=== PATIENT | male | born 1960 | race Caucasian/White ===

== ENCOUNTER 2020-12-08 01:03 | Inpatient (IN) | payer MEDICAID ==
[~2020-12-08] VITALS: Ht 170.2 cm; Wt 71.0 kg
--- NOTE | 2020-12-08 01:15 | NUR ---
PT [id number] FROM A [facility] C/O FEVER, TACHYCARDIA, AND LOW O2 SATURATION. PER REPORT PT DESATTED TO 89% W/ 4 LITERS O2 ON FIELD. UPON ARRIVAL, PT PLACED ON 6LPM O2. PT SATTING 98%. PT CONNECTED TO THE RESTORATIVE ART EMBALMER AND POX.
--- NOTE | 2020-12-08 01:18 | NUR ---
Jhonny blank in [facility] - 12/08/20 at 0119 by FAVIOLA CALLED LAB REGARDING COVID SWABS
--- NOTE | 2020-12-08 01:19 | NUR ---
CALLED LAB REGARDING COVID SWABS
[2020-12-08] MEDS ORDERED: ACETAMINOPHEN 650 MG/SUPP.RECT RC ONE ×2 (01:22→01:30)
--- NOTE | 2020-12-08 01:23 | NUR ---
BLOOD COLLECTED AND SENT TO LAB
--- NOTE | 2020-12-08 01:29 | NUR ---
XRAY AT BEDSIDE
--- NOTE | 2020-12-08 01:35 | NUR ---
MCLAREN FLINT ([phone]) PT'S DAUGHTER (ОЛЕГ): [phone]
[2020-12-08 01:37] LABS: BASOPHILS # (AUTO) 0.1 /CMM (0.0-0.2); EOSINOPHILS % (AUTO) 0.2 % (0.0-6.0); HEMATOCRIT 42 % (39-51); LYMPHOCYTES # (AUTO) 2.1 /CMM (0.8-4.8); LYMPHOCYTES % (AUTO) 17.3 % (20.0-44.0); MEAN CORPUSCULAR HGB CONC 31 g/dl (31.0-36.0); MEAN CORPUSCULAR VOLUME 79 fL (80-96); MONOCYTES # (AUTO) 0.9 /CMM (0.1-1.30); MONOCYTES % (AUTO) 6.8 % (2.0-12.0); NEUTROPHILS # (AUTO) 9.3 /CMM (1.8-8.9); NEUTROPHILS % (AUTO) 74.7 % (43.0-81.0); PLATELET COUNT (AUTO) 295 /CMM (150-450); RED BLOOD CELL COUNT(AUTO) 5.38 MIL/uL (4.5-6.0); WHITE BLOOD COUNT (AUTO) 12.4 K/uL (4.3-11.0)
[2020-12-08 01:38] LABS: BILIRUBIN,URINE NEGATIVE (NEGATIVE); COLOR,URINE YELLOW (YELLOW); LEUKOCYTE ESTERASE ,URINE NEGATIVE (NEGATIVE); NITRITE, URINE NEGATIVE (NEGATIVE); PROTEIN,URINE 30 mg/dl (NEGATIVE); UGLUCOSE >=1000 mg/dL (NEGATIVE); UROBILINOGEN,URINE 0.2 EU/dL (0.2)
[2020-12-08] MEDS ORDERED: CEFTRIAXONE 1GM BAG (ER ONLY) 50 ML IV ONE (01:48)
--- NOTE | 2020-12-08 01:52 | NUR ---
Attempted to call [facility] to obtain home medication list. No answer.
[2020-12-08] MEDS ORDERED: CEFEPIME 1 GM VIAL ONE (01:59)
[2020-12-08 02:00] LABS: ALANINE AMINOTRANSFERASE 20 U/L (12-78); ALBUMIN 2.7 g/dL (3.4-5.0); ALKALINE PHOSPHATASE 90 U/L (46-116); ASPARTATE AMINOTRANSFERASE 20 U/L (15-37); B-TYPE NATRIURETIC PEPTIDE 232 PG/ML (0-125); BILIRUBIN,DIRECT 0.1 mg/dL (0.0-0.2); BILIRUBIN,TOTAL 0.4 mg/dL (0.2-1.0); CALCIUM, SERUM 9.1 mg/dL (8.5-10.1); CARBON DIOXIDE 30 mmol/L (21-32); CHLORIDE 103 mmol/L (98-107); CREATININE 1.2 mg/dL (0.6-1.3); POTASSIUM 3.8 mmol/L (3.5-5.1); SODIUM SERUM 143 mmol/L (136-145); TOTAL PROTEIN, SERUM 6.8 g/dL (6.4-8.2); UREA NITROGEN, BLOOD 32 mg/dL (7-18)
[2020-12-08] MEDS ORDERED: CEFTRIAXONE 1GM BAG (ER ONLY) 1 GM/50 ML PIGGYBACK IV ONE (02:00)
[2020-12-08] MEDS ORDERED: CEFEPIME 1 GM in IV D5W 50 ML IV ONE (02:00)
[2020-12-08] MEDS ORDERED: IV NS 0.9% 1,000 ML BAG IV ONE ×3 (02:00→02:30)
[2020-12-08] MEDS ORDERED: AZITHROMYCIN 500 MG in IV D5W 250 ML IV ONE (02:00)
--- NOTE | 2020-12-08 02:00 | NUR ---
LACTIC 3.4 GLUCOSE 375
[2020-12-08 02:02] LABS: BACTERIA,URINE None seen /HPF (None Seen); CALCIUM OXALATE CRYSTALS,UR Many /HPF (None Seen); SQUAMOUS EPITHELIAL CELL,UR Few /HPF (None Seen)
[2020-12-08 02:02] LABS: GLUCOSE 375 mg/dL (74-106)
[2020-12-08] MEDS ORDERED: AZITHROMYCIN 500 MG VIAL ONE (02:10)
[2020-12-08] MEDS ORDERED: MAGNESIUM HYDROXIDE 30 ML UDC PO PRN (03:00)
[2020-12-08] MEDS ORDERED: ONDANSETRON HCL/PF 4 MG/2 ML VIAL IVP PRN (03:00)
[2020-12-08] MEDS ORDERED: IV NS 0.9% 1,000 ML IV PRN (03:00)
[2020-12-08] MEDS ORDERED: MORPHINE SULFATE INJ 2 MG/ML DISP.SYRIN IV PRN (03:00)
[2020-12-08] MEDS ORDERED: Z GUARD REMEDY 2 OZ OINT TP PRN (03:00)
[2020-12-08] MEDS ORDERED: MAG HYDROX/AL HYDROX/SIMETH 30 ML UDC PO PRN (03:00)
[2020-12-08] MEDS ORDERED: ENOXAPARIN SODIUM 40 MG/0.4 ML DISP.SYRIN SQ ONE (03:10)
[2020-12-08] MEDS: ENOXAPARIN SODIUM 40 MG/0.4 ML DISP.SYRIN SQ SCH ×2 (03:11→20:22)
--- NOTE | 2020-12-08 06:09 | NUR ---
REPORT GIVEN TO GOLDY NICHOLAS FOR SELMA
--- NOTE | 2020-12-08 07:05 | NUR ---
PT TRANSFERRED TO ROOM VIA ACLS PROTOCOL
--- NOTE | 2020-12-08 07:10 | NUR ---
COAL HIKER ADMITTING NOTES PT BROUGHT TO [facility] UNIT FROM ER. REPORT OBTAIN FROM NIGHT NURSE. NOT IN ANY ACUTE DISTRESS. PT IS OBTUNDED, NON VERBAL, BUT ABLE TO OPEN EYES. SKIN IS WARM AND DRY TO TOUCH. ON TRACHEOSTOMY COLLAR, O2 AT 6LPM WITH O2 SATURATION OF 98%.. RENDON CATHETER IN PLACE DRAWING YELLOW COLORED URINE. GTF INTACT WITH NO RESIDUAL, NPO STATUS. LEFT & RIGHT FOREARM IV #18 INTACT AND FLUSHED WELL. HEAD OF BED KEPT ELEVATED. WILL CONTINUE TO MONITOR.
--- NOTE | 2020-12-08 07:19 | NUR ---
TELE-1/LABORER ORCHARD PER BLOW MOLDING MACHINE TENDER NO TELE BOXES AVAILABLE. ENDORSED TO KATLYN WINSLOW FOR CONT OF CARE.
[2020-12-08 07:25] VITALS: BP 136/84
[2020-12-08 08:00] VITALS: BP 136/84
--- NOTE | 2020-12-08 08:36 | NUR ---
RT NOTE: PATIENT SUCTIONED AND LAVAGED TO OBTAIN LARGE AMOUNT OF THICK GREEN/BROWN SECRETIONS. PATIENT IS ON T-PIECE 5LPM OXYGEN WITH PE04=168%. NOTED TRACH SITE TO BE RED AND NOTIFIED CHARGE NURSE(RICCI). WILL CONTINUE TO MONITOR.
[2020-12-08] MEDS ORDERED: NUT.237L30 GT (08:55)
[2020-12-08] MEDS ORDERED: SUCR1ORA15 GT (08:55)
[2020-12-08] MEDS ORDERED: ASPI-1169 GT (08:55)
[2020-12-08] MEDS ORDERED: AMLO10TA4 GT (08:55)
[2020-12-08] MEDS ORDERED: IPRA3AMP23 IH ×2 (08:55)
[2020-12-08] MEDS ORDERED: PANT40TA49 GT (08:55)
[2020-12-08] MEDS ORDERED: LEVE500T9 GT (08:55)
[2020-12-08] MEDS ORDERED: VALS320T2 GT (08:55)
[2020-12-08] MEDS ORDERED: PANTOPRAZOLE 40 MG VIAL IV SCH (09:00)
[2020-12-08 12:00] VITALS: BP 125/74
[2020-12-08] MEDS ORDERED: CEFEPIME 1 GM in IV D5W 50 ML IV SCH (14:00)
[2020-12-08 16:00] VITALS: BP_SYST 118; BP_SYST 130; BP_DIAS 62; BP_DIAS 72
[2020-12-08] MEDS ORDERED: DEXTROSE 50%-WATER 50 ML DISP.SYRIN IV PRN (18:30)
--- NOTE | 2020-12-08 18:52 | NUR ---
TEXT TRANSCRIBER CLOSING NOTES PT REMAINS OBTUNDED, BUT ABLE TO OPEN EYES. NOT IN ANY DISTRESS NOTED. STILL ON TRACHEOSTOMY COLLAR AT 5LPM WITH O2 SAT >90S. LEFT AND RIGHT FOREARM IV#18 INTACT AND FLUSHED WELL. WILL ENDORSE TO NEXT SHIFT FOR SELMA.
[2020-12-08] MEDS ORDERED: INSULIN REGULAR, HUMAN 100 UNIT/ML 3 ML VIAL SQ PRN (19:00)
--- NOTE | 2020-12-08 19:20 | NUR ---
RN NOTE RECEIVED PT NON VERBAL IN BED BUT PHYSICALLY RESPONSIVE TO VERBAL AND TACTILE STIMULI, IN SEMI HAMILTON'S POSITION, WITH TRACH COLLAR CONNECTED TO 2L OF O2. NO SIGNS OF RESPIRATORY DISTRESS, O2 SATURATION 99% VIA CONTINUOUS PULSE OX MONITORING, NO SIGNS OF PAIN OR DISCOMFORT, SR ON THE TELE MONITOR. RENDON CATHETER PATENT AND IN PLACE DRAINING CLEAR YELLOW URINE. GT PATENT AND FLUSHED. IV SITES PATENT AND FLUSHED WITHOUT COMPLICATIONS NOTED AT SITES, SAFETY MEASURES IN PLACE PER PROTOCOL, BED ALARM ON, BED LOCKED AND IN LOW POSITION, SIDE RAILS UP X 2, WILL MONITOR PATIENT.
[2020-12-08] MEDS: IV NS 0.9% 1,000 ML IV PRN (19:40)
[2020-12-08] MEDS: GLUCERNA 1.2 1,000 ML BOTTLE NG PRN (19:58)
[2020-12-08 20:00] VITALS: BP 117/78
[2020-12-08] MEDS: LEVETIRACETAM SOL (5 ML) 100 MG/ML UDC GT SCH (20:20)
[2020-12-08] MEDS: SUCRALFATE 1 G/10 ML UDC GT SCH (20:20)
--- NOTE | 2020-12-08 22:00 | NUR ---
RN NOTE COMPLETE BED BATH AND LINEN CHANGE COMPLETED, PT TOLERATED WELL. RESUMED TUBE FEEDING WITH RATE OF 40CC/HOUR.
--- NOTE | 2020-12-08 22:09 | NUR ---
RN NOTE SPOKE TO DAUGHTER ON THE PHONE AND GAVE UPDATE ON PATIENT'S STATUS AND PLAN OF CARE.
[2020-12-08] MEDS ORDERED: PIPERACILLIN /TAZOBACTAM 3.375 G VIAL IV ONE ×2 (22:49→22:50)
[2020-12-08] MEDS: ZOSYN IVPB 3.375 G in IV D5W 50ml IV SCH (23:05)
[2020-12-08] MEDS: INSULIN REGULAR, HUMAN 100 UNIT/ML 3 ML VIAL SQ PRN (23:23)
[2020-12-08] MEDS: BLOOD SUGAR DIAGNOSTIC 1 EACH STRIP IN SCH (23:24)
[2020-12-09] VITALS (7 sets, daily range): BP systolic 127–170; BP diastolic 65–84
--- NOTE | 2020-12-09 04:00 | NUR ---
RN NOTE PT SLEEPING IN BED COMFORTABLY WITHOUT SIGNS OF DISTRESS, PAIN OR DISCOMFORT. SAFETY MEASURES IN PLACE, O2 SATURATION 100% VIA CONTINUOUS PULSE OX MONITORING, WILL CONTINUE TO MONITOR.
[2020-12-09] MEDS: HYDROCODONE/APAP 5/325MG TABLET GT PRN (04:27)
[2020-12-09] MEDS: IV NS 0.9% 1,000 ML IV PRN (04:36)
[2020-12-09] MEDS: ZOSYN IVPB 3.375 G in IV D5W 50ml IV SCH (05:11)
[2020-12-09] MEDS: INSULIN REGULAR, HUMAN 100 UNIT/ML 3 ML VIAL SQ PRN ×3 (05:35→17:18)
[2020-12-09] MEDS: BLOOD SUGAR DIAGNOSTIC 1 EACH STRIP IN SCH ×3 (05:36→17:09)
[2020-12-09 05:49] LABS: BASOPHILS # (AUTO) 0.1 /CMM (0.0-0.2); BASOPHILS % (AUTO) 0.7 % (0.0-2.0); EOSINOPHILS % (AUTO) 3.7 % (0.0-6.0); HEMATOCRIT 35 % (39-51); HEMOGLOBIN 10.8 g/dL (13.5-17.5); LYMPHOCYTES # (AUTO) 1.6 /CMM (0.8-4.8); MEAN CORPUSCULAR HGB CONC 31 g/dl (31.0-36.0); MEAN CORPUSCULAR VOLUME 77 fL (80-96); MONOCYTES # (AUTO) 0.7 /CMM (0.1-1.30); MONOCYTES % (AUTO) 6.9 % (2.0-12.0); NEUTROPHILS # (AUTO) 7.7 /CMM (1.8-8.9); NEUTROPHILS % (AUTO) 73.7 % (43.0-81.0); PLATELET COUNT (AUTO) 202 /CMM (150-450); RED BLOOD CELL COUNT(AUTO) 4.47 MIL/uL (4.5-6.0); WHITE BLOOD COUNT (AUTO) 10.4 K/uL (4.3-11.0)
[2020-12-09 06:06] LABS: CALCIUM, SERUM 8.5 mg/dL (8.5-10.1); CREATININE 0.9 mg/dL (0.6-1.3); MAGNESIUM 1.9 mg/dL (1.8-2.4); PHOSPHORUS 2.6 mg/dL (2.5-4.9); POTASSIUM 3.1 mmol/L (3.5-5.1)
--- NOTE | 2020-12-09 06:40 | NUR ---
RN NOTE NO ACUTE CHANGES OBSERVED OVERNIGHT. PT REMAINS NON VERBAL IN BED BUT PHYSICALLY RESPONSIVE TO VERBAL AND TACTILE STIMULI. HEAD OF BEAD KEPT AT SEMI HAMILTON'S POSITION. WITH TRACH COLLAR CONNECTED TO 4L OF O2. NO SIGNS OF RESPIRATORY DISTRESS. RESPIRATIONS EVEN AND UNLABORED, 100% O2 SATURATION VIA CONTINUOUS PULSE OX MONITORING, NO SIGNS OR SYMPTOMS OF PAIN OR DISCOMFORT, SR ON THE TELE MONITOR, RENDON CATHETER PATENT AND IN PLACE DRAINING CLEAR YELLOW URINE VIA GRAVITY, GT PATENT AND FLUSHED. WITH TUBE FEEDING RUNNING AT 60ML/HOUR WITH GOAL OF 80ML/HOUR. NO RESIDUAL NOTED, IV SITES PATENT AND INTACT, WITH NS@ 100ML/HOUR RUNNING ORDERED WITHOUT COMPLICATIONS NOTED AT SITE, ALL NEEDS MET AND ATTENDED TO, TURNED AND REPOSITIONED FOR COMFORT, SAFETY MEASURES IN PLACE PER PROTOCOL, BED ALARM ON, BED LOCKED AND IN LOW POSITION, SIDE RAILS UP X 2, WILL ENDORSE TO MORNING RN FOR SELMA.
--- NOTE | 2020-12-09 07:32 | NUR ---
DESIGNER ARCHITECT OPENING NOTE PATIENT IS IN BED RESTING. PATIENT IS IN NO ACUTE DISTRESS. PATIENT IS ON OXYGEN 4L ON TACH. NO SOB NOTED. HOB ELEVATED. PATIENT IS ON BOX CLOSING MACHINE OPERATOR READING ST 102. SAFETY PRECAUTIONS ARE IN PLACE. BED IN THE LOWEST POSITION WITH SIDE RAILS UP. BED BREAK IS ON, CALL LIGHT WITHIN REACH. WILL CONTINUE TO MONITOR PATIENT CLOSELY THROUGH OUT THE SHIFT.
[2020-12-09] MEDS ORDERED: AZITHROMYCIN 500 MG in IV D5W 250 ML IV SCH (09:00)
[2020-12-09] MEDS: SUCRALFATE 1 G/10 ML UDC GT SCH ×4 (09:21→20:13)
[2020-12-09] MEDS: LEVETIRACETAM SOL (5 ML) 100 MG/ML UDC GT SCH ×2 (09:21→20:13)
[2020-12-09] MEDS: AMLODIPINE BESYLATE 10 MG TABLET GT SCH (09:22)
[2020-12-09] MEDS: ASPIRIN 81 MG TAB.CHEW GT SCH (09:22)
[2020-12-09] MEDS: PANTOPRAZOLE 40 MG/PACK PACK GT SCH (09:23)
[2020-12-09] MEDS: POTASSIUM CHLORIDE 20 MEQ POWDER PACKET GT SCH ×2 (11:13→12:33)
[2020-12-09] MEDS: ACETAMINOPHEN 650 MG/SUPP.RECT RC PRN ×2 (11:31→20:30)
--- NOTE | 2020-12-09 11:57 | NUR ---
RN NOTE PATIENTS BP SYSTOLIC 170s, INFORMED DR. JOSE ARMANDO KRUSE. PER MD SHE WILL LOOK OVER PATIENT, AND PLACE MEDICATION TREATMENT NEEDED.
[2020-12-09] MEDS: PIPERACILLIN /TAZOBACTAM 3.375 G in IV D5W 50 ML IV SCH ×2 (12:34→17:10)
--- NOTE | 2020-12-09 15:51 | NUR ---
MANUFACTURING DEVELOPMENT ENGINEER NOTES PATIENT TEMPERATURE 100.0F, IMPLEMENTED COOLING MEASURES.
[2020-12-09] MEDS: IV 1/2NS 1000 ML 1,000 ML IV PRN (17:24)
--- NOTE | 2020-12-09 18:00 | NUR ---
RN NOTE PER PJ NURSING COOK SOUP STILL AWAITING AN AVAILABLE BED FOR TRANSFER TO CLEAN UNIT. PER PJ SHE INFORM UNIT ONCE BED IS AVAILABLE.
--- NOTE | 2020-12-09 18:25 | NUR ---
SHAREBROKER CLOSING NOTE PATIENT IS IN BED RESTING. PATIENT IS IN NO ACUTE DISTRESS. NO SOB NOTED. PATIENT IS ON 4L OXYGEN ON TRACH COLLAR. PATIENT HAS LOW GRADE FEVER. APPLIED COOLING MEASURES. PATIENT IS SCHEDULED FOR A TRANFER Addendum: 12/09/20 at 1835 by PREM HOLLINGSWORTH RN SHAREBROKER CLOSING NOTE PATIENT IS IN BED RESTING. PATIENT IS IN NO ACUTE DISTRESS. NO SOB NOTED. PATIENT IS ON 4L OXYGEN ON TRACH COLLAR. PATIENT HAS LOW GRADE FEVER. APPLIED COOLING MEASURES. PATIENT IS SCHEDULED FOR TRANSFER, WAITING FOR THE AVAILABLE BED. SAFETY PRECAUTIONS ARE IN PLACE. BED IN THE LOWEST POSITION WITH SIDE RAILS UP. BED BREAK IS COLOR TELEVISION CONSOLE MONITOR LIGHT WITHIN REACH. ENDORSE PATIENT TO THE SAP PORTAL DEVELOPER NURSE FOR SELMA.
[2020-12-09] MEDS: GLUCERNA 1.2 1,000 ML BOTTLE NG PRN (19:27)
--- NOTE | 2020-12-09 19:30 | NUR ---
BASIC SCIENCES DEAN OPENING NOTE RECEIVED PATIENT IN BED. PATIENT IS NONVERBAL, OPENS EYES TO TOUCH. ON OXYGEN VIA TRACH COLLAR AT 2L/MIN HUMIDIFIED BUBBLES. RESPIRATIONS ARE EVEN AND UNLABORED. NO S/S SOB NOTED. NO S/S PAIN AT THIS TIME. EXTERNAL TELE MONITOR READS SINUS RHYTHM / SINUS TACH WITH BBB. IN NO APPARENT DISTRESS. IV ACCESS IN RFA#18 RUNNING 1/2NS@75ML/HR. ANOTHER IV ACCESS IN LEFT WRIST PATENT AND SALINE LOCKED. GTUBE IS PRESENT, NO RESIDUAL, RUNNING FEEDING GLUCERNA@80ML/HR. RENDON CATHETER IS PRESENT DRAINING TO GRAVITY, URINE IS YELLOW AND CLEAR. SAFETY MEASURES IN PLACE. BED IS LOW AND LOCKED. HOB ELEVATED IN SEMI FOWLERS. SIDE RIALS UP X2. CALL LIGHT WITHIN REACH. WILL CONTINUE TO MONITOR THROUGHOUT SHIFT.
[2020-12-09] MEDS ORDERED: VANCOMYCIN 1 GM in IV D5W 250ml IV ONE (20:00)
[2020-12-09] MEDS: ENOXAPARIN SODIUM 40 MG/0.4 ML DISP.SYRIN SQ SCH (20:14)
--- NOTE | 2020-12-09 20:30 | NUR ---
teletypesetter monitor note administered prn tyleonol 650mg rectally for temp 100.4. also applied ice. will monitor throughout shift.
--- NOTE | 2020-12-09 20:49 | NUR ---
telephone station repairer note called [facility] 3 w to see if bed is available. not at this time. spoke with daughter, informed her there is currently no bed for patient to transfer to. also informed her patients temp is 100.4 and im going to give tylenol. informed her will call and leave a message if patient is being transferred tonight.
[2020-12-09] MEDS ORDERED: MEROPENEM 500 MG in IV NS 0.9% 50 ML IV SCH (21:00)
[2020-12-09] MEDS: MEROPENEM 500 MG in IV NS 0.9% 50 ML IV SCH (21:26)
--- NOTE | 2020-12-09 22:27 | NUR ---
satellite television installer note called daughter at number [phone] and informed her that patient is moving to room 311-1.
--- NOTE | 2020-12-09 23:04 | NUR ---
SHELL FREEZING MACHINE OPERATORORDER ENTRY ADMINISTRATOR NOTE - MED SURG 311-1 REPORT GIVEN TO MARVA WINSLOW. PATIENT WAS TRANSFERRED TO MED SURG 3RD FLOOR ROOM 311-1. ALL MEDICATIONS PATIENTS CHART AND BELONGINGS TRANSFERRED WITH HIM. RT DARRELL, 3W INDUSTRIAL RECRUITER AND 3W ORDER ENTRY ADMINISTRATOR VIA BED. PATIENT REMAINED OBTUNDED.TRANSFERED WITH O2 TANK TO [facility]. NO RESP DISTRESS. NO PAIN NOTED. CONNECTED TO DEFIB BOX FOR TANSFER. NO DISTRESS. IV ACCESS MAINTAINED AND KEPT SL. GTUBE MAINTAINED AND CLAMPED. IV POLE WITH IVF AND FEEDING WERE TAKEN WITH PATIENT.
--- NOTE | 2020-12-09 23:26 | NUR ---
MS/ RN NOTE PT RECEIVED. ENDORSED BY GOLDY CORDERO. PT IN STABLE CONDITION. WILL CONTINUE PLAN OF CARE. PT ALERT AND ORIENTED X 1 NON VERBAL. NO SIGNS OF RESPIRATORY DISTRESS NOTED. NO SIGNS OF PAIN NOTED. PT ON TRACH SHILEY #6.PT HAS A RENDON CATHETER RENDON RENDON IN TACH WITH CLEAR YELLOW URINE OUTPUT NOTED. WILL CONTINUE PLAN OF CARE.
[2020-12-10] VITALS: BP 163/83
[2020-12-10] MEDS: BLOOD SUGAR DIAGNOSTIC 1 EACH STRIP IN SCH ×4 (00:28→17:49)
[2020-12-10] MEDS: INSULIN REGULAR, HUMAN 100 UNIT/ML 3 ML VIAL SQ PRN ×4 (00:28→17:49)
[2020-12-10 03:46] VITALS: BP 163/83
[2020-12-10] MEDS: MEROPENEM 500 MG in IV NS 0.9% 50 ML IV SCH (04:25)
[2020-12-10 06:00] VITALS: BP 151/81
--- NOTE | 2020-12-10 06:42 | NUR ---
MS/ RN CLOSING NOTES PT LAYING IN BED. A/O X1. NON VERBAL. EYES OPEN SPONTANEOUSLY TO SOUND AND TOUCH. VENT: SHILEY #6, 4L TRACH COLLAR. O2 SATURATION 100%. 0600 TEMPERATURE TAKEN 99.6. NO FEVER NOTED. RFA GAUGE 20 RUNNING 1/2 NS 75 ML/ HR. PATENT. NO OCCLUSIONS, NO INFILTRATION. G TUBE RUNNING GLUCERNA. MINIMUM RESIDUAL VOLUME NOTED. 0600 BLOOD SUGAR 220, 6 UNITS ADMINISTERED. WILL ENDORSE TO MORNING SHIFT. WILL CONTINUE PLAN OF CARE.
[2020-12-10 07:05] LABS: BASOPHILS # (AUTO) 0.1 /CMM (0.0-0.2); EOSINOPHILS % (AUTO) 7.1 % (0.0-6.0); HEMATOCRIT 34 % (39-51); HEMOGLOBIN 10.5 g/dL (13.5-17.5); LYMPHOCYTES # (AUTO) 1.7 /CMM (0.8-4.8); LYMPHOCYTES % (AUTO) 25.3 % (20.0-44.0); MEAN CORPUSCULAR HGB CONC 31 g/dl (31.0-36.0); MEAN CORPUSCULAR VOLUME 77 fL (80-96); MONOCYTES # (AUTO) 0.6 /CMM (0.1-1.30); MONOCYTES % (AUTO) 9.2 % (2.0-12.0); NEUTROPHILS # (AUTO) 3.9 /CMM (1.8-8.9); NEUTROPHILS % (AUTO) 57.4 % (43.0-81.0); PLATELET COUNT (AUTO) 194 /CMM (150-450); RED BLOOD CELL COUNT(AUTO) 4.32 MIL/uL (4.5-6.0); WHITE BLOOD COUNT (AUTO) 6.8 K/uL (4.3-11.0)
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
[2020-12-10 08:00] VITALS: BP 166/87
[2020-12-10 08:06] LABS: CALCIUM, SERUM 8.7 mg/dL (8.5-10.1); CREATININE 0.8 mg/dL (0.6-1.3); MAGNESIUM 1.9 mg/dL (1.8-2.4); PHOSPHORUS 2.4 mg/dL (2.5-4.9); POTASSIUM 3.1 mmol/L (3.5-5.1)
[2020-12-10] MEDS: SUCRALFATE 1 G/10 ML UDC GT SCH ×4 (08:30→20:54)
[2020-12-10] MEDS: PANTOPRAZOLE 40 MG/PACK PACK GT SCH (08:30)
[2020-12-10] MEDS: LEVETIRACETAM SOL (5 ML) 100 MG/ML UDC GT SCH ×2 (08:31→20:54)
[2020-12-10] MEDS: ASPIRIN 81 MG TAB.CHEW GT SCH (08:31)
[2020-12-10] MEDS: AMLODIPINE BESYLATE 10 MG TABLET GT SCH (08:33)
--- NOTE | 2020-12-10 09:00 | NUR ---
MS/asparagus cutter Morning medication administered via GT, tube flushed before and after administration.
[2020-12-10] MEDS: VANCOMYCIN 1.25 GM in IV D5W 250 ML IV SCH ×2 (09:55→22:44)
[2020-12-10] MEDS: IV 1/2NS 1000 ML 1,000 ML IV PRN (10:04)
--- NOTE | 2020-12-10 10:15 | NUR ---
MS/RN Potassium replacement Potassium replaced with 40meq oral.
[2020-12-10] MEDS ORDERED: POTASSIUM CHLORIDE 20 MEQ TAB.PRT.SR PO SCH (10:30)
--- NOTE | 2020-12-10 10:58 | NUR ---
WOUND CARE CONSULT: PT PRESENTS WITH MULTIPLE SKIN ISSUES INCLUDING GENERALIZED EDEMA, RASH TO PERINEUM AND GROIN AREAS, LEFT EAR DRY SCAB WITH SCAR, SACRAL SCAR, RT UPPER BACK SKIN TEAR AND RT TOES DISCOLORATION, ALL PRESENT ON ADMISSION. RECOMMEND FIRST STEP LOW AIRLOSS MATTRESS. SKIN PROTECTION AND WOUND CARE RECOMMENDATIONS DISCUSSED WITH NURSING STAFF. MD IN AGREEMENT WITH PLAN OF CARE. Addendum: 12/10/20 at 1100 by MAGDI HUA WNDNU Amended: Links added.
[2020-12-10] MEDS: POTASSIUM CHLORIDE 20 MEQ POWDER PACKET PO SCH ×2 (11:12→11:33)
[2020-12-10] MEDS: MEROPENEM 1 G in IV NS 0.9% 100 ML IV SCH ×2 (11:50→20:13)
[2020-12-10] MEDS: GLUCERNA 1.2 1,000 ML BOTTLE NG PRN (12:16)
--- NOTE | 2020-12-10 12:58 | NUR ---
MS/RN S/B Kathy Schumacher, CONTRACT LOADER Seen by CONTRACT LOADER - await final blood culture results, continue with current medications and antibiotics. Provided CONTRACT LOADER with telephone number of daughter to call for update -Tigre -Frida
[2020-12-10 16:00] VITALS: BP 160/81
[2020-12-10] MEDS: CLOTRIMAZOLE 1% 15 GM TUBE TP SCH (16:29)
[2020-12-10] MEDS ORDERED: NEUTRA PHOS 1 POWD.PACKET GT ONE (17:30)
--- NOTE | 2020-12-10 18:24 | NUR ---
MS/RN End note Patient remains in stable condition, discharge planning. Continue to wait for final blood culture results to determine what antibiotics will be needed for discharge. Hasbeen turned and repositioned every 2-3 hours throughout the shift to prevent skin breakdown. Exchanged patient to a isoflex mattress. Will endorse to shift leader.
[2020-12-10 20:00] VITALS: BP 153/71
--- NOTE | 2020-12-10 20:00 | NUR ---
TELERN EYES OPEN, THICK SECRETIONS RT AT BEDSIDE,SUCTIONING. NO RESPIRATORY DISTRESS, ON T PIECE 4L SATURATING 99%. GT FEEDINGS TOLERATED WELL, NO RESIDUALS. HOB AT 45 DEGREES AT ALL TIMES. WATER FLUSHES VIA GT, PER ORDERS. FREQ REPOSITIONING. KEPT DRY AND COMFORTABLE, RENDON TO GRAVITY OUTPUT MONITORED. CONTINUED MONITORING
[2020-12-10] MEDS: ENOXAPARIN SODIUM 40 MG/0.4 ML DISP.SYRIN SQ SCH (20:56)
--- NOTE | 2020-12-10 22:00 | NUR ---
TELERN DUE MEDS GIVEN. NO RESIDUALS. WATER FLUSHES KEEPING TUBE PATENT.
[2020-12-11 00:30] VITALS: BP 159/83
--- NOTE | 2020-12-11 00:30 | NUR ---
TELERN BS 248 SLIDING SCALE COVERAGE GIVEN.
[2020-12-11] MEDS: BLOOD SUGAR DIAGNOSTIC 1 EACH STRIP IN SCH ×4 (00:43→18:22)
[2020-12-11] MEDS: INSULIN REGULAR, HUMAN 100 UNIT/ML 3 ML VIAL SQ PRN ×3 (00:46→18:29)
--- NOTE | 2020-12-11 02:24 | NUR ---
TELERN RT AT BEDSIDE WILL CHANGE INNER CANNULA. THICK BEIGE SECRETIONS.
[2020-12-11] MEDS: MEROPENEM 1 G in IV NS 0.9% 100 ML IV SCH ×3 (04:05→20:47)
--- NOTE | 2020-12-11 06:15 | NUR ---
TELERN TOTALLY BATHED, GT FEEDINGS WELL TOLERATED. HAD LARGE LOOSE GREENISH BM. 375 URINE OUTPUT. REPOSITIONED
--- NOTE | 2020-12-11 07:35 | NUR ---
MS RN OPENING NOTES PATIENT IS IN BED RESTING, OPENS EYES W/ LIMITED TRACKING OF MOVEMENT. BREATHING EVEN AND UNLABORED, WITH T PIECE AND 4L O2, SATURATING 98-100%. IV LINE ON RFA #18 INTACT AND PATENT. GT IS INTACT AND PATENT, FEEDING OF GLUCERNA @ 60CC/HR, NO RESIDUAL NOTED. HOB ELEVATED, ASPIRATION PRECAUTIONS OBSERVED. RENDON CATH IN PLACE, DRAINING YELLOW-COLORED URINE. SAFETY PRECS IN PLACE: BED LOCKED AND ON LOWEST POSITION, SR UP X2, CALL LIGHT W/IN REACH. WILL CONTINUE TO MONITOR.
[2020-12-11 08:00] VITALS: BP 152/87
[2020-12-11 09:40] LABS: CALCIUM, SERUM 8.9 mg/dL (8.5-10.1); CREATININE 0.7 mg/dL (0.6-1.3); POTASSIUM 3.2 mmol/L (3.5-5.1)
[2020-12-11] MEDS: LEVETIRACETAM SOL (5 ML) 100 MG/ML UDC GT SCH ×2 (09:51→20:47)
[2020-12-11] MEDS: ASPIRIN 81 MG TAB.CHEW GT SCH (09:51)
[2020-12-11] MEDS: SUCRALFATE 1 G/10 ML UDC GT SCH ×4 (09:51→20:47)
[2020-12-11] MEDS: PANTOPRAZOLE 40 MG/PACK PACK GT SCH (09:51)
[2020-12-11] MEDS: AMLODIPINE BESYLATE 10 MG TABLET GT SCH (09:51)
[2020-12-11] MEDS: CLOTRIMAZOLE 1% 15 GM TUBE TP SCH ×2 (09:52→16:14)
[2020-12-11 16:00] VITALS: BP 131/67
--- NOTE | 2020-12-11 19:00 | NUR ---
MS RN CLOSING NOTES PATIENT IS IN BED RESTING, OPENS EYES W/ LIMITED TRACKING OF MOVEMENT. BREATHING EVEN AND UNLABORED, WITH T PIECE INTACT, ON 4L O2, SATURATING 97-100%. IV LINE ON RFA #18 INTACT AND PATENT. GT IS INTACT AND PATENT, FEEDING OF GLUCERNA @ 60CC/HR, NO RESIDUAL OBTAINED. ASPIRATION PRECAUTIONS OBSERVED, ELEVATED HOB. RENDON CATH IN PLACE, DRAINING YELLOW-COLORED URINE. SPOKE W/ DTR AND INFORMED ABOUT BLOOD CULTURE RESULT, AWAITING FINAL RESULT. SAFETY PRECS MAINTAINED: BED LOCKED AND ON LOWEST POSITION, SR UP X2, CALL LIGHT W/IN REACH. WILL ENDORSE TO BIOINFORMATICS COMPUTER SCIENTIST RN FOR SELMA.
[2020-12-11 20:22] VITALS: BP 134/68
[2020-12-11] MEDS: ENOXAPARIN SODIUM 40 MG/0.4 ML DISP.SYRIN SQ SCH (20:49)
[2020-12-11] MEDS: VANCOMYCIN 1 GM in IV D5W 250 ML IV SCH (21:52)
--- NOTE | 2020-12-11 22:29 | NUR ---
RT CAME AND SUCTIONED THE PATIENT.
[2020-12-12] VITALS: BP 128/72
[2020-12-12] MEDS: INSULIN REGULAR, HUMAN 100 UNIT/ML 3 ML VIAL SQ PRN ×4 (01:09→18:26)
[2020-12-12] MEDS: GLUCERNA 1.2 1,000 ML BOTTLE NG PRN ×2 (01:19→18:33)
--- NOTE | 2020-12-12 01:37 | NUR ---
RIGHT FA IV INFILTRATED, SWOLLEN AND RED, IV REMOVED,TIP IS INTACT.
[2020-12-12] MEDS: MEROPENEM 1 G in IV NS 0.9% 100 ML IV SCH ×3 (05:26→20:17)
[2020-12-12] MEDS: BLOOD SUGAR DIAGNOSTIC 1 EACH STRIP IN SCH ×4 (06:04→18:24)
[2020-12-12 06:55] LABS: BASOPHILS # (AUTO) 0.1 /CMM (0.0-0.2); BASOPHILS % (AUTO) 0.8 % (0.0-2.0); HEMATOCRIT 35 % (39-51); HEMOGLOBIN 10.9 g/dL (13.5-17.5); LYMPHOCYTES # (AUTO) 1.6 /CMM (0.8-4.8); LYMPHOCYTES % (AUTO) 20.9 % (20.0-44.0); MEAN CORPUSCULAR HGB CONC 31 g/dl (31.0-36.0); MEAN CORPUSCULAR VOLUME 76 fL (80-96); MONOCYTES # (AUTO) 0.6 /CMM (0.1-1.30); MONOCYTES % (AUTO) 7.9 % (2.0-12.0); NEUTROPHILS # (AUTO) 4.8 /CMM (1.8-8.9); NEUTROPHILS % (AUTO) 63.4 % (43.0-81.0); PLATELET COUNT (AUTO) 222 /CMM (150-450); RED BLOOD CELL COUNT(AUTO) 4.59 MIL/uL (4.5-6.0); WHITE BLOOD COUNT (AUTO) 7.6 K/uL (4.3-11.0)
[2020-12-12 07:32] LABS: CALCIUM, SERUM 8.7 mg/dL (8.5-10.1); CREATININE 0.8 mg/dL (0.6-1.3); MAGNESIUM 2.1 mg/dL (1.8-2.4); PHOSPHORUS 2.8 mg/dL (2.5-4.9); POTASSIUM 3.3 mmol/L (3.5-5.1)
[2020-12-12 08:00] VITALS: BP 167/89
--- NOTE | 2020-12-12 08:00 | NUR ---
MS RN OPENING NOTES PATIENT IS IN BED RESTING, OPENS EYES W/ LIMITED TRACKING OF MOVEMENT. BREATHING EVEN AND UNLABORED, WITH T PIECE AND 4L O2, SATURATING 100%. IV LINE ON LT WRIST #18 INTACT AND PATENT. GT IS INTACT AND PATENT, FEEDING OF GLUCERNA @ 60CC/HR, NO RESIDUAL NOTED. HOB ELEVATED, ASPIRATION PRECAUTIONS OBSERVED. RENDON CATH IN PLACE, DRAINING YELLOW-COLORED URINE. TURNED EVERY TWO HRS. SAFETY PRECS IN PLACE: BED LOCKED AND ON LOWEST POSITION, SR UP X2, CALL LIGHT W/IN REACH. WILL CONTINUE TO MONITOR.
[2020-12-12] MEDS: AMLODIPINE BESYLATE 10 MG TABLET GT SCH (09:17)
[2020-12-12] MEDS: PANTOPRAZOLE 40 MG/PACK PACK GT SCH (09:17)
[2020-12-12] MEDS: SUCRALFATE 1 G/10 ML UDC GT SCH ×4 (09:17→21:00)
[2020-12-12] MEDS: ASPIRIN 81 MG TAB.CHEW GT SCH (09:17)
[2020-12-12] MEDS: LEVETIRACETAM SOL (5 ML) 100 MG/ML UDC GT SCH ×2 (09:17→21:00)
[2020-12-12] MEDS: HYDROCODONE/APAP 5/325MG TABLET GT PRN (09:26)
[2020-12-12] MEDS: CLOTRIMAZOLE 1% 15 GM TUBE TP SCH ×2 (09:26→18:38)
[2020-12-12] MEDS: VANCOMYCIN 1 GM in IV D5W 250 ML IV SCH ×2 (09:28→22:27)
[2020-12-12] MEDS ORDERED: POTASSIUM CHLORIDE 20 MEQ POWDER PACKET GT SCH (10:30)
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
[2020-12-12 16:00] VITALS: BP 161/82
--- NOTE | 2020-12-12 19:30 | NUR ---
MS NIKITA INITIAL NOTES RECEIVED REPORT FROM AM NURSE ABHI WHILE DOING OUR ROUNDS. PT IS RESTING AT THIS TIME , RESPIRATION EVEN AND UNLABORED WITH T-PIECE ON COOL AEROSOL AT 4LITERS . OPEN EYES ONLY WHEN YOU TOUCH HIM, SKIN WARM AND DRY TO TOUCH. HE WITH RENDON TO GRAVITY . PATIENT ALSO ON G-TUBE FEEDING GLUCERNA AT 60ML/HR , NO RESIDUAL NOTED AT THIS TIME. NO ASPIRATION WELL. KEPT HIM HOB ON SEMI FOWLERS POSITION. WITH SIDE RAILS X2 UP .KEPT HIM WARM AND COMFORTABLE AT ALL TIMES. WILL CONTINUE MONITORING.
[2020-12-12] MEDS: IV 1/2NS 1000 ML 1,000 ML IV PRN (19:49)
[2020-12-12 20:00] VITALS: BP 145/89
--- NOTE | 2020-12-12 20:18 | NUR ---
RELIEF RN NOTES GIVEN MERREM DUE AT 1999. CHECKED PT ID VERIFICATION PRIOR TO ADMINISTRATION.
[2020-12-12] MEDS: ENOXAPARIN SODIUM 40 MG/0.4 ML DISP.SYRIN SQ SCH (21:01)
--- NOTE | 2020-12-12 22:27 | NUR ---
RELIEF RN NOTES GIVEN VANCO DUE AT 2200. CHECKED PT ID VERIFICATION PRIOR TO ADMINISTRATION. VANCO TROUGH 19.
--- NOTE | 2020-12-13 | NUR ---
MS SIGHTSEEING GUIDE NOTES BLOOD SUGAR CHECKED 204 , 6 UNITS OF INSULIN GIVEN SILVA SQ ORDERED. NO SIGNS OF ANY HYPER GLYCEMIA NOTED, PT TOLERATED G-TUBE FEEDING WELL. NO ASPIRATION NOTED WELL. KEPT HIM WARM AND COMFORTABLE AT ALL TIMES. WILL CONTINUE MONITORING.
[2020-12-13] MEDS: BLOOD SUGAR DIAGNOSTIC 1 EACH STRIP IN SCH ×3 (00:32→12:24)
[2020-12-13] MEDS: INSULIN REGULAR, HUMAN 100 UNIT/ML 3 ML VIAL SQ PRN ×3 (00:40→13:08)
[2020-12-13] MEDS: MEROPENEM 1 G in IV NS 0.9% 100 ML IV SCH ×2 (05:01→11:51)
[2020-12-13 05:55] LABS: BASOPHILS # (AUTO) 0.1 /CMM (0.0-0.2); EOSINOPHILS % (AUTO) 8.3 % (0.0-6.0); HEMATOCRIT 34 % (39-51); HEMOGLOBIN 10.8 g/dL (13.5-17.5); LYMPHOCYTES # (AUTO) 1.7 /CMM (0.8-4.8); LYMPHOCYTES % (AUTO) 20.4 % (20.0-44.0); MEAN CORPUSCULAR HGB CONC 32 g/dl (31.0-36.0); MEAN CORPUSCULAR VOLUME 76 fL (80-96); MONOCYTES # (AUTO) 0.6 /CMM (0.1-1.30); MONOCYTES % (AUTO) 7.3 % (2.0-12.0); NEUTROPHILS # (AUTO) 5.3 /CMM (1.8-8.9); PLATELET COUNT (AUTO) 238 /CMM (150-450); RED BLOOD CELL COUNT(AUTO) 4.48 MIL/uL (4.5-6.0); WHITE BLOOD COUNT (AUTO) 8.4 K/uL (4.3-11.0)
[2020-12-13 06:20] LABS: CALCIUM, SERUM 9.1 mg/dL (8.5-10.1); CREATININE 0.8 mg/dL (0.6-1.3); MAGNESIUM 2.2 mg/dL (1.8-2.4); PHOSPHORUS 2.8 mg/dL (2.5-4.9); POTASSIUM 3.7 mmol/L (3.5-5.1)
--- NOTE | 2020-12-13 07:08 | NUR ---
MS AIR AND HYDRONIC BALANCING TECHNICIAN CLOSING NOTES PT RESTING COMFORTABLY IN BED WITHOUT ANY DISTRESS NOTED. STABLE TROUGHOUT THE NIGHT. G-TUBE FEEDING TOLERATED WELL, NO ASPIRATION NOTED. BLOOD SUGAR 212 , 6 UNITS OF INSULIN GIVEN SILVA SQ ORDERED. MORNING CARE DONE . WILL ENDORSE TO AM NURSE FOR CONTINUITY OF CARE.
--- NOTE | 2020-12-13 07:30 | NUR ---
RN OPENING NOTE. PT IS ADMITTED TO HOSPITAL WITH DX OF SEPSIS AND HYPOXIA. NKA. PT IS AROUSABLE TO LIGHT TOUCH. PT IS UNABLE TO SPEAK. PT IS CURRENTLY ON 3L O2 VIA TRACH. PT HAS O2 SAT OF 98%. PT HAS BP OF 165/80 WITH HR OF 112. 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 PT HAS MULTIPLE WOUNDS ON THE BACK. PT HAS G TUBE PRESENT WITH GLUCERNA. PT HAS IVF ON L WRIST 18 G. PT IS SLEEPING IN BED. BED IN LOWEST POSITION. 2 SIDE RAILS RAISED, CALL LIGHT WITHIN REACH. WILL CONTINUE TO MONITOR.
[2020-12-13 08:00] VITALS: BP_SYST 146; BP_SYST 165; BP_DIAS 79; BP_DIAS 80
[2020-12-13] MEDS: PANTOPRAZOLE 40 MG/PACK PACK GT SCH (08:53)
[2020-12-13] MEDS: ASPIRIN 81 MG TAB.CHEW GT SCH (08:53)
[2020-12-13] MEDS: LEVETIRACETAM SOL (5 ML) 100 MG/ML UDC GT SCH (08:53)
[2020-12-13] MEDS: CLOTRIMAZOLE 1% 15 GM TUBE TP SCH (08:54)
[2020-12-13] MEDS: AMLODIPINE BESYLATE 10 MG TABLET GT SCH (08:54)
[2020-12-13] MEDS: SUCRALFATE 1 G/10 ML UDC GT SCH ×2 (08:54→12:04)
--- NOTE | 2020-12-13 10:05 | NUR ---
PT'S VANCO LEVEL IS 23-HELD VANCO IV.NOTIFIED REJI PHARMACIST.
[2020-12-13 12:00] VITALS: BP 146/79
[2020-12-13] MEDS: GLUCERNA 1.2 1,000 ML BOTTLE NG PRN (12:18)
[2020-12-13] MEDS ORDERED: ENOX40DI SQ (12:42)
[2020-12-13] MEDS ORDERED: METF-440 PO (12:42)
[2020-12-13] MEDS ORDERED: CLOT15CR35 TP (12:42)
--- NOTE | 2020-12-13 17:56 | NUR ---
DISCHARGED TO [facility] VIA AMBULANCE WITH STABLE V/S AND GAVE REPORT TO GOLDY HOLT OF [facility].PT WILL BE IN ROOM 2A.IV H/L REMOVED TO LT WRIST WITH NO BLEEDING NOTED. GT AND RENDON CATHETER INTACT. WOUND TX DONE ORDERED.WITH MULTIPLE UNOPEN AND OPEN BLISTERS AND COVERED WITH FOAM DRSG AFTER CLEANSING WITH NS.NOTIFIED PT'S DAUGHTER,ОЛЕГ OF THE DISCHARGE.
[2020-12-14] MEDS ORDERED: VANCOMYCIN 0.75 GM in IV D5W 250 ML IV SCH (09:00)
== END 2020-12-13 17:30 | disposition home or self-care (01) | DRG 720 ==
LOC: ER 01:06 → TRANSITION 02:31 → TELE1 04:39 → TELE 12-09 23:12 → MED 12-09 23:16 → TELE 12-10 07:35 → MED 12-10 07:37
PROVIDERS: ADMIT Nurse Practitioner Acute Care; ATTEND Registered Nurse
DX: A41.9 Sepsis, unspecified organism (principal); G93.41 Metabolic encephalopathy; J96.01 Acute respiratory failure with hypoxia; R13.10 Dysphagia, unspecified; R53.2 Functional quadriplegia; J69.0 Pneumonitis due to inhalation of food and vomit; Z93.1 Gastrostomy status; E87.2 Acidosis; E11.65 Type 2 diabetes mellitus with hyperglycemia; Z93.0 Tracheostomy status; I10 Essential (primary) hypertension; K56.7 Ileus, unspecified; J98.11 Atelectasis; Y95 Nosocomial condition
CPT/HCPCS: 31720; 36415; 71045-TC; 80048-TC; 80061-TC; 80076-TC; 80202-TC; 81001; 82962-TC; 83605-TC; 83735-TC; 83880; 84100-TC; 84484-TC; 85025-TC; 85730-TC; 86140-TC; 87040-TC; 87081-TC; 87086-TC; 94760-TC; 94762-TC; 94799-TC; A4623; A6253; C9113; C9803; G0378; J0456; J0692; J0696; J1650; J1815; J1953; J2185; J2270; J2405; J2543; J3370; J3490; J7030; J7040; J7060; U0003

== ENCOUNTER 2021-03-08 06:45 | Inpatient (IN) | payer MEDICAID ==
[~2021-03-08] VITALS: Ht 170.2 cm; Wt 71.7 kg
[~2021-03-08 06:45] MED LIST: AMLO10TA4 GT; ASPI-1169 GT; CLOT15CR35 TP; ENOX40DI SQ; IPRA3AMP23 IH; LEVE500T9 GT; METF-440 PO; NUT.237L30 GT; PANT40TA49 GT; SUCR1ORA15 GT; VALS320T2 GT
--- NOTE | 2021-03-08 07:16 | NUR ---
DAUGHTER, ASYA [phone] FOR AN UPDATE
--- NOTE | 2021-03-08 07:16 | NUR ---
NOTED W/ CLOGGED F/C. F/C WAS REPLACED WITH A 16F F/C. NOTED W/ GROSS HEMATURIA. DRAINED 1400 ML OF URINE
[2021-03-08] MEDS ORDERED: ACETAMINOPHEN ES 500 MG TABLET PO ONE (07:30)
[2021-03-08] MEDS ORDERED: VANCOMYCIN 1 GM in IV D5W 250 ML IV ONE (07:30)
[2021-03-08] MEDS ORDERED: IV NS 0.9% 1,000 ML BAG IV ONE (07:30)
[2021-03-08] MEDS ORDERED: PIPERACILLIN /TAZOBACTAM 3.375 G in IV D5W 50 ML IV ONE (07:30)
[2021-03-08] MEDS ORDERED: ACETAMINOPHEN ES 500 MG TABLET ONE (07:40)
[2021-03-08 07:59] LABS: HEMATOCRIT 41 % (39-51); HEMOGLOBIN 12.8 g/dL (13.5-17.5); LYMPHOCYTES # (AUTO) 0.5 /CMM (0.8-4.8); LYMPHOCYTES % (AUTO) 2.4 % (20.0-44.0); MEAN CORPUSCULAR HGB CONC 32 g/dl (31.0-36.0); MEAN CORPUSCULAR VOLUME 81 fL (80-96); MONOCYTES # (AUTO) 0.4 /CMM (0.1-1.30); MONOCYTES % (AUTO) 1.8 % (2.0-12.0); NEUTROPHILS % (AUTO) 95.8 % (43.0-81.0); PLATELET COUNT (AUTO) 298 /CMM (150-450); RED BLOOD CELL COUNT(AUTO) 5.02 MIL/uL (4.5-6.0)
[2021-03-08 08:01] LABS: BILIRUBIN,URINE NEGATIVE (NEGATIVE); COLOR,URINE RED (YELLOW); LEUKOCYTE ESTERASE ,URINE MODERATE (NEGATIVE); NITRITE, URINE POSITIVE (NEGATIVE); PROTEIN,URINE >=300 mg/dl (NEGATIVE); UGLUCOSE >=1000 mg/dL (NEGATIVE)
--- NOTE | 2021-03-08 08:03 | NUR ---
Call made to [facility] for admission. Assigned to Bed 108 per nursing filling and packing supervisor
[2021-03-08 08:26] LABS: ALANINE AMINOTRANSFERASE 15 U/L (12-78); ALKALINE PHOSPHATASE 75 U/L (46-116); ASPARTATE AMINOTRANSFERASE 16 U/L (15-37); BILIRUBIN,DIRECT 0.2 mg/dL (0.0-0.2); BILIRUBIN,TOTAL 0.8 mg/dL (0.2-1.0); CALCIUM, SERUM 9.6 mg/dL (8.5-10.1); CARBON DIOXIDE 21 mmol/L (21-32); CHLORIDE 100 mmol/L (98-107); CREATININE 1.5 mg/dL (0.6-1.3); SODIUM SERUM 140 mmol/L (136-145); UREA NITROGEN, BLOOD 39 mg/dL (7-18)
[2021-03-08 08:28] LABS: GLUCOSE 431 mg/dL (74-106); POTASSIUM 2.8 mmol/L (3.5-5.1)
[2021-03-08 08:32] LABS: RBC,URINE TOO NUMEROUS TO COUN /HPF (0-2); SQUAMOUS EPITHELIAL CELL,UR Few /HPF (None Seen); WBC,URINE 51-80 /HPF (0-3)
[2021-03-08 08:33] LABS: BACTERIA,URINE Rare /HPF (None Seen)
--- NOTE | 2021-03-08 08:36 | NUR ---
MULTIPLE ATTEMPTS TO INSERT A 2ND PERIPHERAL IV, INEFFECTIVE.
--- NOTE | 2021-03-08 08:37 | NUR ---
BLADDER IRRIGATED. URINE OUTPUT FROM DARK BLOOD TO RED URINE. SHARI ISIDRO DNP AT BEDSIDE FOR EVAL AND AWARE. URINE OUTPUT MIXED WITH NS = 1500ML.
[2021-03-08] MEDS ORDERED: CLON0.1T GT (08:46)
[2021-03-08] MEDS ORDERED: METO100T14 GT (08:46)
[2021-03-08] MEDS ORDERED: LOSA100T31 GT (08:46)
[2021-03-08] MEDS ORDERED: OM3/1CAP3 GT (08:46)
[2021-03-08] MEDS ORDERED: ZINC220C6 PO (08:46)
[2021-03-08] MEDS ORDERED: [UNRECOGNIZED DRUG - CODE] GT (08:46)
[2021-03-08] MEDS ORDERED: FERR325T23 GT (08:46)
[2021-03-08] MEDS ORDERED: AMIN887L GT (08:46)
[2021-03-08] MEDS ORDERED: INSU100I26 SQ (08:49)
[2021-03-08] MEDS ORDERED: INSU100V39 SQ (08:49)
[2021-03-08] MEDS ORDERED: POTASSIUM CL. PREMIX PERIPHER. 300 ML ONE (08:56)
[2021-03-08] MEDS ORDERED: ONDANSETRON HCL/PF 4 MG/2 ML VIAL IVP PRN (09:00)
[2021-03-08] MEDS: AMLODIPINE BESYLATE 10 MG TABLET GT SCH (09:00)
[2021-03-08] MEDS ORDERED: HYDROCODONE/APAP 5/325MG TABLET GT PRN (09:00)
[2021-03-08] MEDS ORDERED: DEXTROSE 50%-WATER 50 ML DISP.SYRIN IV PRN (09:00)
[2021-03-08] MEDS ORDERED: HOME MED MISCELLANEOUS XX SCH (09:00)
[2021-03-08] MEDS ORDERED: HYDROMORPHONE INJ 2 MG/ML DISP.SYRIN IV PRN (09:00)
[2021-03-08] MEDS ORDERED: ALBUTEROL FS 2.5 MG/0.5 ML VIAL.NEB NEB PRN (09:00)
[2021-03-08] MEDS ORDERED: ZINC SULFATE 220 MG CAPSULE PO SCH (09:00)
[2021-03-08] MEDS ORDERED: LEVETIRACETAM SOL (5 ML) 100 MG/ML UDC PO SCH (09:00)
[2021-03-08] MEDS ORDERED: Z GUARD REMEDY 2 OZ OINT TP PRN (09:00)
--- NOTE | 2021-03-08 09:27 | NUR ---
REPORT GIVEN TO OLIVA WINSLOW. PATIENT TRANSFERRED TO ROOM 108, VIA ACLS PROTOCOL. ENDORSED POTASSIUM IV BAGS TO OLIVA WINSLOW. UNABLE TO START BECAUSE VANCOMYCIN IS STILL INFUSING.
[2021-03-08] MEDS: POTASSIUM CL. PREMIX PERIPHER. 50 ML IV SCH ×6 (09:30→21:43)
[2021-03-08] MEDS: ENOXAPARIN SODIUM 30 MG/0.3 ML DISP.SYRIN SQ SCH (09:55)
[2021-03-08] MEDS: SUCRALFATE 1 G/10 ML UDC GT SCH ×4 (11:15→21:07)
[2021-03-08] MEDS: LEVETIRACETAM SOL (5 ML) 100 MG/ML UDC GT SCH ×2 (11:15→21:08)
[2021-03-08] MEDS: FERROUS SULFATE (325 MG) 325 MG/TAB TABLET GT SCH ×2 (11:15→17:46)
[2021-03-08] MEDS: ASPIRIN 81 MG TAB.CHEW GT SCH (11:15)
[2021-03-08] MEDS: METOPROLOL TARTRATE 50 MG TABLET GT SCH ×2 (11:16→21:09)
[2021-03-08] MEDS: PANTOPRAZOLE 40 MG VIAL IV SCH (11:16)
[2021-03-08] MEDS: ZINC SULFATE 220 MG CAPSULE GT SCH (11:19)
--- NOTE | 2021-03-08 11:20 | NUR ---
RT Received pt on 8 Lpm via trach mask with Shiley 8 cuffless trach. Suctioned for moderate amount of thick yellow/chamberlain secretions. Able to titrate fi02 to 5 Lpm (Sp02 >94%). Will continue to monitor
[2021-03-08 12:00] VITALS: BP 103/54
[2021-03-08] MEDS: CLONIDINE HCL 0.1 MG TABLET GT SCH ×2 (12:00→18:00)
[2021-03-08] MEDS: BLOOD SUGAR DIAGNOSTIC 1 EACH STRIP IN SCH ×3 (12:00→23:31)
[2021-03-08] MEDS: PROSOURCE / PROSTAT (PYXIS) 30 ML UDC GT SCH ×3 (13:00→17:46)
[2021-03-08] MEDS: ACETAMINOPHEN 650 MG/20.3 ML UDC GT PRN ×2 (13:24→21:16)
[2021-03-08] MEDS: ALBUTEROL FS 2.5 MG/0.5 ML VIAL.NEB NEB SCH ×2 (13:27→19:30)
[2021-03-08] MEDS: IV NS 0.9% 1,000 ML IV PRN (13:27)
[2021-03-08] MEDS: ACETYLCYSTEINE 10% SOLN 400 MG/4 ML VIAL NEB SCH ×2 (13:56→23:30)
[2021-03-08] MEDS ORDERED: MEROPENEM 500 MG in IV NS 0.9% 50 ML IV SCH (14:00)
[2021-03-08] MEDS ORDERED: PIPERACILLIN /TAZOBACTAM 3.375 G in IV D5W 50 ML IV SCH (14:00)
[2021-03-08] MEDS: MEROPENEM 1 G in IV NS 0.9% 100 ML IV SCH (14:42)
[2021-03-08] MEDS: GLUCERNA 1.2 1,000 ML BOTTLE GT SCH (14:43)
[2021-03-08 15:54] VITALS: BP 110/53
[2021-03-08] MEDS: INSULIN REGULAR, HUMAN 100 UNIT/ML 3 ML VIAL SQ PRN ×2 (17:54→23:31)
[2021-03-08] MEDS: INSULIN ASPART/LISPRO 100 UNIT/ML CARTRIDGE SQ SCH (17:55)
--- NOTE | 2021-03-08 19:47 | NUR ---
RT neb tx not given due to pending covid lab results. scott rodriguez, notified.
--- NOTE | 2021-03-08 19:56 | NUR ---
PATIENT RECEIVED FROM ER AT 0930. MD AWARE OF HEMATURIA AND TACHYCARDIA. VITAL SIGNS TAKEN. G-TUBE INTACT AND FEEDING RESTARTED AT 80 ML/HR. SAFETY PRECAUTIONS IMPLEMENTED, BED LOCKED IN LOWEST POSITION, SIDE RAILS UP X2, CALL LIGHT WITHIN REACH. LEFT UPPER ARM PICC LINE INSERTED. WILL ENDORSE CONTINUATION OF CARE TO UPCOMING SHIFT.
[2021-03-08 20:00] VITALS: BP 121/65
[2021-03-08] MEDS: VANCOMYCIN 0.75 GM in IV D5W 250 ML IV SCH (21:06)
[2021-03-08] MEDS: INSULIN GLARGINE, 100 UNIT/ML CARTRIDGE SQ SCH (21:45)
[2021-03-09] VITALS: BP 114/66
[2021-03-09] MEDS: CLONIDINE HCL 0.1 MG TABLET GT SCH ×4 (00:04→17:33)
[2021-03-09] MEDS: ALBUTEROL FS 2.5 MG/0.5 ML VIAL.NEB NEB SCH ×4 (01:23→19:43)
[2021-03-09] MEDS: MEROPENEM 1 G in IV NS 0.9% 100 ML IV SCH ×3 (02:06→21:23)
[2021-03-09] MEDS: IV NS 0.9% 1,000 ML IV PRN ×2 (02:47→15:40)
[2021-03-09 04:00] VITALS: BP 129/64
[2021-03-09] MEDS: ACETAMINOPHEN 650 MG/20.3 ML UDC GT PRN ×3 (04:11→21:25)
[2021-03-09] MEDS: MORPHINE SULFATE INJ 2 MG/ML DISP.SYRIN IV PRN ×2 (04:36→23:12)
[2021-03-09 06:28] LABS: BASOPHILS # (AUTO) 0.1 /CMM (0.0-0.2); BASOPHILS % (AUTO) 0.7 % (0.0-2.0); EOSINOPHILS % (AUTO) 2.9 % (0.0-6.0); HEMATOCRIT 31 % (39-51); HEMOGLOBIN 9.9 g/dL (13.5-17.5); LYMPHOCYTES # (AUTO) 0.8 /CMM (0.8-4.8); LYMPHOCYTES % (AUTO) 8.2 % (20.0-44.0); MEAN CORPUSCULAR HGB CONC 32 g/dl (31.0-36.0); MEAN CORPUSCULAR VOLUME 81 fL (80-96); MONOCYTES # (AUTO) 0.5 /CMM (0.1-1.30); MONOCYTES % (AUTO) 5.1 % (2.0-12.0); NEUTROPHILS # (AUTO) 8.2 /CMM (1.8-8.9); NEUTROPHILS % (AUTO) 83.1 % (43.0-81.0); PLATELET COUNT (AUTO) 169 /CMM (150-450); RED BLOOD CELL COUNT(AUTO) 3.79 MIL/uL (4.5-6.0); WHITE BLOOD COUNT (AUTO) 9.9 K/uL (4.3-11.0)
[2021-03-09] MEDS: INSULIN REGULAR, HUMAN 100 UNIT/ML 3 ML VIAL SQ PRN ×3 (06:30→17:29)
[2021-03-09] MEDS: BLOOD SUGAR DIAGNOSTIC 1 EACH STRIP IN SCH ×3 (06:30→17:27)
--- NOTE | 2021-03-09 06:54 | NUR ---
RN notes In bed, resting comfortably with no respiratory distress, On trach (t-piece at 5L O2). Settings well tolerated. Breathing even and unlabored. Noted with elevated temperature 99.7, cooling measures provided. Noted with facial grimace and restlessness, morphine administered x 1, with relief. On Gtube feeding, well tolerated, no residual. Vital signs wnl. Kept clean and dry. Will endorse to next shift for continuity of care.
[2021-03-09 07:02] LABS: ALBUMIN 2.4 g/dL (3.4-5.0); BILIRUBIN,TOTAL 0.5 mg/dL (0.2-1.0); CALCIUM, SERUM 9.1 mg/dL (8.5-10.1); CREATININE 0.8 mg/dL (0.6-1.3); MAGNESIUM 2.1 mg/dL (1.8-2.4); PHOSPHORUS 2.5 mg/dL (2.5-4.9); POTASSIUM 3.2 mmol/L (3.5-5.1); TOTAL PROTEIN, SERUM 6.1 g/dL (6.4-8.2)
[2021-03-09 08:00] VITALS: BP 114/64
[2021-03-09] MEDS: ACETYLCYSTEINE 10% SOLN 400 MG/4 ML VIAL NEB SCH ×3 (08:11→23:29)
[2021-03-09] MEDS: VANCOMYCIN 0.75 GM in IV D5W 250 ML IV SCH ×2 (08:58→17:27)
[2021-03-09] MEDS: PROSOURCE / PROSTAT (PYXIS) 30 ML UDC GT SCH ×3 (08:58→17:26)
[2021-03-09] MEDS: FERROUS SULFATE (325 MG) 325 MG/TAB TABLET GT SCH ×2 (08:59→17:26)
[2021-03-09] MEDS: AMLODIPINE BESYLATE 10 MG TABLET GT SCH (08:59)
[2021-03-09] MEDS: SUCRALFATE 1 G/10 ML UDC GT SCH ×4 (08:59→21:25)
[2021-03-09] MEDS: PANTOPRAZOLE 40 MG VIAL IV SCH (08:59)
[2021-03-09] MEDS: LEVETIRACETAM SOL (5 ML) 100 MG/ML UDC GT SCH ×2 (08:59→21:25)
[2021-03-09] MEDS: ZINC SULFATE 220 MG CAPSULE GT SCH (08:59)
[2021-03-09] MEDS: ASPIRIN 81 MG TAB.CHEW GT SCH (08:59)
[2021-03-09] MEDS ORDERED: ERGOCALCIFEROL (VITAMIN D 2) 50,000 UNIT CAPSULE GT SCH (09:00)
[2021-03-09] MEDS: ENOXAPARIN SODIUM 30 MG/0.3 ML DISP.SYRIN SQ SCH (09:00)
[2021-03-09] MEDS: METOPROLOL TARTRATE 50 MG TABLET GT SCH ×2 (09:00→21:24)
--- NOTE | 2021-03-09 09:00 | NUR ---
RN Note: Pt received on T-piece 5l O2, tolerating well. Open eyes to verbal & tactile stimuli. Needs frequent suctioning with thick yellowish sputum. Noted small hematuria, Dr. Velasco made aware, ok to hold Lovenox. G-Tube running as ordered. F/C draining well with gravity. IV site intact, running IV fluids as ordered. Aspiration precautions observed. Continue to monitor.
[2021-03-09] MEDS: INSULIN ASPART/LISPRO 100 UNIT/ML CARTRIDGE SQ SCH ×2 (09:21→17:32)
[2021-03-09] MEDS: POTASSIUM CHLORIDE 20 MEQ POWDER PACKET GT SCH ×2 (11:35→12:33)
[2021-03-09 12:00] VITALS: BP 103/67
[2021-03-09] MEDS ORDERED: ERGOCALCIFEROL (VITAMIN D2) 8,000 UNIT/ML GT SCH (13:00)
[2021-03-09 16:00] VITALS: BP 121/64
[2021-03-09 20:00] VITALS: BP 154/79
[2021-03-09] MEDS: INSULIN GLARGINE, 100 UNIT/ML CARTRIDGE SQ SCH (21:51)
[2021-03-10] VITALS: BP 148/81
[2021-03-10] MEDS: CLONIDINE HCL 0.1 MG TABLET GT SCH ×4 (00:39→17:37)
[2021-03-10] MEDS: INSULIN REGULAR, HUMAN 100 UNIT/ML 3 ML VIAL SQ PRN ×4 (00:42→17:40)
[2021-03-10] MEDS: BLOOD SUGAR DIAGNOSTIC 1 EACH STRIP IN SCH ×4 (00:43→17:38)
[2021-03-10] MEDS: ALBUTEROL FS 2.5 MG/0.5 ML VIAL.NEB NEB SCH ×4 (01:30→19:38)
[2021-03-10] MEDS: VANCOMYCIN 0.75 GM in IV D5W 250 ML IV SCH ×3 (03:05→17:38)
[2021-03-10 04:00] VITALS: BP 164/94
[2021-03-10] MEDS: IV NS 0.9% 1,000 ML IV PRN ×3 (05:19→22:59)
[2021-03-10] MEDS: MEROPENEM 1 G in IV NS 0.9% 100 ML IV SCH ×3 (05:20→20:56)
[2021-03-10 06:36] LABS: BASOPHILS # (AUTO) 0.1 /CMM (0.0-0.2); BASOPHILS % (AUTO) 1.1 % (0.0-2.0); EOSINOPHILS % (AUTO) 12.7 % (0.0-6.0); HEMATOCRIT 29 % (39-51); HEMOGLOBIN 9.3 g/dL (13.5-17.5); LYMPHOCYTES # (AUTO) 1.3 /CMM (0.8-4.8); LYMPHOCYTES % (AUTO) 17.9 % (20.0-44.0); MEAN CORPUSCULAR HGB CONC 32 g/dl (31.0-36.0); MEAN CORPUSCULAR VOLUME 82 fL (80-96); MONOCYTES # (AUTO) 0.6 /CMM (0.1-1.30); MONOCYTES % (AUTO) 7.6 % (2.0-12.0); NEUTROPHILS # (AUTO) 4.5 /CMM (1.8-8.9); NEUTROPHILS % (AUTO) 60.7 % (43.0-81.0); PLATELET COUNT (AUTO) 152 /CMM (150-450); RED BLOOD CELL COUNT(AUTO) 3.56 MIL/uL (4.5-6.0); WHITE BLOOD COUNT (AUTO) 7.4 K/uL (4.3-11.0)
--- NOTE | 2021-03-10 07:08 | NUR ---
RN notes In bed resting comfortably with no respiratory distress, on 5L O2 via t-piece well tolerated. Noted with facial grimace and perspiration, morphine administered, with help. Spoke with and daughter and gave consent to give morphine or norco whenever needed. No significant change of condition. Vital signs wnl. Kept clean and dry. Will endorse to next shift for continuity of care.
[2021-03-10 07:10] LABS: ALBUMIN 2.2 g/dL (3.4-5.0); BILIRUBIN,TOTAL 0.5 mg/dL (0.2-1.0); CALCIUM, SERUM 8.5 mg/dL (8.5-10.1); CREATININE 0.7 mg/dL (0.6-1.3); MAGNESIUM 1.8 mg/dL (1.8-2.4); PHOSPHORUS 2.4 mg/dL (2.5-4.9)
[2021-03-10] MEDS: ACETYLCYSTEINE 10% SOLN 400 MG/4 ML VIAL NEB SCH ×3 (07:18→23:19)
--- NOTE | 2021-03-10 07:30 | NUR ---
RN Note: Pt received on T-piece 5l O2, tolerating well. Open eyes to verbal & tactile stimuli. Needs frequent suctioning with thick yellowish sputum. Noted small hematuria, will continue to hold Lovenox. G-Tube running as ordered. at 80cc/hr. F/C draining well with gravity. IV site intact, running IV fluids as ordered. Aspiration precautions observed. Continue to monitor and provide treatment.
[2021-03-10 08:00] VITALS: BP 139/90
[2021-03-10 08:08] LABS: POTASSIUM 2.7 mmol/L (3.5-5.1)
[2021-03-10] MEDS: ENOXAPARIN SODIUM 30 MG/0.3 ML DISP.SYRIN SQ SCH (09:00)
[2021-03-10] MEDS: PANTOPRAZOLE 40 MG VIAL IV SCH (09:05)
[2021-03-10] MEDS: FERROUS SULFATE (325 MG) 325 MG/TAB TABLET GT SCH ×2 (09:05→17:36)
[2021-03-10] MEDS: SUCRALFATE 1 G/10 ML UDC GT SCH ×4 (09:05→20:57)
[2021-03-10] MEDS: ASPIRIN 81 MG TAB.CHEW GT SCH (09:05)
[2021-03-10] MEDS: LEVETIRACETAM SOL (5 ML) 100 MG/ML UDC GT SCH ×2 (09:05→20:57)
[2021-03-10] MEDS: ZINC SULFATE 220 MG CAPSULE GT SCH (09:05)
[2021-03-10] MEDS: PROSOURCE / PROSTAT (PYXIS) 30 ML UDC GT SCH ×3 (09:06→17:36)
[2021-03-10] MEDS: AMLODIPINE BESYLATE 10 MG TABLET GT SCH (09:06)
[2021-03-10] MEDS: METOPROLOL TARTRATE 50 MG TABLET GT SCH ×2 (09:06→20:56)
[2021-03-10] MEDS: INSULIN ASPART/LISPRO 100 UNIT/ML CARTRIDGE SQ SCH ×2 (09:09→17:38)
[2021-03-10] MEDS: ACETAMINOPHEN 650 MG/20.3 ML UDC GT PRN ×2 (09:15→14:31)
[2021-03-10] MEDS ORDERED: LORAZEPAM INJ 2 MG/ML VIAL IV PRN (10:30)
[2021-03-10] MEDS ORDERED: NEUTRA PHOS 1 POWD.PACKET PO ONE (11:00)
[2021-03-10] MEDS ORDERED: POTASSIUM CHLORIDE 20 MEQ POWDER PACKET GT ONE ×2 (11:00→15:00)
[2021-03-10] MEDS: MORPHINE SULFATE INJ 2 MG/ML DISP.SYRIN IV PRN (11:40)
[2021-03-10 12:00] VITALS: BP 153/78
[2021-03-10 16:00] VITALS: BP 125/71
--- NOTE | 2021-03-10 19:30 | NUR ---
RN NOTE RECEIVED PT IN BED, WITH AT BEDSIDE. PT W/TRACH ON TPIECE 8L FIO2 35%, NO SIGNS OF DISTRESS NOTED. WITH THICK YELLOW SECRETIONS. ON TELE MONITORING, SINUS TACH WITH HR OF 103. GT IN PLACE PATENT,GT FEEDING OF GLUCERNA AT 80 ML/HR, NO RESIDUAL NOTED, KEPT HOB ELEVATED. RENDON CATH DRAINING BY GRAVITY WITH CLEAR URINE OUTPUT. WILL CONTINUE TO MONITOR.
[2021-03-10 20:00] VITALS: BP 146/77
[2021-03-10] MEDS: INSULIN GLARGINE, 100 UNIT/ML CARTRIDGE SQ SCH (21:19)
[2021-03-11] VITALS: BP 143/83
[2021-03-11] MEDS: CLONIDINE HCL 0.1 MG TABLET GT SCH ×4 (00:08→17:48)
[2021-03-11] MEDS: BLOOD SUGAR DIAGNOSTIC 1 EACH STRIP IN SCH ×4 (00:16→17:48)
[2021-03-11] MEDS: INSULIN REGULAR, HUMAN 100 UNIT/ML 3 ML VIAL SQ PRN ×3 (00:18→18:05)
[2021-03-11] MEDS: ACETAMINOPHEN 650 MG/20.3 ML UDC GT PRN ×3 (00:50→21:51)
--- NOTE | 2021-03-11 00:55 | NUR ---
RN NOTE NOTED WITH ELEVATED TEMP 100.8. TYLENOL GIVEN ORDERED. COOLING MEASURES APPLIED.
[2021-03-11] MEDS: ALBUTEROL FS 2.5 MG/0.5 ML VIAL.NEB NEB SCH ×4 (01:30→19:30)
[2021-03-11] MEDS: VANCOMYCIN 0.75 GM in IV D5W 250 ML IV SCH ×3 (02:07→17:49)
[2021-03-11 04:00] VITALS: BP 148/84
[2021-03-11] MEDS: GLUCERNA 1.2 1,000 ML BOTTLE GT SCH (04:17)
[2021-03-11] MEDS: MEROPENEM 1 G in IV NS 0.9% 100 ML IV SCH ×3 (05:19→22:21)
[2021-03-11 06:16] LABS: BILIRUBIN,TOTAL 0.5 mg/dL (0.2-1.0); CALCIUM, SERUM 8.2 mg/dL (8.5-10.1); CREATININE 0.7 mg/dL (0.6-1.3); MAGNESIUM 1.7 mg/dL (1.8-2.4); PHOSPHORUS 2.6 mg/dL (2.5-4.9); TOTAL PROTEIN, SERUM 5.8 g/dL (6.4-8.2)
[2021-03-11 06:22] LABS: BASOPHILS # (AUTO) 0.1 /CMM (0.0-0.2); BASOPHILS % (AUTO) 1.2 % (0.0-2.0); HEMATOCRIT 27 % (39-51); HEMOGLOBIN 8.9 g/dL (13.5-17.5); LYMPHOCYTES # (AUTO) 1.3 /CMM (0.8-4.8); LYMPHOCYTES % (AUTO) 25.3 % (20.0-44.0); MEAN CORPUSCULAR HGB CONC 33 g/dl (31.0-36.0); MEAN CORPUSCULAR VOLUME 80 fL (80-96); MONOCYTES # (AUTO) 0.6 /CMM (0.1-1.30); MONOCYTES % (AUTO) 11.2 % (2.0-12.0); NEUTROPHILS # (AUTO) 2.9 /CMM (1.8-8.9); NEUTROPHILS % (AUTO) 55.3 % (43.0-81.0); PLATELET COUNT (AUTO) 151 /CMM (150-450); RED BLOOD CELL COUNT(AUTO) 3.39 MIL/uL (4.5-6.0); WHITE BLOOD COUNT (AUTO) 5.3 K/uL (4.3-11.0)
[2021-03-11 06:26] LABS: POTASSIUM 2.5 mmol/L (3.5-5.1)
--- NOTE | 2021-03-11 06:34 | NUR ---
RN NOTES PT REMAIN W/TPIECE, NO SIGNS OF DISTRESS NOTED. SUCTIONED NEEDED. FEVER SUBSIDED, TEMP NOW 98.4. SINUS RHYTHM ON TELE MONITOR W/ HR OF 91. CONTINUE ON GT FEEDING TOLERATING WELL. NO SIGNS OF ASPIRATION NOTED, NO RESIDUALS. KEPT HOB ELEVATED. RENDON INDWELLING WELL WITH CLEAR YELLOW URINE OUTPUT. IV REMAIN INTACT AND PATENT, NS RUNNING AT 100ML/HR NO SIGNS OF INFILTRATION NOTED. WILL ENDORSE TO NEXT SHIFT NURSE FOR SELMA.
--- NOTE | 2021-03-11 06:46 | NUR ---
rn note received critical lab potassium at 2.5. Paged Dr. Pillai, awaiting for call back. Will endorse to next shift nurse.
--- NOTE | 2021-03-11 07:30 | NUR ---
PROMOTIONS OFFICER AM NOTES PROMOTIONS OFFICER AM NOTES RECEIVED PATIENT IN BED, NON VERBAL, OPEN EYES, WITH SHILEY 8 CUFFLESS, T PIECE 8L O2 FIO2 35%, SINUS TACHYCARDIA HR 116 ON MONITOR, RESPIRATION UNLABORED, NOT IN ANY DISTRESS, NO SIGNS OF PAIN, WITH ANA MIDLINE WITH NS AT 100 ML/HR. LEFT WRIST IV ACCESSF LUSHES WELL, BOTH SITES CLEAR. GTF RUNNING AT 80 ML/HR FOR 20 HOURS, OFF AT 0800, ON AT 1300. O RESIDUAL. WELL TOLERATED. RENDON CATH DRAINING TO CLEAR YELLOW URINE, ADEQUATE AMOUNT. SEE NURSING FLOWSHEET FOR SKIN ISSUES. WILL PERFORM PRESCRIBED WOUND TREATMENT IN A WHILE. WILL TURN AND REPOSITION Q 2 HOURS. SAFETY MEASURES IN PLACE. HOB UP 30 DEGREES. CALL LIGHT WITHIN REACH. WILL CONTINUE TO MONITOR. CRITICAL VALUE POTASSIUM LEVEL 2.[address] VEGA BY CANDY DIPPER.
[2021-03-11] MEDS: ACETYLCYSTEINE 10% SOLN 400 MG/4 ML VIAL NEB SCH ×3 (07:48→23:07)
[2021-03-11 08:00] VITALS: BP 148/78
--- NOTE | 2021-03-11 08:15 | NUR ---
RN NOTES DR. SHARI ISIDRO, NOTIFIED OF POTASSIUM LEVEL OF 2.5. WILL DO REPEAT TEST AND WILL RELAY RESULT.
[2021-03-11] MEDS: SUCRALFATE 1 G/10 ML UDC GT SCH ×4 (08:43→21:52)
[2021-03-11] MEDS: ASPIRIN 81 MG TAB.CHEW GT SCH (08:43)
[2021-03-11] MEDS: FERROUS SULFATE (325 MG) 325 MG/TAB TABLET GT SCH ×2 (08:43→17:47)
[2021-03-11] MEDS: LEVETIRACETAM SOL (5 ML) 100 MG/ML UDC GT SCH ×2 (08:43→21:52)
[2021-03-11] MEDS: ZINC SULFATE 220 MG CAPSULE GT SCH (08:44)
[2021-03-11] MEDS: AMLODIPINE BESYLATE 10 MG TABLET GT SCH (08:44)
[2021-03-11] MEDS: METOPROLOL TARTRATE 50 MG TABLET GT SCH ×2 (08:45→21:52)
[2021-03-11] MEDS: PROSOURCE / PROSTAT (PYXIS) 30 ML UDC GT SCH ×3 (08:46→17:48)
[2021-03-11] MEDS: PANTOPRAZOLE 40 MG/PACK PACK GT SCH (08:52)
[2021-03-11] MEDS: ENOXAPARIN SODIUM 30 MG/0.3 ML DISP.SYRIN SQ SCH (08:54)
[2021-03-11] MEDS: INSULIN ASPART/LISPRO 100 UNIT/ML CARTRIDGE SQ SCH ×2 (08:56→18:04)
--- NOTE | 2021-03-11 09:30 | NUR ---
RN NOTES DUE MEDS GIVEN
--- NOTE | 2021-03-11 09:46 | NUR ---
WOUND CARE CONSULT: PT PRESENTS WITH DRY SCAB TO RT THIGH, INTACT DEEP TISSUE INJURY TO SACRUM EXTENDING TO LEFT BUTTOCK AND DEEP TISSUE INJURY IN EVOLUTION TO RT BUTTOCK, ALL PRESENT ON ADMISSION. SURGICAL CONSULT CALLED TO DR BLACKWELL. RECOMMENDATIONS MADE FOR SKIN PROTECTION. DISCUSSED WITH NURSING STAFF. PT IS ON [facility]. IN AGREEMENT WITH PLAN OF CARE. Addendum: 03/11/21 at 0950 by MAGDI HUA WNDNU Amended: Links added.
--- NOTE | 2021-03-11 10:00 | NUR ---
tele fire lieutenant marine: notes dr. king notified re: repeat potassium level=2.5 with new order to give 40meq via g-tube now and repeat same dose in 4 hours. order read back and carried out.
[2021-03-11] MEDS: IV NS 0.9% 1,000 ML IV PRN ×2 (10:24→19:30)
[2021-03-11] MEDS ORDERED: POTASSIUM CHLORIDE 20 MEQ POWDER PACKET GT ONE ×2 (10:30→14:00)
[2021-03-11] MEDS: MORPHINE SULFATE INJ 2 MG/ML DISP.SYRIN IV PRN (11:16)
[2021-03-11] MEDS: Magnesium 1GM/D5W 100ML PREMIX 100 ML IV SCH ×2 (11:17→12:08)
[2021-03-11 12:00] VITALS: BP 126/71
[2021-03-11 16:00] VITALS: BP 138/75
--- NOTE | 2021-03-11 18:49 | NUR ---
CLINICAL DOCUMENT IMPROVEMENT EDUCATOR NOTES PATIENT RESTING, MADE COMFORTABLE, NOT IN ANY DISTRESS, MAGNESIUM AND POTASSIUM REPLETED EARLIER, GTF ONGOING, WATER FLUSHING DONE, IVF AT 20 ML/HR ONGOING, RENDON CATH TOTAL OUTPUT 3100 ML, PM CARE AND PRESCRIBED WOUND TREATMENT DONE, TURNED AND REPOSITIONED Q 2 HOURS, ALL NEEDS MET, NO OTHER SIGNIFICANT CHANGE IN CONDITION. WILL ENDORSE TO NEXT SHIFT FOR SELMA. PATIENT VISITED BY DAUGHTER AND EARLIER. ОЛЕГ'S DAUGHTER PHONE NUMBER [phone] WHITE TO ANSWER ALL HER QUESTIONS ABOUT NEUROLOGY CONSULT.
--- NOTE | 2021-03-11 19:30 | NUR ---
RN OPENING NOTES: RECEIVED NON VERBAL PT IN BED SLEEPING COMFORTABLY. PATIENT IN NO S/SX OF ACUTE DISTRESS AT THIS TIME. NO SOB NOTED. PATIENT'S BREATHING IS EVEN AND UNLABORED. PATIENT IS ON T-PIECE WITH 8L WITH 35% [id number] WELL; AMBU BAG AT BED SIDE ALARMS SET PER PROTOCOL AND AUDIBLE. VENT PLUGGED IN TO RED OUTLET. NO DISTRESS NOTED. PATIENT ON TELE MONITORING READING SINUS TACHY HR IS @120S AT THE TIME OF RECEIVED. PATIENT HAS G TUBE FLUSHING AND PATENT; SITE CLEAN DRY AND INTACT; NO RESIDUAL NOTED; CONNECTED TO FEEDING OF GLUCERNA @80CC/HR; TOLERATES WELL. NOTED IV SITE ON R UA MILDINE #18 AND R WRIST; BOTH PATENT, INTACT AND FLUSHING WELL; NO S/S OF INFECTION OR INFILTRATION. WITH IV FLUID RUNNING ORDERED. RENDON CATH IN PLACE,MODERATE YELLOW COLORED URINE OUTPUT NOTED. SAFETY MEASURES HAVE BEEN PROVIDED AND IMPLEMENTED. PATIENT BED ALARM IS ON. HEAD OF BED ELEVATED. BED IS LOCKED, IN LOWEST POSITION AND SIDE RAILS UP. CALL LIGHT WITHIN REACH OF THE PATIENT. APPLICABLE ISOLATION PRECAUTIONS IN PLACE. WILL CONTINUE TO MONITOR AND REASSESS FOR ANY CHANGES AND WILL CARRY OUT ANY ONGOING AND ACTIVE MD ORDER.
[2021-03-11 20:00] VITALS: BP 148/89
--- NOTE | 2021-03-11 21:15 | NUR ---
GOLDY NOTES AIR INTELLIGENCE SPECIALIST REPORTED PT'S TEMP 101.3@0800. PRN MEDS WILL BE GIVEN AND COOLING MEASURES PROVIDED. LEAD SHAREPOINT DEVELOPER MADE AWARE. WILL RE-EVALUATE AFTER 30 MINUTES- 1 HOUR. WILL CONTINUE TO MONITOR Addendum: 03/11/21 at 2323 by CARMINE DONOHUE RN @1 HOUR RE CLEMENTE DONE'; PT'S TEMPT IS AT 98.2. LEAD SHAREPOINT DEVELOPER MADE AWARE. WILL CONTINUE IN PROVING COOLING MEASURES.
--- NOTE | 2021-03-11 22:40 | NUR ---
RN NOTES ACCU CHECK DONE; 120MG/DL;LANTUS GIVEN SCHEDULED . HEALTHCARE ACCOUNT MANAGER MADE AWARE. WILL CONTINUE TO MONITOR AND ASSESS THROUGHOUT THE SHIFT.
[2021-03-11] MEDS: INSULIN GLARGINE, 100 UNIT/ML CARTRIDGE SQ SCH (22:46)
--- NOTE | 2021-03-11 22:51 | NUR ---
RN NOTES PATIENT'S FAMILY CALLED TO GET UPDATES. SPOKE WITH ([phone] ), PROVIDED GENERAL UPDATES ABOUT PT'S CONDITION. ADVISED PT'S RELATIVE TO CALLBACK IN THE MORNING TO TALK TO MD FOR MORE SPECIFIC INFO ABOUT TREATMENT PLAN. ASSURED PATIENT RELATIVE THAT WILL KEEP THEM POSTED FOR ANY SUDDEN CHANGES TO PT'S CONDITION. FAMILY VERY THANKFUL ABOUT CARE BEING PROVIDED TO THE PATIENT. RN ACKNOWLEDGED. CREDIT ADMINISTRATION SPECIALIST MADE AWARE.
--- NOTE | 2021-03-11 23:00 | NUR ---
RN NOTES NO CHANGE IN PATIENT CONDITION AT THIS TIME PATIENT VITALS STABLE, NO SIGNS OF ACUTE RESPIRATORY DISTRESS. HAIRSPRING I INSPECTOR MADE AWARE. WILL CONTINUE TO MONITOR AND REASSESS FOR ANY CHANGES THROUGHOUT THE SHIFT.
[2021-03-12] VITALS: BP 155/85
[2021-03-12] MEDS: CLONIDINE HCL 0.1 MG TABLET GT SCH ×4 (00:08→17:41)
[2021-03-12] MEDS: BLOOD SUGAR DIAGNOSTIC 1 EACH STRIP IN SCH ×4 (00:31→17:56)
[2021-03-12] MEDS: INSULIN REGULAR, HUMAN 100 UNIT/ML 3 ML VIAL SQ PRN ×3 (00:31→12:22)
[2021-03-12] MEDS: GLUCERNA 1.2 1,000 ML BOTTLE GT SCH ×2 (00:33→20:55)
[2021-03-12] MEDS: VANCOMYCIN 0.75 GM in IV D5W 250 ML IV SCH ×3 (01:13→19:41)
[2021-03-12] MEDS: ALBUTEROL FS 2.5 MG/0.5 ML VIAL.NEB NEB SCH ×5 (01:15→20:31)
--- NOTE | 2021-03-12 03:00 | NUR ---
RN NOTES PATIENT REMAINS IN NO ACUTE RESPIRATORY DISTRESS AT THIS TIME, NO CHANGES TO CONDITION/STATUS. LAWN CARE PROFESSIONAL WELL AWARE. WILL CONTINUE TO MONITOR AND REASSESS FOR ANY CHANGES THROUGHOUT THE SHIFT
[2021-03-12 04:00] VITALS: BP 142/74
[2021-03-12] MEDS: MEROPENEM 1 G in IV NS 0.9% 100 ML IV SCH ×2 (04:05→12:09)
--- NOTE | 2021-03-12 06:57 | NUR ---
RN CLOSING NOTE: PATIENT REMAINS IN ROOM IN NO SIGNS OF RESPIRATORY DISTRESS, PATIENT STILL ON T-PIECE WITH 8L OF O2 35% OF FI02;TOLERATING WELL SATURATING @ >95% SP02. SAFETY MEASURES IMPLEMENTED, BED IN LOWEST POSITION, LOCKED, SIDE RAILS UP, CALL LIGHT WITHIN REACH. ALL NEEDS AND ORDERS ADDRESSED DURING THE SHIFT. IV ACCESS MAINTAINED INTACT, SECURED AND FLUSHING WELL. ALL DUE MEDS GIVEN ORDERED & SCHEDULED ; PATIENT TOLERATED WELL. PATIENT KEPT CLEAN AND COMFORTABLE WITHIN THE SHIFT. PATIENT ENDORSED TO INCOMING SHIFT RN WITH STABLE VITAL SIGN AND FOR CONTINUITY OF CARE.
[2021-03-12 07:06] LABS: CALCIUM, SERUM 8.2 mg/dL (8.5-10.1); CREATININE 0.9 mg/dL (0.6-1.3)
--- NOTE | 2021-03-12 07:25 | NUR ---
RN OPENING NOTE PATIENT RECEIVED IN ROOM RESTING IN SEMI-FOWLERS POSITION. PATIENT IN NO SIGNS OF RESPIRATORY DISTRESS, PATIENT STILL ON T-PIECE WITH 8 LPM, 35% FI02 TOLERATING WELL. SAFETY MEASURES IMPLEMENTED, BED LOCKED IN LOWEST POSITION, SIDE RAILS UP X2, CALL LIGHT WITHIN REACH. PATIENT TACHYCARDIA NOTED. IV ACCESS MAINTAINED INTACT, SECURED AND FLUSHING WELL. NS RUNNING AT 20 ML/HR VIA RIGHT UPPER ARM PICC LINE. WILL CONTINUE TO MONITOR AND PROVIDE CARE THROUGHOUT SHIFT.
[2021-03-12 07:55] LABS: POTASSIUM 2.4 mmol/L (3.5-5.1)
[2021-03-12 08:00] VITALS: BP 175/96
[2021-03-12] MEDS: ACETYLCYSTEINE 10% SOLN 400 MG/4 ML VIAL NEB SCH ×3 (08:30→23:47)
[2021-03-12] MEDS: PANTOPRAZOLE 40 MG/PACK PACK GT SCH (08:46)
[2021-03-12] MEDS: POTASSIUM CL. PREMIX PERIPHER. 50 ML IV SCH ×8 (08:47→15:30)
[2021-03-12] MEDS: ASPIRIN 81 MG TAB.CHEW GT SCH (08:47)
[2021-03-12] MEDS: SUCRALFATE 1 G/10 ML UDC GT SCH ×4 (08:48→21:09)
[2021-03-12] MEDS: FERROUS SULFATE (325 MG) 325 MG/TAB TABLET GT SCH ×2 (08:48→17:41)
[2021-03-12] MEDS: LEVETIRACETAM SOL (5 ML) 100 MG/ML UDC GT SCH ×2 (08:48→21:09)
[2021-03-12] MEDS: AMLODIPINE BESYLATE 10 MG TABLET GT SCH (08:49)
[2021-03-12] MEDS: METOPROLOL TARTRATE 50 MG TABLET GT SCH ×2 (08:49→21:09)
[2021-03-12] MEDS: ZINC SULFATE 220 MG CAPSULE GT SCH (08:49)
[2021-03-12] MEDS: INSULIN ASPART/LISPRO 100 UNIT/ML CARTRIDGE SQ SCH ×2 (08:53→18:02)
[2021-03-12] MEDS: ENOXAPARIN SODIUM 30 MG/0.3 ML DISP.SYRIN SQ SCH (08:54)
[2021-03-12] MEDS: PROSOURCE / PROSTAT (PYXIS) 30 ML UDC GT SCH ×3 (08:56→17:51)
[2021-03-12 12:00] VITALS: BP 196/102
[2021-03-12 12:44] LABS: CHLORIDE,URINE RANDOM 111 mmol/L (55-125); POTASSIUM RNDM,URINE 18 mmol/L (25-125); URINE SODIUM, RANDOM 104 mmol/l (40-220)
[2021-03-12] MEDS: ACETAMINOPHEN 650 MG/20.3 ML UDC GT PRN (13:18)
--- NOTE | 2021-03-12 15:33 | NUR ---
Bioethics Meeting: facilitated phone conference between pt.s Brenda Polanco [phone], Pt.s daughter, Valentina Polanco [phone], Neurologist, Dr. Smart and Glendy Munoz NP regarding moving forward with gallbladder surgery VS. placing pt. on Hospice. Dr. Smart and Glendy Munoz NP explained the treatment options, risks and benefits. Dr. Smart and Glendy Munoz NP addressed the familys questions. Family expressed understanding and requested to think about options today. Family will notify ANDRÉS 03/13/2021 of their decision.
[2021-03-12 16:00] VITALS: BP 146/73
[2021-03-12] MEDS ORDERED: CEFEPIME 1 GM in IV D5W 50 ML IV SCH (16:30)
[2021-03-12 17:26] LABS: CALCIUM, SERUM 8.6 mg/dL (8.5-10.1); CREATININE 0.9 mg/dL (0.6-1.3); POTASSIUM 2.9 mmol/L (3.5-5.1)
[2021-03-12] MEDS: CEFEPIME 2 GM in IV D5W 100 ML IV SCH (17:49)
--- NOTE | 2021-03-12 19:04 | NUR ---
RN CLOSING NOTE PATIENT IN ROOM RESTING IN SEMI-FOWLERS POSITION. PATIENT IN NO SIGNS OF RESPIRATORY DISTRESS, PATIENT STILL ON T-PIECE WITH 8 LPM, 35% FI02 TOLERATING WELL. SAFETY MEASURES IMPLEMENTED, BED LOCKED IN LOWEST POSITION, SIDE RAILS UP X2, CALL LIGHT WITHIN REACH. PATIENT TACHYCARDIA NOTED. IV ACCESS MAINTAINED INTACT, SECURED AND FLUSHING WELL. POTASSIUM REPLACED 80 MEQ. NS RUNNING AT 20 ML/HR VIA RIGHT UPPER ARM PICC LINE. WILL ENDORSE CARE TO UPCOMING SHIFT.
--- NOTE | 2021-03-12 19:35 | NUR ---
RN OPENING NOTES: RECEIVED NON-VERBAL PT IN BED SLEEPING COMFORTABLY. PATIENT IN NO S/SX OF ACUTE DISTRESS AT THIS TIME. NO SOB NOTED. PATIENT'S BREATHING IS EVEN AND UNLABORED. PATIENT IS ON T-PIECE WITH 8L WITH 35% FI02 TOLERATING WELL; AMBU BAG AT BED SIDE ALARMS SET PER PROTOCOL AND AUDIBLE. VENT PLUGGED IN TO RED OUTLET. NO DISTRESS NOTED. PATIENT ON TELE MONITORING READING SINUS TACHY HR IS @120S AT THE TIME OF RECEIVED. PATIENT HAS G TUBE FLUSHING AND PATENT; SITE CLEAN DRY AND INTACT; NO RESIDUAL NOTED; CONNECTED TO FEEDING OF GLUCERNA @80CC/HR; TOLERATES WELL. NOTED IV SITE ON R UA MILDINE #18 AND R WRIST; BOTH PATENT, INTACT AND FLUSHING WELL; NO S/S OF INFECTION OR INFILTRATION. WITH IV FLUID RUNNING ORDERED. RENDON CATH IN PLACE,MODERATE YELLOW COLORED URINE OUTPUT NOTED. SAFETY MEASURES HAVE BEEN PROVIDED AND IMPLEMENTED. PATIENT BED ALARM IS ON. HEAD OF BED ELEVATED. BED IS LOCKED, IN LOWEST POSITION AND SIDE RAILS UP. CALL LIGHT WITHIN REACH OF THE PATIENT. APPLICABLE ISOLATION PRECAUTIONS IN PLACE. WILL CONTINUE TO MONITOR AND REASSESS FOR ANY CHANGES AND WILL CARRY OUT ANY ONGOING AND ACTIVE MD ORDER. Addendum: 03/13/21 at 0106 by CARMINE DONOHUE RN HR UPON RECEIVED WAS 104BPM
[2021-03-12 20:00] VITALS: BP 135/82
[2021-03-12] MEDS: INSULIN GLARGINE, 100 UNIT/ML CARTRIDGE SQ SCH (21:21)
--- NOTE | 2021-03-12 21:23 | NUR ---
RN NOTES ACCU CHECK DONE; 198MG/DL;LANTUS GIVEN SCHEDULED . CASH APPLICATIONS ANALYST MADE AWARE. WILL CONTINUE TO MONITOR AND ASSESS THROUGHOUT THE SHIFT.
--- NOTE | 2021-03-12 23:00 | NUR ---
RN NOTES NO CHANGE IN PATIENT CONDITION AT THIS TIME PATIENT VITALS STABLE, NO SIGNS OF ACUTE RESPIRATORY DISTRESS. MACHINE CLOTH EXAMINER MADE AWARE. WILL CONTINUE TO MONITOR AND REASSESS FOR ANY CHANGES THROUGHOUT THE SHIFT.
[2021-03-13] VITALS: BP 160/87
[2021-03-13] MEDS: CLONIDINE HCL 0.1 MG TABLET GT SCH ×4 (00:05→17:10)
[2021-03-13] MEDS: BLOOD SUGAR DIAGNOSTIC 1 EACH STRIP IN SCH ×4 (00:08→17:10)
[2021-03-13] MEDS: INSULIN REGULAR, HUMAN 100 UNIT/ML 3 ML VIAL SQ PRN ×3 (00:13→12:11)
[2021-03-13] MEDS: ALBUTEROL FS 2.5 MG/0.5 ML VIAL.NEB NEB SCH ×4 (01:30→19:19)
[2021-03-13 04:00] VITALS: BP 156/82
--- NOTE | 2021-03-13 04:01 | NUR ---
RN NOTES PATIENT REMAINS IN NO ACUTE RESPIRATORY DISTRESS AT THIS TIME, NO CHANGES TO CONDITION/STATUS. CHIEF STEWARD/STEWARDESS WELL AWARE. WILL CONTINUE TO MONITOR AND REASSESS FOR ANY CHANGES THROUGHOUT THE SHIFT
[2021-03-13] MEDS: CEFEPIME 2 GM in IV D5W 100 ML IV SCH (04:10)
[2021-03-13 06:35] LABS: BASOPHILS # (AUTO) 0.1 /CMM (0.0-0.2); BASOPHILS % (AUTO) 1.2 % (0.0-2.0); HEMATOCRIT 30 % (39-51); HEMOGLOBIN 9.8 g/dL (13.5-17.5); LYMPHOCYTES # (AUTO) 1.7 /CMM (0.8-4.8); LYMPHOCYTES % (AUTO) 24.5 % (20.0-44.0); MEAN CORPUSCULAR HGB CONC 33 g/dl (31.0-36.0); MEAN CORPUSCULAR VOLUME 80 fL (80-96); MONOCYTES # (AUTO) 0.7 /CMM (0.1-1.30); MONOCYTES % (AUTO) 10.2 % (2.0-12.0); NEUTROPHILS # (AUTO) 4.2 /CMM (1.8-8.9); NEUTROPHILS % (AUTO) 60.1 % (43.0-81.0); PLATELET COUNT (AUTO) 241 /CMM (150-450); RED BLOOD CELL COUNT(AUTO) 3.74 MIL/uL (4.5-6.0); WHITE BLOOD COUNT (AUTO) 6.9 K/uL (4.3-11.0)
[2021-03-13] MEDS: ACETYLCYSTEINE 10% SOLN 400 MG/4 ML VIAL NEB SCH ×2 (07:18→12:41)
--- NOTE | 2021-03-13 07:25 | NUR ---
RN OPENING NOTE PATIENT RECEIVED IN ROOM RESTING IN SEMI-FOWLERS POSITION. PATIENT IN NO SIGNS OF RESPIRATORY DISTRESS, PATIENT STILL ON T-PIECE WITH 8 LPM, 35% FI02 TOLERATING WELL. SAFETY MEASURES IMPLEMENTED, BED LOCKED IN LOWEST POSITION, SIDE RAILS UP X2, CALL LIGHT WITHIN REACH. IV ACCESS MAINTAINED INTACT, SECURED AND FLUSHING WELL. NS RUNNING AT 20 ML/HR VIA RIGHT UPPER ARM MID LINE. WILL CONTINUE TO MONITOR AND PROVIDE CARE THROUGHOUT SHIFT.
[2021-03-13 07:27] LABS: CALCIUM, SERUM 8.3 mg/dL (8.5-10.1); CREATININE 0.8 mg/dL (0.6-1.3); PHOSPHORUS 2.5 mg/dL (2.5-4.9)
[2021-03-13 08:00] VITALS: BP 137/74
[2021-03-13] MEDS: PANTOPRAZOLE 40 MG/PACK PACK GT SCH (08:27)
[2021-03-13] MEDS: SUCRALFATE 1 G/10 ML UDC GT SCH ×4 (08:28→20:58)
[2021-03-13] MEDS: FERROUS SULFATE (325 MG) 325 MG/TAB TABLET GT SCH ×2 (08:28→17:09)
[2021-03-13] MEDS: ASPIRIN 81 MG TAB.CHEW GT SCH (08:28)
[2021-03-13] MEDS: LEVETIRACETAM SOL (5 ML) 100 MG/ML UDC GT SCH ×2 (08:28→20:59)
[2021-03-13] MEDS: METOPROLOL TARTRATE 50 MG TABLET GT SCH ×2 (08:29→20:59)
[2021-03-13] MEDS: AMLODIPINE BESYLATE 10 MG TABLET GT SCH (08:30)
[2021-03-13] MEDS: ZINC SULFATE 220 MG CAPSULE GT SCH (08:30)
[2021-03-13] MEDS: VANCOMYCIN 0.75 GM in IV D5W 250 ML IV SCH (08:32)
[2021-03-13] MEDS: PROSOURCE / PROSTAT (PYXIS) 30 ML UDC GT SCH ×3 (08:45→17:10)
[2021-03-13] MEDS: INSULIN ASPART/LISPRO 100 UNIT/ML CARTRIDGE SQ SCH ×2 (08:55→17:12)
[2021-03-13] MEDS: ENOXAPARIN SODIUM 30 MG/0.3 ML DISP.SYRIN SQ SCH (08:55)
[2021-03-13] MEDS ORDERED: POTASSIUM CHLORIDE 20 MEQ TAB.PRT.SR PO SCH (10:30)
[2021-03-13] MEDS: POTASSIUM CHLORIDE 20 MEQ POWDER PACKET GT SCH ×3 (10:55→12:44)
[2021-03-13 11:46] LABS: BAND % (MANUAL) 1 % (0.0-5.0); EOSINOPHILS % (MANUAL) 2 % (0-4); LYMPHOCYTES % (MANUAL) 29 % (16-48); MONOCYTES % (MANUAL) 9 % (0-11.0); NEUTROPHILS % (MANUAL) 59 (42-76)
[2021-03-13 12:00] VITALS: BP 156/83
[2021-03-13] MEDS: GLUCERNA 1.2 1,000 ML BOTTLE GT SCH (12:04)
[2021-03-13] MEDS: CEFTRIAXONE 1 G in IV D5W 50 ML IV SCH (15:18)
[2021-03-13] MEDS: AMPICILLIN 1 GM in IV NS 0.9% 50 ML IV SCH (17:11)
[2021-03-13 18:00] VITALS: BP 160/85
--- NOTE | 2021-03-13 18:54 | NUR ---
RN CLOSING NOTE PATIENT IN ROOM RESTING IN SEMI-FOWLERS POSITION. PATIENT IN NO SIGNS OF RESPIRATORY DISTRESS, PATIENT STILL ON T-PIECE WITH 8 LPM, 35% FI02 TOLERATING WELL. SAFETY MEASURES IMPLEMENTED, BED LOCKED IN LOWEST POSITION, SIDE RAILS UP X2, CALL LIGHT WITHIN REACH. IV ACCESS MAINTAINED INTACT, SECURED AND FLUSHING WELL. NS RUNNING AT 20 ML/HR VIA RIGHT UPPER ARM MID LINE. PATIENT TO BE NPO AFTER MIDNIGHT TONIGHT FOR CHOLECYSTECTOMY DRAIN IN THE AM. CONSENT OBTAINED AND PLACED IN CHART FOR PROCEDURE. WILL ENDORSE CONTINUATION OF CARE TO UPCOMING SHIFT.
--- NOTE | 2021-03-13 19:30 | NUR ---
RN OPENING NOTES: RECEIVED NON-VERBAL PT IN BED SLEEPING COMFORTABLY. PATIENT IN NO S/SX OF ACUTE DISTRESS AT THIS TIME. NO SOB NOTED. PATIENT'S BREATHING IS EVEN AND UNLABORED. PATIENT IS ON T-PIECE WITH 8L WITH 35% FI02 TOLERATING WELL; AMBU BAG AT BED SIDE ALARMS SET PER PROTOCOL AND AUDIBLE. VENT PLUGGED IN TO RED OUTLET. NO DISTRESS NOTED. PATIENT ON TELE MONITORING READING SINUS RHYTHM HR IS @98BPM AT THE TIME OF RECEIVED. PATIENT HAS G TUBE FLUSHING AND PATENT; SITE CLEAN DRY AND INTACT; NO RESIDUAL NOTED; CONNECTED TO FEEDING OF GLUCERNA @80CC/HR; TOLERATES WELL. NOTED IV SITE ON R UA MILDINE #18 AND R WRIST; BOTH PATENT, INTACT AND FLUSHING WELL; NO S/S OF INFECTION OR INFILTRATION. WITH IV FLUID RUNNING ORDERED. RENDON CATH IN PLACE,MODERATE YELLOW COLORED URINE OUTPUT NOTED. PER ENDORSEMENT PT WILL HAVE MORNING PROCEDURE SERENA ( CHOLECYSTECTOMY DRAIN; CONSENT AND OTHER PAPERWORK SECURED IN THE CHART), HEALTH AID MADE AWARE. SAFETY MEASURES HAVE BEEN PROVIDED AND IMPLEMENTED. PATIENT BED ALARM IS ON. HEAD OF BED ELEVATED. BED IS LOCKED, IN LOWEST POSITION AND SIDE RAILS UP. CALL LIGHT WITHIN REACH OF THE PATIENT. APPLICABLE ISOLATION PRECAUTIONS IN PLACE. WILL CONTINUE TO MONITOR AND REASSESS FOR ANY CHANGES AND WILL CARRY OUT ANY ONGOING AND ACTIVE MD ORDER.
[2021-03-13 20:00] VITALS: BP 154/78
[2021-03-13] MEDS: INSULIN GLARGINE, 100 UNIT/ML CARTRIDGE SQ SCH (21:34)
[2021-03-13] MEDS: IV NS 0.9% 1,000 ML IV PRN (22:00)
--- NOTE | 2021-03-13 22:22 | NUR ---
RN NOTES PATIENT'S FAMILY CALLED TO GET UPDATES. SPOKE WITH ([phone] ), PROVIDED GENERAL UPDATES ABOUT PT'S CONDITION. ASSURED PATIENT RELATIVE THAT WILL KEEP THEM POSTED FOR ANY SUDDEN CHANGES TO PT'S CONDITION. FAMILY VERY THANKFUL ABOUT CARE BEING PROVIDED TO THE PATIENT. RN ACKNOWLEDGED. PROMOTIONS PRODUCER MADE AWARE.
--- NOTE | 2021-03-13 23:00 | NUR ---
RN NOTES NO CHANGE IN PATIENT CONDITION AT THIS TIME PATIENT VITALS STABLE, NO SIGNS OF ACUTE RESPIRATORY DISTRESS.PM PATIENT CARE DONE. FIRE BATTALION CHIEF MADE AWARE. WILL CONTINUE TO MONITOR AND REASSESS FOR ANY CHANGES THROUGHOUT THE SHIFT.
[2021-03-14] MEDS: CLONIDINE HCL 0.1 MG TABLET GT SCH ×4 (00:27→17:21)
[2021-03-14] MEDS: AMPICILLIN 1 GM in IV NS 0.9% 50 ML IV SCH ×4 (00:27→17:53)
[2021-03-14] MEDS: BLOOD SUGAR DIAGNOSTIC 1 EACH STRIP IN SCH ×4 (00:36→17:53)
[2021-03-14] MEDS: INSULIN REGULAR, HUMAN 100 UNIT/ML 3 ML VIAL SQ PRN ×2 (00:37→06:12)
[2021-03-14] MEDS: ALBUTEROL FS 2.5 MG/0.5 ML VIAL.NEB NEB SCH ×4 (01:01→19:32)
[2021-03-14] MEDS: ACETYLCYSTEINE 10% SOLN 400 MG/4 ML VIAL NEB SCH ×3 (01:01→15:02)
[2021-03-14 04:00] VITALS: BP 156/85
--- NOTE | 2021-03-14 04:00 | NUR ---
RN NOTES PATIENT REMAINS IN NO ACUTE RESPIRATORY DISTRESS AT THIS TIME, NO CHANGES TO CONDITION/STATUS.PT ON NPO POST MIDNIGHT,; IN PREPARATION FOR AM PROCEDURE. AM PATIENT CARE DONE. BUTTON DECORATING MACHINE OPERATOR WELL AWARE. WILL CONTINUE TO MONITOR AND REASSESS FOR ANY CHANGES THROUGHOUT THE SHIFT
--- NOTE | 2021-03-14 06:00 | NUR ---
RN NOTES ACCU CHECK DONE; 136MG/DL; NO INSULIN COVERAGE GIVEN; PT IS ON NPO POST MIDNIGHT; WILL HAVE PROCEDURE TODAY (AM). ASSOCIATE PROFESSOR OF KINESIOLOGY MADE AWARE. WILL CONTINUE TO MONITOR AND ASSESS UNTIL END OF THE SHIFT.
--- NOTE | 2021-03-14 06:19 | NUR ---
RN NOTES RECEIVED CALL FROM RADIOLOGY DEPT; SPOKE WITH CUBA; VERIFIED & CONFIRMED THAT PT WILL BE UNDERGOING PROCEDURE TODAY AROUND 0830AM CT PERCUTANEOUS ABSCESS MONALISA. SHE CONFIRMED IF CONSENTS HAS BEEN SIGN FOR THE PROCEDURE, NPO POST MIDNIGHT AND LABS TAKEN SCHEDULED. RN ACKNOWLEDGED THAT ALL OF THESE HAD BEEN SECURED AND PROCESSED. SHE CONFIRMED TENTATIVE TIME WOULD PROBABLY 0830. RN ACKNOWLEDGED. WHEEL ROLLER MADE AWARE.
[2021-03-14 06:48] LABS: BASOPHILS # (AUTO) 0.1 /CMM (0.0-0.2); BASOPHILS % (AUTO) 0.7 % (0.0-2.0); HEMATOCRIT 30 % (39-51); HEMOGLOBIN 9.7 g/dL (13.5-17.5); LYMPHOCYTES # (AUTO) 1.8 /CMM (0.8-4.8); LYMPHOCYTES % (AUTO) 20.6 % (20.0-44.0); MEAN CORPUSCULAR HGB CONC 33 g/dl (31.0-36.0); MEAN CORPUSCULAR VOLUME 79 fL (80-96); MONOCYTES # (AUTO) 0.7 /CMM (0.1-1.30); MONOCYTES % (AUTO) 7.8 % (2.0-12.0); NEUTROPHILS # (AUTO) 5.6 /CMM (1.8-8.9); NEUTROPHILS % (AUTO) 65.9 % (43.0-81.0); PLATELET COUNT (AUTO) 291 /CMM (150-450); RED BLOOD CELL COUNT(AUTO) 3.73 MIL/uL (4.5-6.0); WHITE BLOOD COUNT (AUTO) 8.6 K/uL (4.3-11.0)
--- NOTE | 2021-03-14 06:52 | NUR ---
RN CLOSING NOTE: PATIENT REMAINS IN ROOM IN NO SIGNS OF RESPIRATORY DISTRESS, PATIENT STILL ON T-PIECE WITH 8L OF O2 35% OF FI02;TOLERATING WELL SATURATING @ 98% SP02 AT THE END OF SHIFT. SAFETY MEASURES IMPLEMENTED, BED IN LOWEST POSITION, LOCKED, SIDE RAILS UP, CALL LIGHT WITHIN REACH. ALL NEEDS AND ORDERS ADDRESSED DURING THE SHIFT. IV ACCESS MAINTAINED INTACT, SECURED AND FLUSHING WELL. ALL DUE MEDS GIVEN ORDERED & SCHEDULED ; PATIENT TOLERATED WELL. PATIENT KEPT CLEAN AND COMFORTABLE WITHIN THE SHIFT. PATIENT ENDORSED TO INCOMING SHIFT RN REGARDING PT'S PROCEDURE IN THE MORNING, CONSENT SECURED AND PLACED IN THE CHART. PT WAS ENDORSED WITH STABLE VITAL SIGN AND FOR CONTINUITY OF CARE. AM SHIFT TIME MOTION ANALYST MADE AWARE TOO.
--- NOTE | 2021-03-14 07:30 | NUR ---
MS RN OPENING NOTE RECEIVED PATIENT IN BED, RESTING, IN SEMI-FOWLERS POSITION. PATIENT IS NPO FOR CT PROCEDURE. NO SIGNS OF RESPIRATORY DISTRESS, NO SIGNS OF PAIN. PATIENT ON T-PIECE WITH 8 LPM, 35% FI02 - TOLERATING WELL. IV ACCESS MAINTAINED INTACT, SECURED AND FLUSHING WELL. NS RUNNING AT 20 ML/HR VIA RIGHT UPPER ARM MID LINE.SAFETY MEASURES IMPLEMENTED, BED LOCKED AND IN LOWEST POSITION, SIDE RAILS X2, CALL LIGHT WITHIN REACH. WILL CONTINUE TO MONITOR.
[2021-03-14 07:39] LABS: CALCIUM, SERUM 8.8 mg/dL (8.5-10.1); CREATININE 0.7 mg/dL (0.6-1.3); MAGNESIUM 2.2 mg/dL (1.8-2.4)
[2021-03-14 08:00] VITALS: BP 126/70
[2021-03-14] MEDS: PROSOURCE / PROSTAT (PYXIS) 30 ML UDC GT SCH ×3 (08:13→17:00)
[2021-03-14] MEDS: LEVETIRACETAM SOL (5 ML) 100 MG/ML UDC GT SCH ×2 (08:13→21:29)
[2021-03-14] MEDS: PANTOPRAZOLE 40 MG/PACK PACK GT SCH (08:13)
[2021-03-14] MEDS: SUCRALFATE 1 G/10 ML UDC GT SCH ×4 (08:13→21:29)
[2021-03-14] MEDS: FERROUS SULFATE (325 MG) 325 MG/TAB TABLET GT SCH ×2 (08:13→17:21)
[2021-03-14] MEDS: ZINC SULFATE 220 MG CAPSULE GT SCH (08:13)
[2021-03-14] MEDS: ASPIRIN 81 MG TAB.CHEW GT SCH (08:13)
[2021-03-14] MEDS: AMLODIPINE BESYLATE 10 MG TABLET GT SCH (08:15)
[2021-03-14] MEDS: METOPROLOL TARTRATE 50 MG TABLET GT SCH ×2 (08:16→21:32)
[2021-03-14] MEDS: INSULIN ASPART/LISPRO 100 UNIT/ML CARTRIDGE SQ SCH ×2 (08:24→17:00)
[2021-03-14] MEDS: ENOXAPARIN SODIUM 30 MG/0.3 ML DISP.SYRIN SQ SCH (08:24)
[2021-03-14] MEDS: POTASSIUM CHLORIDE 20 MEQ POWDER PACKET GT SCH ×3 (10:09→10:40)
[2021-03-14 10:34] LABS: BAND % (MANUAL) 5 % (0.0-5.0); EOSINOPHILS % (MANUAL) 5 % (0-4); LYMPHOCYTES % (MANUAL) 19 % (16-48); MONOCYTES % (MANUAL) 8 % (0-11.0); NEUTROPHILS % (MANUAL) 63 (42-76)
[2021-03-14 12:00] VITALS: BP 146/79
--- NOTE | 2021-03-14 12:10 | NUR ---
MS RN NOTE ACCIDENTALLY DROPPED CLONIDINE ON THE GROUND. PULLED ANOTHER. CRUSHED AND GIVEN TO PATIENT.
--- NOTE | 2021-03-14 12:34 | NUR ---
CT DRAINAGE ABSCESS PROCEDURE IS ON HOLD, PER DR. DOMINGUEZ.
[2021-03-14] MEDS: CEFTRIAXONE 1 G in IV D5W 50 ML IV SCH (15:15)
[2021-03-14 16:00] VITALS: BP 142/81
--- NOTE | 2021-03-14 18:33 | NUR ---
RN CLOSING NOTE: PATIENT IS CURRENTLY LYING IN BED, RESTING. NON-VERBAL, OPENS EYES OCCASIONALLY. NO SIGNS OF RESPIRATORY DISTRESS, NO SIGNS OF PAIN NOTED. PATIENT ON T-PIECE WITH 8L OF O2 35% OF FI02 - TOLERATING WELL SATURATING @ 98% SP02. IV ACCESS MAINTAINED INTACT - RUNNING NS @ 30ML/HR. SAFETY PRECAUTIONS IN PLACE. BED IN LOWEST AND LOCKED POSITION. SIDE RAILS X3. CALL LIGHT WITHIN REACH. WILL ENDORSE TO MOBILE PLANT OPERATORS NURSE FOR SELMA.
--- NOTE | 2021-03-14 19:30 | NUR ---
RN OPENING NOTES: RECEIVED NON-VERBAL (OCCASIONALLY OPENS HIS EYES) PT IN BED RESTING COMFORTABLY. PATIENT IN NO S/SX OF ACUTE DISTRESS AT THIS TIME. NO SOB NOTED. PATIENT'S BREATHING IS EVEN AND UNLABORED. PATIENT IS ON T-PIECE WITH 8L WITH 35% FI02 TOLERATING WELL; AMBU BAG AT BED SIDE ALARMS SET PER PROTOCOL AND AUDIBLE. NO DISTRESS NOTED. PATIENT ON TELE MONITORING READING SINUS TACHY HR IS @105BPM AT THE TIME OF RECEIVED. PATIENT HAS G TUBE FLUSHING AND PATENT; SITE CLEAN DRY AND INTACT; NO RESIDUAL NOTED; CLAMPED AT THIS TIME. PT CURRENT DIET IS NPO EXCEPT MEDS. NOTED IV SITE ON R UA MILDINE #18 AND R WRIST; BOTH PATENT, INTACT AND FLUSHING WELL; NO S/S OF INFECTION OR INFILTRATION. WITH IV FLUID RUNNING ORDERED. RENDON CATH IN PLACE,MODERATE YELLOW COLORED URINE OUTPUT NOTED. SAFETY MEASURES HAVE BEEN PROVIDED AND IMPLEMENTED. PATIENT BED ALARM IS ON. HEAD OF BED ELEVATED. BED IS LOCKED, IN LOWEST POSITION AND SIDE RAILS UP. CALL LIGHT WITHIN REACH OF THE PATIENT. APPLICABLE ISOLATION PRECAUTIONS IN PLACE. WILL CONTINUE TO MONITOR AND REASSESS FOR ANY CHANGES AND WILL CARRY OUT ANY ONGOING AND ACTIVE MD ORDER.
[2021-03-14] MEDS: INSULIN GLARGINE, 100 UNIT/ML CARTRIDGE SQ SCH (21:51)
--- NOTE | 2021-03-14 21:53 | NUR ---
RN NOTES ACCU CHECK DONE 195MG/DL; INSULIN LANTUS OF 42UN ON HOLD ; PT ON NPO; G TUBE FEEDING HAS BEEN ON HOLD TOO. INCOME TAX RETURN PREPARER MADE AWARE. WILL CONTINUE TO MONITOR AND ASSESS THROUGHOUT THE SHIFT.
[2021-03-14 22:00] VITALS: BP 158/84
--- NOTE | 2021-03-14 22:05 | NUR ---
RN NOTES COMMUNICATED WITH NOEL DE LA CRUZ, ADVISED THAT PT WAS SUPPOSEDLY TO CT PERCUATANEOUS ABSCESS DRAIN IN THE MORNING BUT WAS PUT ON HOLD, ADVISED ABOUT THE RESULT OF THE HID SCAN. ALSO ADVISED THAT PT IS STILL ON NPO EXCEPT MEDS AND G TUBE FEEDING HAS BEEN HELD AND RUNNING IVF IS NS @20ML/HR. ASKED IF HE WANTS TO RESUME FEEDING AND FOR ANY OTHER ORDERS. AWAITING RESPONSE. ROBERTO WINSLOW MADE AWARE. Addendum: 03/14/21 at 2241 by CARMINE DONOHUE RN NOEL DE LA CRUZ SAID KEEP IS, NO NEW ORDERS. ROBERTO WINSLOW MADE AWARE.
--- NOTE | 2021-03-14 23:00 | NUR ---
RN NOTES NO CHANGE IN PATIENT CONDITION AT THIS TIME PATIENT VITALS STABLE, NO SIGNS OF ACUTE RESPIRATORY DISTRESS. PM PATIENT CARE DONE. POWERHOUSE MECHANIC HELPER MADE AWARE. WILL CONTINUE TO MONITOR AND REASSESS FOR ANY CHANGES THROUGHOUT THE SHIFT.
[2021-03-15] VITALS: BP 166/79
[2021-03-15] MEDS: AMPICILLIN 1 GM in IV NS 0.9% 50 ML IV SCH ×4 (00:20→17:02)
[2021-03-15] MEDS: ACETAMINOPHEN 650 MG/20.3 ML UDC GT PRN (00:22)
[2021-03-15] MEDS: ACETYLCYSTEINE 10% SOLN 400 MG/4 ML VIAL NEB SCH ×3 (00:29→15:19)
[2021-03-15] MEDS: ALBUTEROL FS 2.5 MG/0.5 ML VIAL.NEB NEB SCH ×3 (00:30→15:19)
[2021-03-15] MEDS: BLOOD SUGAR DIAGNOSTIC 1 EACH STRIP IN SCH ×4 (00:34→17:04)
[2021-03-15] MEDS: CLONIDINE HCL 0.1 MG TABLET GT SCH ×4 (00:34→17:02)
[2021-03-15] MEDS: INSULIN REGULAR, HUMAN 100 UNIT/ML 3 ML VIAL SQ PRN ×4 (00:35→17:03)
--- NOTE | 2021-03-15 00:36 | NUR ---
RN NOTES ACCU CHECK DONE; 181MG/DL; NO INSULIN COVERAGE GIVEN; PT IS STILL ON NPO;TUBE FEEDING IS ON HOLD. COUNTY AGENT MADE AWARE. WILL CONTINUE TO MONITOR AND ASSESS UNTIL END OF THE SHIFT.
--- NOTE | 2021-03-15 00:38 | NUR ---
RN NOTES NOTED PT'S TEMP 99.2@0000. PRN MEDS GIVEN AND COOLING MEASURES PROVIDED. FULL TIME BABYSITTER MADE AWARE. WILL RE-EVALUATE AFTER 30 MINUTES- 1 HOUR. WILL CONTINUE TO MONITOR Addendum: 03/15/21 at 0246 by CARMINE DONOHUE RN @0100- PT'S TEMP IS NOW 97.2; WILL CONTINUE TO MONITOR AND ASSESS UNTIL THE END OF THE SHIFT FULL TIME BABYSITTER MADE AWARE.
--- NOTE | 2021-03-15 03:00 | NUR ---
RN NOTES PATIENT REMAINS IN NO ACUTE RESPIRATORY DISTRESS AT THIS TIME, NO CHANGES TO CONDITION/STATUS. AM PATIENT CARE DONE. WEBSPHERE COMMERCE CONSULTANT WELL AWARE. WILL CONTINUE TO MONITOR AND REASSESS FOR ANY CHANGES THROUGHOUT THE SHIFT
[2021-03-15 04:00] VITALS: BP 132/76
--- NOTE | 2021-03-15 05:33 | NUR ---
RN NOTES ACCU CHECK DONE; 182MG/DL; NO INSULIN COVERAGE GIVEN; PT IS STILL ON NPO;TUBE FEEDING IS ON HOLD. POULTRY SLAUGHTERER MADE AWARE. WILL CONTINUE TO MONITOR AND ASSESS UNTIL END OF THE SHIFT.
[2021-03-15 06:29] LABS: BASOPHILS # (AUTO) 0.1 /CMM (0.0-0.2); BASOPHILS % (AUTO) 1.1 % (0.0-2.0); EOSINOPHILS % (AUTO) 8.2 % (0.0-6.0); HEMATOCRIT 31 % (39-51); HEMOGLOBIN 10.1 g/dL (13.5-17.5); LYMPHOCYTES # (AUTO) 2.3 /CMM (0.8-4.8); LYMPHOCYTES % (AUTO) 25.3 % (20.0-44.0); MEAN CORPUSCULAR HGB CONC 33 g/dl (31.0-36.0); MEAN CORPUSCULAR VOLUME 80 fL (80-96); MONOCYTES # (AUTO) 0.8 /CMM (0.1-1.30); MONOCYTES % (AUTO) 8.7 % (2.0-12.0); NEUTROPHILS # (AUTO) 5.2 /CMM (1.8-8.9); NEUTROPHILS % (AUTO) 56.7 % (43.0-81.0); PLATELET COUNT (AUTO) 318 /CMM (150-450); RED BLOOD CELL COUNT(AUTO) 3.86 MIL/uL (4.5-6.0); WHITE BLOOD COUNT (AUTO) 9.2 K/uL (4.3-11.0)
[2021-03-15 06:46] LABS: CALCIUM, SERUM 8.1 mg/dL (8.5-10.1); CREATININE 0.8 mg/dL (0.6-1.3); MAGNESIUM 2.1 mg/dL (1.8-2.4); PHOSPHORUS 3.6 mg/dL (2.5-4.9); POTASSIUM 3.6 mmol/L (3.5-5.1)
[2021-03-15 06:59] LABS: ALBUMIN 2.1 g/dL (3.4-5.0); BILIRUBIN,DIRECT 0.1 mg/dL (0.0-0.2); BILIRUBIN,TOTAL 0.4 mg/dL (0.2-1.0); TOTAL PROTEIN, SERUM 6.6 g/dL (6.4-8.2)
[2021-03-15] MEDS: PANTOPRAZOLE 40 MG/PACK PACK GT SCH (07:40)
--- NOTE | 2021-03-15 07:52 | NUR ---
RN OPENING NOTE PATIENT IS CURRENTLY IN BED WITH HOB AT SEMI FOWLERS POSITION. PATIENT IS NONVERBAL WITH OPEN EYES. RENDON CATHETER IS IN PLACE. GTUBE IS IN PLACE WITH FEEDING HELD. SACRAL DTI NOTED. ANA MIDLINE IS PATENT AND INTACT. RWRIST#20 IS PATENT AND INTACT. BED IS LOCKED IN THE LOWEST POSITION, 3 GUARD RAILS RAISED, CALL LYNN WITHIN REACH, AND ALL HOSPITAL SAFETY PRECAUTIONS ARE BEING FOLLOWED. WILL CONTINUE TO MONITOR THROUGHOUT SHIFT.
[2021-03-15] MEDS: FERROUS SULFATE (325 MG) 325 MG/TAB TABLET GT SCH ×2 (08:09→16:59)
[2021-03-15] MEDS: ZINC SULFATE 220 MG CAPSULE GT SCH (08:09)
[2021-03-15] MEDS: SUCRALFATE 1 G/10 ML UDC GT SCH ×3 (08:09→16:59)
[2021-03-15] MEDS: ASPIRIN 81 MG TAB.CHEW GT SCH (08:09)
[2021-03-15] MEDS: LEVETIRACETAM SOL (5 ML) 100 MG/ML UDC GT SCH (08:09)
[2021-03-15] MEDS: PROSOURCE / PROSTAT (PYXIS) 30 ML UDC GT SCH ×3 (08:11→16:58)
[2021-03-15] MEDS: AMLODIPINE BESYLATE 10 MG TABLET GT SCH (08:14)
[2021-03-15] MEDS: METOPROLOL TARTRATE 50 MG TABLET GT SCH (08:14)
[2021-03-15] MEDS: INSULIN ASPART/LISPRO 100 UNIT/ML CARTRIDGE SQ SCH ×2 (09:00→16:56)
[2021-03-15 09:35] LABS: BAND % (MANUAL) 1 % (0.0-5.0); EOSINOPHILS % (MANUAL) 8 % (0-4); LYMPHOCYTES % (MANUAL) 28 % (16-48); MONOCYTES % (MANUAL) 7 % (0-11.0); MYELOCYTES % 1 % (0-0); NEUTROPHILS % (MANUAL) 55 (42-76)
[2021-03-15] MEDS: ENOXAPARIN SODIUM 30 MG/0.3 ML DISP.SYRIN SQ SCH (10:23)
--- NOTE | 2021-03-15 10:55 | NUR ---
RN NOTE SPOKE WITH JOYA MCNEILL ABOUT DISCONTINUING NPO EXCEPT MEDS STATUS. OKAY TO RESUME TUBE FEEDING.
[2021-03-15 12:00] VITALS: BP 146/84
[2021-03-15] MEDS: GLUCERNA 1.2 1,000 ML BOTTLE GT SCH (12:30)
[2021-03-15] MEDS ORDERED: ENOX30DI SQ (14:40)
[2021-03-15] MEDS ORDERED: ACET1OOV6 NEB (14:40)
[2021-03-15] MEDS ORDERED: ALBU2.5V13 NEB (14:40)
[2021-03-15] MEDS ORDERED: AMPI1VIA12 IV (14:45)
[2021-03-15] MEDS ORDERED: CEFT1FRO2 IV (14:46)
--- NOTE | 2021-03-15 15:38 | NUR ---
RN NOTE REPORT GIVEN TO GOLDY COOL. AWAITING AIRCRAFT INSPECTOR.
[2021-03-15] MEDS: CEFTRIAXONE 1 G in IV D5W 50 ML IV SCH (15:41)
[2021-03-15 17:02] VITALS: BP 138/75
--- NOTE | 2021-03-15 18:40 | NUR ---
RN CLOSING NOTE PATIENT IS CURRENTLY IN BED WITH HOB AT SEMI FOWLERS POSITION. PATIENT IS NONVERBAL WITH OPEN EYES. RENDON CATHETER IS IN PLACE. GTUBE IS IN PLACE. SACRAL DTI NOTED. ANA MIDLINE IS PATENT AND INTACT. RWRIST#20 IS PATENT AND INTACT. BED IS LOCKED IN THE LOWEST POSITION, 3 GUARD RAILS RAISED, CALL LYNN WITHIN REACH, AND ALL HOSPITAL SAFETY PRECAUTIONS ARE BEING FOLLOWED. PATIENT IS AWAITING DISCHARGE ARRIVAL. ALL DUE MEDS GIVEN AND PATIENT REMAINED STABLE THROUGHOUT SHIFT. WILL ENDORSE TO ACTIVITIES MANAGER FOR SELMA.
--- NOTE | 2021-03-15 18:47 | NUR ---
PATIENT IS STABLE AT TIME OF DISCHARGE. RT AND EMT GIVEN REPORT. PATIENT IS STABLE.
== END 2021-03-15 19:02 | DRG 720 ==
LOC: ER 06:49 → TELE1 09:28 → MEDSG1 03-13 08:02
PROVIDERS: ADMIT Nurse Practitioner Acute Care; ATTEND Registered Nurse
PROC: 02HV33Z Insertion of Infusion Device into Superior Vena Cava, Percutaneous Approach (ICD-10-PCS; principal; 2021-03-08)
DX: A41.81 Sepsis due to Enterococcus (principal); N17.0 Acute kidney failure with tubular necrosis; J96.20 Acute and chronic respiratory failure, unspecified whether with hypoxia or hypercapnia; R65.21 Severe sepsis with septic shock; G93.41 Metabolic encephalopathy; J90 Pleural effusion, not elsewhere classified; K80.00 Calculus of gallbladder with acute cholecystitis without obstruction; J18.9 Pneumonia, unspecified organism; A41.59 Other Gram-negative sepsis; K82.1 Hydrops of gallbladder; E27.8 Other specified disorders of adrenal gland; R53.2 Functional quadriplegia; Z93.0 Tracheostomy status; E86.9 Volume depletion, unspecified; G40.909 Epilepsy, unspecified, not intractable, without status epilepticus; E87.6 Hypokalemia; J96.21 Acute and chronic respiratory failure with hypoxia; N39.0 Urinary tract infection, site not specified; Z93.1 Gastrostomy status; R13.10 Dysphagia, unspecified; Y95 Nosocomial condition; Z79.82 Long term (current) use of aspirin; Z79.899 Other long term (current) drug therapy; E11.65 Type 2 diabetes mellitus with hyperglycemia; Z86.73 Personal history of transient ischemic attack (TIA), and cerebral infarction without residual deficits; Z79.4 Long term (current) use of insulin; Z79.51 Long term (current) use of inhaled steroids; Z74.01 Bed confinement status; E78.5 Hyperlipidemia, unspecified; E87.2 Acidosis; I10 Essential (primary) hypertension; J98.11 Atelectasis; M89.9 Disorder of bone, unspecified; N20.0 Calculus of kidney; R31.0 Gross hematuria; L89.156 Pressure-induced deep tissue damage of sacral region; L89.326 Pressure-induced deep tissue damage of left buttock; L89.316 Pressure-induced deep tissue damage of right buttock; R23.4 Changes in skin texture; T83.83XA Hemorrhage due to genitourinary prosthetic devices, implants and grafts, initial encounter; Y84.9 Medical procedure, unspecified as the cause of abnormal reaction of the patient, or of later complication, without mention of misadventure at the time of the procedure; Y92.129 Unspecified place in nursing home as the place of occurrence of the external cause
CPT/HCPCS: 31720; 36415; 36569; 71045-TC; 76700-TC; 78226; 80048-TC; 80053-TC; 80076-TC; 80202-TC; 81001; 82247-TC; 82248-TC; 82436-TC; 82962-TC; 83605-TC; 83735-TC; 84100-TC; 84132-TC; 84133-TC; 84300-TC; 84484-TC; 85025-TC; 85610-TC; 85730-TC; 86850-TC; 87040-TC; 87086-TC; 87186-TC; 94640-TC; 94760-TC; 94762-TC; 94799-TC; 99082-TC; A4623; A6403; A7526; A9537; C1751; C9113; G0378; J0290; J0692; J0696; J1650; J1815; J1953; J2185; J2270; J2543; J3370; J3475; J3480; J7030; J7040; J7050; J7060; U0003

== ENCOUNTER 2021-07-29 18:04 | Inpatient (IN) | payer MEDICAID ==
[~2021-07-29] VITALS: Ht 172.7 cm; Wt 69.4 kg
[2021-07-29] MEDS: IV NS 0.9% 1,000 ML IV SCH (01:58)
[~2021-07-29 18:04] MED LIST changes: +ACET1OOV6 NEB; +ALBU2.5V13 NEB; +AMIN887L GT; +AMPI1VIA26 IV; +CEFT1FRO2 IV; +CLON0.1T GT; -CLOT15CR35 TP; +ENOX30DI SQ; -ENOX40DI SQ; +FERR325T23 GT; +INSU100I26 SQ; +INSU100V39 SQ; +METO100T14 GT; +OM3/1CAP3 GT; -VALS320T2 GT; +ZINC220C6 PO; +[UNRECOGNIZED DRUG - CODE] GT
--- NOTE | 2021-07-29 18:11 | NUR ---
The patient is bibra39, from snf, sob 82% on RA, BS 124.Respiration labored at times, no cough noted. GT present. Briscoe cath present. Will continue to monitor the patient. .
--- NOTE | 2021-07-29 18:37 | NUR ---
THE PATIENT IS TAKEN TO CT
--- NOTE | 2021-07-29 18:45 | NUR ---
the patient is back from ct
--- NOTE | 2021-07-29 18:58 | NUR ---
urine collected and sent to the lab
[2021-07-29] MEDS ORDERED: ACET-868 GT ×2 (18:59→19:00)
[2021-07-29] MEDS ORDERED: ACET-2605 GT (18:59)
[2021-07-29] MEDS ORDERED: METF-440 GT (18:59)
[2021-07-29] MEDS ORDERED: ENOX30DI5 SQ (18:59)
[2021-07-29] MEDS ORDERED: CRAN500T3 GT (18:59)
[2021-07-29] MEDS ORDERED: PANT40SU2 GT (18:59)
[2021-07-29] MEDS ORDERED: ASCO-352 GT (19:00)
[2021-07-29] MEDS ORDERED: METO25TA20 GT (19:00)
[2021-07-29] MEDS ORDERED: AMIN30LI2 GT (19:00)
[2021-07-29] MEDS ORDERED: CHLO473M5 MM (19:00)
[2021-07-29] MEDS ORDERED: POLY17PO4 GT (19:00)
[2021-07-29] MEDS ORDERED: GLYC2TAB21 GT (19:00)
[2021-07-29] MEDS ORDERED: [UNRECOGNIZED DRUG - OTHER] HHN (19:00)
--- NOTE | 2021-07-29 19:03 | NUR ---
MOVE SHEET SUBMITTED.
[2021-07-29 19:15] LABS: BASOPHILS # (AUTO) 0.2 K/uL (0.0-0.2); HEMATOCRIT 34 % (39-51); HEMOGLOBIN 10.9 g/dL (13.5-17.5); LYMPHOCYTES # (AUTO) 2.8 K/uL (0.8-4.8); LYMPHOCYTES % (AUTO) 13.2 % (20.0-44.0); MEAN CORPUSCULAR HGB CONC 32 g/dl (31.0-36.0); MEAN CORPUSCULAR VOLUME 79 fL (80-96); MONOCYTES # (AUTO) 1.1 K/uL (0.1-1.30); MONOCYTES % (AUTO) 5.3 % (2.0-12.0); NEUTROPHILS # (AUTO) 10.5 K/uL (1.8-8.9); NEUTROPHILS % (AUTO) 49.8 % (43.0-81.0); PLATELET COUNT (AUTO) 280 K/uL (150-450); RED BLOOD CELL COUNT(AUTO) 4.37 MIL/uL (4.5-6.0); WHITE BLOOD COUNT (AUTO) 21.1 K/uL (4.3-11.0)
[2021-07-29 19:17] LABS: EOSINOPHILS % (AUTO) 30.7 % (0.0-6.0)
[2021-07-29 19:26] LABS: CALCIUM, SERUM 9.4 mg/dL (8.5-10.1); CARBON DIOXIDE 29 mmol/L (21-32); CHLORIDE 105 mmol/L (98-107); CREATININE 1.3 mg/dL (0.6-1.3); GLUCOSE 108 mg/dL (74-106); POTASSIUM 3.9 mmol/L (3.5-5.1); SODIUM SERUM 144 mmol/L (136-145); UREA NITROGEN, BLOOD 35 mg/dL (7-18)
--- NOTE | 2021-07-29 19:30 | NUR ---
covid swab sent to lab
[2021-07-29 19:33] LABS: ALANINE AMINOTRANSFERASE 16 U/L (12-78); ALBUMIN 3.2 g/dL (3.4-5.0); ALKALINE PHOSPHATASE 75 U/L (46-116); ASPARTATE AMINOTRANSFERASE 12 U/L (15-37); BILIRUBIN,DIRECT 0.1 mg/dL (0.0-0.2); BILIRUBIN,TOTAL 0.4 mg/dL (0.2-1.0); TOTAL PROTEIN, SERUM 7.6 g/dL (6.4-8.2)
[2021-07-29 19:49] LABS: BILIRUBIN,URINE Negative (NEGATIVE); COLOR,URINE YELLOW (YELLOW); LEUKOCYTE ESTERASE ,URINE Moderate (NEGATIVE); NITRITE, URINE Negative (NEGATIVE); PROTEIN,URINE 100 mg/dl (NEGATIVE); UGLUCOSE Negative (NEGATIVE); UROBILINOGEN,URINE 0.2 EU/dL (0.2)
[2021-07-29 19:54] LABS: BACTERIA,URINE Many /HPF (None Seen); RBC,URINE 21-50 /HPF (0-2); SQUAMOUS EPITHELIAL CELL,UR Few /HPF (None Seen)
[2021-07-29 19:55] LABS: CALCIUM OXALATE CRYSTALS,UR Moderate /HPF (None Seen)
[2021-07-29 20:03] LABS: BAND % (MANUAL) 1 % (0.0-5.0); EOSINOPHILS % (MANUAL) 27 % (0-4); LYMPHOCYTES % (MANUAL) 12 % (16-48); MONOCYTES % (MANUAL) 3 % (0-11.0); NEUTROPHILS % (MANUAL) 57 (42-76)
[2021-07-29] MEDS ORDERED: CEFTRIAXONE 1GM BAG (ER ONLY) 50 ML IV ONE ×2 (20:30→20:36)
[2021-07-29] MEDS ORDERED: IV NS 0.9% 1,000 ML BAG IV ONE (20:30)
[2021-07-29 20:45] LABS: ABG BASE EXCESS 5.7 mmol/L; ABG OXYGEN SATURATION 97.7 % (92.0-98.5); ABG PCO2 40.5 mmHg (35.0-45.0); ABG PH 7.482 (7.350-7.450); ABG PO2 117.5 mmHg (75.0-100.0); AaDO2 34.4 mmHg; COHb 0.3 % (0.5-1.5); MetHb 0.3 % (0.0-1.5); O2Hb 97.1 % (94.0-97.0); SITE, ABG Right Radial
--- NOTE | 2021-07-29 20:58 | NUR ---
GAVE REPORT TO GOLDY PLATT FOR SELMA
[2021-07-29 21:10] VITALS: BP 150/82
[2021-07-29] MEDS ORDERED: GLUCERNA 1.2 1,000 ML BOTTLE GT SCH (22:00)
[2021-07-29] MEDS ORDERED: Z GUARD REMEDY 2 OZ OINT TP PRN (22:00)
[2021-07-29] MEDS ORDERED: ERGOCALCIFEROL (VITAMIN D 2) 50,000 UNIT CAPSULE GT SCH (22:00)
[2021-07-29] MEDS ORDERED: DEXTROSE 50%-WATER 50 ML DISP.SYRIN IV PRN (22:00)
[2021-07-29] MEDS ORDERED: MAGNESIUM HYDROXIDE 30 ML UDC PO PRN (22:00)
[2021-07-29] MEDS ORDERED: ZOLPIDEM TARTRATE 5 MG TABLET PO PRN (22:00)
[2021-07-29] MEDS ORDERED: ONDANSETRON HCL/PF 4 MG/2 ML VIAL IVP PRN (22:00)
[2021-07-29] MEDS ORDERED: MAG HYDROX/AL HYDROX/SIMETH 30 ML UDC PO PRN (22:00)
[2021-07-29] MEDS ORDERED: Medication Not On Formulary EA (Ipratropium/Albuterol Sulfate (Duoneb 2.5-0.5 Mg/3 Ml So IH PRN ×2 (22:00)
[2021-07-29] MEDS ORDERED: IPRATROPIUM NEB FS 0.5 MG/2.5 ML AMPUL.NEB IH PRN ×2 (22:30)
[2021-07-29] MEDS ORDERED: ALBUTEROL FS 2.5 MG/0.5 ML VIAL.NEB NEB PRN ×2 (22:30)
--- NOTE | 2021-07-29 22:54 | NUR ---
RN ADMITTING NOTES @2109 REC'D PT FROM ED. PT ON 2L OF O2 VIA TPIECE. PT HAS TRACH NOTED. NO SOB NO RESP DISTRESS. O2 SAT 100% AT THIS TIME. PT ON TELE MONITOR SET UP PRESENTS WITH SINUS TACH HR OF 101. PT STILL CONT IV BOLUS FROM ED, IV SITE NOTED RIGHT HAND #20 FLUSHED.IVF INFUSING WELL. PT HAS GTUBE, AUSCULTATED FOR PLACEMENT, RESIDUAL OF 5CC NOTED, GASTRIC CONTENTS RETURNED, FLUSHED. PT HAS GENERALIZED RASH NOTED ALL OVER BODY, AND OLD SACRAL WOUND NOTED. PT TO BE FOR WOUND CONSULT. SAFETY MEASURES IN PLACE. ISO PRECAUTION IN PLACE R/O COVID. HOB ELEVATED SIDE RAILS UP X2 BED LOCKED IN LOWEST POSITION BED ALARM ON. WILL CONT TO MONITOR
[2021-07-29] MEDS: INSULIN GLARGINE, 100 UNIT/ML CARTRIDGE SQ SCH (23:50)
[2021-07-30] VITALS (8 sets, daily range): BP systolic 100–185; BP diastolic 65–96
[2021-07-30] MEDS: BLOOD SUGAR DIAGNOSTIC 1 EACH STRIP IN SCH ×5 (00:04→23:37)
[2021-07-30] MEDS: INSULIN REGULAR, HUMAN 100 UNIT/ML 3 ML VIAL SQ PRN ×4 (00:06→17:17)
[2021-07-30] MEDS: CLONIDINE HCL 0.1 MG TABLET GT PRN ×2 (00:55→19:38)
--- NOTE | 2021-07-30 01:39 | NUR ---
RN NOTE: DAUGHTER JAMES GAVE UPDATE, PHONE # [phone]
[2021-07-30] MEDS: IV NS 0.9% 1,000 ML IV SCH ×3 (02:00→12:33)
[2021-07-30 06:03] LABS: BASOPHILS # (AUTO) 0.1 K/uL (0.0-0.2); BASOPHILS % (AUTO) 0.7 % (0.0-2.0); HEMATOCRIT 31 % (39-51); HEMOGLOBIN 9.8 g/dL (13.5-17.5); LYMPHOCYTES # (AUTO) 2.4 K/uL (0.8-4.8); LYMPHOCYTES % (AUTO) 14.6 % (20.0-44.0); MEAN CORPUSCULAR HGB CONC 31 g/dl (31.0-36.0); MEAN CORPUSCULAR VOLUME 80 fL (80-96); MONOCYTES % (AUTO) 5.8 % (2.0-12.0); NEUTROPHILS # (AUTO) 7.8 K/uL (1.8-8.9); NEUTROPHILS % (AUTO) 46.4 % (43.0-81.0); PLATELET COUNT (AUTO) 231 K/uL (150-450); RED BLOOD CELL COUNT(AUTO) 3.89 MIL/uL (4.5-6.0); WHITE BLOOD COUNT (AUTO) 16.7 K/uL (4.3-11.0)
[2021-07-30 06:53] LABS: EOSINOPHILS % (AUTO) 32.5 % (0.0-6.0)
[2021-07-30] MEDS ORDERED: ACETAMINOPHEN 650 MG/20.3 ML UDC GT PRN (07:00)
--- NOTE | 2021-07-30 07:28 | NUR ---
RN CLOSING NOTE NO CHANGE IN PT CONDITION, ORAL CARE T/R DONE Q2H. BED BATH DONE. PT SUCTIONED ORAL AND VIA TRACH. IVF FLUIDS RUNNING ORDERED. PT IS STABLE AT THIS TIME. SAFETY MEASURES IN PLACE. HOB ELEVATED. SIDE RAILS X2 BED LOCKED IN LOWEST POSITION. WITH BED ALARM ON. CALL LIGHT WITHIN REACH. NO S/S OF PAIN. ALL NEEDS ATTENDED AT THIS TIME. WILL ENDORSE TO DAY SHIFT FOR CONT OF CARE
[2021-07-30 07:50] LABS: CALCIUM, SERUM 8.3 mg/dL (8.5-10.1); CREATININE 1.1 mg/dL (0.6-1.3); PHOSPHORUS 3.8 mg/dL (2.5-4.9); POTASSIUM 3.5 mmol/L (3.5-5.1)
[2021-07-30] MEDS: ASCORBIC ACID 500 MG TABLET GT SCH ×2 (08:25→16:19)
[2021-07-30] MEDS: PANTOPRAZOLE 40 MG/PACK PACK GT SCH ×2 (08:25→16:19)
[2021-07-30] MEDS: ASPIRIN 81 MG TAB.CHEW GT SCH (08:25)
[2021-07-30] MEDS: GLYCOPYRROLATE 1 MG TABLET GT SCH ×3 (08:25→16:18)
[2021-07-30] MEDS: METFORMIN 500 MG TABLET GT SCH ×2 (08:25→21:54)
[2021-07-30] MEDS: POLYETHYLENE GLYCOL 3350 17 GM POWD.PACK GT SCH ×2 (08:26→16:20)
[2021-07-30] MEDS: FERROUS SULFATE (325 MG) 325 MG/TAB TABLET GT SCH ×2 (08:26→16:19)
[2021-07-30] MEDS: SUCRALFATE 1 G/10 ML UDC GT SCH ×4 (08:26→21:55)
[2021-07-30] MEDS: FIXODENT 1 EA TUBE MM SCH ×2 (08:26→16:20)
[2021-07-30] MEDS: AMLODIPINE BESYLATE 10 MG TABLET GT SCH (08:28)
[2021-07-30] MEDS: ENOXAPARIN SODIUM 30 MG/0.3 ML DISP.SYRIN SQ SCH (08:29)
[2021-07-30] MEDS: LEVETIRACETAM SOL (5 ML) 100 MG/ML UDC GT SCH ×2 (08:40→21:54)
[2021-07-30] MEDS: METOPROLOL TARTRATE 25 MG TABLET GT SCH ×4 (08:42→21:55)
[2021-07-30] MEDS ORDERED: PROSOURCE / PROSTAT (PYXIS) 30 ML UDC GT SCH (09:00)
[2021-07-30] MEDS ORDERED: Medication Not On Formulary EA (Om3/Dha/Epa/Cod Liver Oil/A/D3 (Cod Liver Oil Softgel) 1 GT SCH (09:00)
[2021-07-30] MEDS ORDERED: CRANBERRY EXT/C/L. SPOROGENES 405 MG/TAB TABLET GT SCH (09:00)
--- NOTE | 2021-07-30 09:23 | NUR ---
WOUND CARE CONSULT: REVIEWED CHART, NURSING DOCUMENTATION AND PHOTOS WHICH INDICATE A GENERALIZED SKIN CONDITION AND SACRAL SCARRING, PRESENT ON ADMISSION. DEFER TO PMD FOR GENERALIZED RASH/SKIN CONDITION. RECOMMENDATIONS MADE FOR SKIN PROTECTION. DISCUSSED WITH NURSING STAFF. PT IS ON [facility] LOW AIRLOSS BED. MD IN AGREEMENT WITH PLAN OF CARE.
--- NOTE | 2021-07-30 09:25 | NUR ---
telesales specialist note patient in bed with trach to t piece 2l saturation 98% , on tele monitor st hr 130 , seen by wound nurse, with g tube feeding as ordered , no residual noted , keep hon elelvated at all time, bed in lowest and locked position, , rt hand hl intact and flushed well , on ivf as ordered aware patient has rashes, dr masters at bedside aware that hr 131 bp 100/73 oj to hold Norvasc , will cont to monitor
[2021-07-30 10:03] LABS: EOSINOPHILS % (MANUAL) 28 % (0-4); LYMPHOCYTES % (MANUAL) 6 % (16-48); MONOCYTES % (MANUAL) 3 % (0-11.0); NEUTROPHILS % (MANUAL) 63 (42-76)
[2021-07-30] MEDS ORDERED: JEVITY 1.2 CAL 1,000 ML BOTTLE GT PRN (10:30)
--- NOTE | 2021-07-30 11:44 | NUR ---
ms rn note trach suction done , rt at bedside abdominal us doing at this time
[2021-07-30] MEDS: GLUCERNA 1.2 1,000 ML BOTTLE GT PRN (12:27)
--- NOTE | 2021-07-30 15:03 | NUR ---
ms rn note all needs attended , rounds made ,keep clean dry
--- NOTE | 2021-07-30 18:11 | NUR ---
MS RN Closing Notes Pt resting in bed comfortably, with no acute respiratory distress noted at this time. Pt has a trach t-piece on 2L O2 with oxygen saturation of 99%. Pt has a sexton catheter with yellow/clear urine output of 1600ml on shift. Pt has a right hand 20gauge running 0.9% NS @100ml/hr. IV site is patent, dry, and in tact. Safety measures in place with bed in lowest locked position, call light within reach and all needs attended.
--- NOTE | 2021-07-30 19:30 | NUR ---
RN NOTE RECEIVED PT IN BED, AWAKE, UNABLE TO COMMUNICATE. ON TPIECE AT 2L, NO S/SX OF DISTRESS NOTED. SATING AT 99%. WITH IV ON RHAND, NS RUNNING AT 100ML/HR. NO SIGNS OF INFILTRATION NOTED. GT IN PLACE AND PATENT. NO RESIDUALS WERE NOTED. RENDON IN PLACE, DRAINING CLEAR YELLOW URINE OUTPUT BY GRAVITY. WILL CONTINUE TO MONITOR. ALL SAFETY MEASURES IN PACE PER PROTOCOL.
--- NOTE | 2021-07-30 19:40 | NUR ---
RN NOTE PT NOTED WITH ELEVATED BP AT 185/96 HR 114. NOT IN ANY DISTRESS. CLONIDINE PRN GIVEN ORDERED. CHARGE NURSE MADE AWARE. WILL CONTINUE TO MONITOR.
[2021-07-30] MEDS: CEFTRIAXONE 1 G in IV D5W 50 ML IV SCH (19:42)
--- NOTE | 2021-07-30 19:59 | NUR ---
rn note pt going to rm 306, gave report to kishan.
--- NOTE | 2021-07-30 21:30 | NUR ---
MS RN OPENING NOTE PATIENT TRANSFERRED FROM [facility], NON-VERBAL BUT OPENS EYES. TRACH PIECE INTACT WITH 2 LPM OF OXYGEN, NO S/S OF DISTRESS OR SOB NOTED, BREATHING EVEN AND UNLABORED. RENDON CATHETER IN PLACE DRAINING CLEAR YELLOW URINE. PT HAS GENERALIZED RASH ALL OVER BODY. G TUBE INTACT, PT ON GLUCERNA 1.2 @ 80 ML/HR BUT STOP FROM 1930 TO 2330 PER [facility] NURSE. RIGHT HAND #20G IV RUNNING NS @ 100 ML/HR. PT HAS LOW GRADE FEVER 99.3, COOLING MEASURES PERFORMED, PLACED COOL CLOTHS AND ICE PACKS. SAFETY MEASURES IN PLACE: BED LOCKED IN LOW POSITION, SIDE RAILS UP X 3, BED ALARM ON. WILL CONTINUE TO MONITOR PATIENT
[2021-07-30] MEDS: INSULIN GLARGINE, 100 UNIT/ML CARTRIDGE SQ SCH (23:36)
[2021-07-31] MEDS: ACETAMINOPHEN 325 MG TABLET PO PRN ×2 (00:39→18:06)
--- NOTE | 2021-07-31 00:40 | NUR ---
MS RN NOTE PATIENT WITH LOW GRADE FEVER 100.3. TYLENOL 650 MG GIVEN ORDERED. COOL CLOTHS AND ICE PACKS PLACED ON PATIENT. WILL CONTINUE TO MONITOR
--- NOTE | 2021-07-31 02:00 | NUR ---
MS RN NOTES PATIENT'S TEMP DOWN TO 98.4. WILL CONTINUE TO MONITOR PATIENT
[2021-07-31] MEDS: IV NS 0.9% 1,000 ML IV SCH ×2 (03:31→18:07)
[2021-07-31] MEDS: BLOOD SUGAR DIAGNOSTIC 1 EACH STRIP IN SCH ×4 (06:39→23:51)
[2021-07-31] MEDS: INSULIN REGULAR, HUMAN 100 UNIT/ML 3 ML VIAL SQ PRN (06:47)
[2021-07-31 07:15] LABS: CREATININE 1.1 mg/dL (0.6-1.3); PHOSPHORUS 3.1 mg/dL (2.5-4.9); POTASSIUM 3.9 mmol/L (3.5-5.1)
--- NOTE | 2021-07-31 07:30 | NUR ---
MS RN CLOSING NOTE PATIENT SLEEPING IN BED, TRACH PIECE IN PLACE WITH 2 LPM OF OXYGEN, BREATHING EVEN AND UNLABORED, NO S/S OF DISTRESS OR NOTED. RENDON CATH INTACT AND DRAINING CLEAR YELLOW URINE. PATIENT SUCTIONED THROUGHOUT SHIFT. PATIENT'S IV LEAKING, ATTEMPTED TO PLACE ANOTHER IV BUT WAS UNSUCCESSFUL, PT VERY CONTRACTED AND HARD STICK, ENDORSED TO DAY SHIFT NURSE FOR CONTINUITY OF CARE
[2021-07-31 07:33] LABS: BASOPHILS # (AUTO) 0.1 K/uL (0.0-0.2); BASOPHILS % (AUTO) 0.6 % (0.0-2.0); HEMATOCRIT 37 % (39-51); HEMOGLOBIN 11.7 g/dL (13.5-17.5); LYMPHOCYTES # (AUTO) 2.5 K/uL (0.8-4.8); LYMPHOCYTES % (AUTO) 17.6 % (20.0-44.0); MEAN CORPUSCULAR HGB CONC 31 g/dl (31.0-36.0); MEAN CORPUSCULAR VOLUME 80 fL (80-96); MONOCYTES # (AUTO) 0.9 K/uL (0.1-1.30); MONOCYTES % (AUTO) 6.2 % (2.0-12.0); NEUTROPHILS # (AUTO) 5.6 K/uL (1.8-8.9); PLATELET COUNT (AUTO) 260 K/uL (150-450); RED BLOOD CELL COUNT(AUTO) 4.67 MIL/uL (4.5-6.0); WHITE BLOOD COUNT (AUTO) 14.4 K/uL (4.3-11.0)
--- NOTE | 2021-07-31 07:53 | NUR ---
MS [facility] NOTE PATIENT WITH LOW GRADE FEVER 100.3. TYLENOL 650 MG GIVEN ORDERED. COOL CLOTHS AND ICE PACKS PLACED ON PATIENT. WILL CONTINUE TO MONITOR Addendum: 07/31/21 at 0755 by SREEKANTH QUIJANO RN WRONG TIME, DISREGARD
[2021-07-31 08:00] VITALS: BP 160/97
[2021-07-31 08:09] LABS: EOSINOPHILS % (AUTO) 36.6 % (0.0-6.0)
[2021-07-31] MEDS: FIXODENT 1 EA TUBE MM SCH ×2 (09:00→18:56)
[2021-07-31] MEDS: GLYCOPYRROLATE 1 MG TABLET GT SCH ×3 (10:03→18:06)
[2021-07-31] MEDS: METFORMIN 500 MG TABLET GT SCH ×2 (10:03→20:35)
[2021-07-31] MEDS: ASPIRIN 81 MG TAB.CHEW GT SCH (10:03)
[2021-07-31] MEDS: PANTOPRAZOLE 40 MG/PACK PACK GT SCH ×2 (10:03→18:06)
[2021-07-31] MEDS: POLYETHYLENE GLYCOL 3350 17 GM POWD.PACK GT SCH ×2 (10:03→18:06)
[2021-07-31] MEDS: LEVETIRACETAM SOL (5 ML) 100 MG/ML UDC GT SCH ×2 (10:03→20:35)
[2021-07-31] MEDS: SUCRALFATE 1 G/10 ML UDC GT SCH ×4 (10:03→20:35)
[2021-07-31] MEDS: FERROUS SULFATE (325 MG) 325 MG/TAB TABLET GT SCH ×2 (10:03→18:06)
[2021-07-31] MEDS: ASCORBIC ACID 500 MG TABLET GT SCH ×2 (10:03→18:06)
[2021-07-31] MEDS: AMLODIPINE BESYLATE 10 MG TABLET GT SCH (10:04)
[2021-07-31] MEDS: METOPROLOL TARTRATE 25 MG TABLET GT SCH ×4 (10:04→20:36)
[2021-07-31] MEDS: ENOXAPARIN SODIUM 30 MG/0.3 ML DISP.SYRIN SQ SCH (10:10)
[2021-07-31 11:07] LABS: NEUTROPHILS % (MANUAL) 40 (42-76)
[2021-07-31 11:08] LABS: EOSINOPHILS % (MANUAL) 38 % (0-4); LYMPHOCYTES % (MANUAL) 15 % (16-48); MONOCYTES % (MANUAL) 7 % (0-11.0)
[2021-07-31 16:00] VITALS: BP 150/90
--- NOTE | 2021-07-31 19:35 | NUR ---
MS/RN OPENING NOTE RECEIVED PATIENT RESTING IN BED. NON-VERBAL AT BASELINE. OPENS EYES. NO S/SX OF PAIN NOTED AT THIS TIME. CONTINUES ON T-PIECE O2 2L WITH NO S/SX OF RESPIRATORY DISTRESS NOTED. IV ACCESS TO RIGHT HAND #20G INTACT AND PATENT. CONTINUES ON IVF NS @ 100ML/HR. CONTINUES ON IV ABX. CONTINUES ON GT FEED GLUCERNA 1.2 @ 80ML/HR. PATIENT TOLERATING FEED WELL WITH NO RESIDUAL NOTED AT THIS TIME. CALL LIGHT WITHIN REACH. ASPIRATION, FALL AND SAFETY PRECAUTIONS MAINTAINED. WILL CONTINUE TO MONITOR.
[2021-07-31 20:00] VITALS: BP 173/78
[2021-07-31] MEDS: CEFTRIAXONE 1 G in IV D5W 50 ML IV SCH (20:35)
[2021-07-31] MEDS: CLONIDINE HCL 0.1 MG TABLET GT PRN (23:23)
[2021-07-31] MEDS: INSULIN GLARGINE, 100 UNIT/ML CARTRIDGE SQ SCH (23:29)
[2021-08-01] MEDS: IV NS 0.9% 1,000 ML IV SCH (00:23)
[2021-08-01] MEDS: BLOOD SUGAR DIAGNOSTIC 1 EACH STRIP IN SCH ×4 (05:25→23:55)
[2021-08-01] MEDS: GLUCERNA 1.2 1,000 ML BOTTLE GT PRN (05:32)
--- NOTE | 2021-08-01 06:35 | NUR ---
MS/RN CLOSING NOTE PATIENT CURRENTLY SLEEPING IN BED. NON-VERBAL AT BASELINE. OPENS EYES. NO S/SX OF PAIN NOTED AT THIS TIME. CONTINUES ON T-PIECE O2 2L WITH NO S/SX OF RESPIRATORY DISTRESS NOTED. IV ACCESS TO RIGHT HAND #20G INTACT AND PATENT. CONTINUES ON IVF NS @ 100ML/HR. CONTINUES ON IV ABX. CONTINUES ON GT FEED GLUCERNA 1.2 @ 80ML/HR. CALL LIGHT WITHIN REACH. ASPIRATION, FALL AND SAFETY PRECAUTIONS MAINTAINED. WILL ENDORSE PLAN OF CARE TO ONCOMING SHIFT.
[2021-08-01 06:51] LABS: BASOPHILS # (AUTO) 0.1 K/uL (0.0-0.2); BASOPHILS % (AUTO) 0.8 % (0.0-2.0); HEMATOCRIT 36 % (39-51); HEMOGLOBIN 11.6 g/dL (13.5-17.5); LYMPHOCYTES # (AUTO) 2.1 K/uL (0.8-4.8); MEAN CORPUSCULAR HGB CONC 32 g/dl (31.0-36.0); MEAN CORPUSCULAR VOLUME 79 fL (80-96); MONOCYTES # (AUTO) 0.5 K/uL (0.1-1.30); MONOCYTES % (AUTO) 4.4 % (2.0-12.0); NEUTROPHILS # (AUTO) 4.5 K/uL (1.8-8.9); NEUTROPHILS % (AUTO) 37.4 % (43.0-81.0); PLATELET COUNT (AUTO) 271 K/uL (150-450); RED BLOOD CELL COUNT(AUTO) 4.53 MIL/uL (4.5-6.0); WHITE BLOOD COUNT (AUTO) 12.1 K/uL (4.3-11.0)
[2021-08-01 06:57] LABS: CALCIUM, SERUM 8.7 mg/dL (8.5-10.1); CREATININE 1.2 mg/dL (0.6-1.3); POTASSIUM 3.8 mmol/L (3.5-5.1)
--- NOTE | 2021-08-01 07:10 | NUR ---
MS RN OPENING NOTE PATIENT SLEEPING IN BED. NON-VERBAL, OPENS EYES TO CALL OR TOUCH/ LIGHT PAIN. NO S/SX OF PAIN NOTED AT THIS TIME. CONTINUES ON T-PIECE O2 2L WITH NO S/SX OF RESPIRATORY DISTRESS NOTED. IV ACCESS TO RIGHT HAND #20G INTACT AND PATENT. CONTINUES ON IVF NS @ 100ML/HR. CONTINUES ON GT FEED GLUCERNA 1.2 @ 80ML/HR. WITH RENDON CATHETER TO URINE BAG, DRAINING WELL. CALL LIGHT WITHIN REACH. ASPIRATION, FALL AND SAFETY PRECAUTIONS MAINTAINED. BED LOCKED AND AT LOWEST POSITION, SIDERAILS RAISED X 2. CALL LIGHT AND BEDSIDE TABLE WITHIN REACH AT ALL TIMES. WILL CONTINUE TO MONITOR PATIENT.
[2021-08-01 07:11] LABS: EOSINOPHILS % (AUTO) 40.4 % (0.0-6.0)
[2021-08-01 08:00] VITALS: BP 168/88
[2021-08-01 08:46] LABS: EOSINOPHILS % (MANUAL) 41 % (0-4); LYMPHOCYTES % (MANUAL) 13 % (16-48); MONOCYTES % (MANUAL) 5 % (0-11.0); NEUTROPHILS % (MANUAL) 41 (42-76)
[2021-08-01] MEDS: FERROUS SULFATE (325 MG) 325 MG/TAB TABLET GT SCH ×2 (10:22→17:18)
[2021-08-01] MEDS: LEVETIRACETAM SOL (5 ML) 100 MG/ML UDC GT SCH ×2 (10:22→20:33)
[2021-08-01] MEDS: ASPIRIN 81 MG TAB.CHEW GT SCH (10:22)
[2021-08-01] MEDS: ACETAMINOPHEN 325 MG TABLET PO PRN (10:22)
[2021-08-01] MEDS: METOPROLOL TARTRATE 50 MG TABLET GT SCH ×4 (10:23→20:34)
[2021-08-01] MEDS: AMLODIPINE BESYLATE 10 MG TABLET GT SCH (10:23)
[2021-08-01] MEDS: PANTOPRAZOLE 40 MG/PACK PACK GT SCH ×2 (10:23→17:18)
[2021-08-01] MEDS: ASCORBIC ACID 500 MG TABLET GT SCH ×2 (10:24→17:18)
[2021-08-01] MEDS: POLYETHYLENE GLYCOL 3350 17 GM POWD.PACK GT SCH ×2 (10:24→17:18)
[2021-08-01] MEDS: METFORMIN 500 MG TABLET GT SCH ×2 (10:24→20:33)
[2021-08-01] MEDS: SUCRALFATE 1 G/10 ML UDC GT SCH ×4 (10:24→20:33)
[2021-08-01] MEDS: GLYCOPYRROLATE 1 MG TABLET GT SCH ×3 (10:24→17:18)
[2021-08-01] MEDS: FIXODENT 1 EA TUBE MM SCH ×2 (10:36→17:00)
[2021-08-01] MEDS: ENOXAPARIN SODIUM 30 MG/0.3 ML DISP.SYRIN SQ SCH (10:39)
[2021-08-01 16:00] VITALS: BP 154/86
--- NOTE | 2021-08-01 19:00 | NUR ---
MS RN CLOSING NOTE PATIENT SLEEPING IN BED. NON-VERBAL, OPENS EYES TO CALL OR TOUCH/ LIGHT PAIN. NO S/SX OF PAIN NOTED AT THIS TIME. CONTINUES ON T-PIECE O2 2L WITH NO S/SX OF RESPIRATORY DISTRESS NOTED. IV ACCESS TO RIGHT HAND #20G INTACT AND PATENT. CONTINUES ON IVF NS @ 100ML/HR. CONTINUES ON GT FEED GLUCERNA 1.2 @ 80ML/HR. WITH RENDON CATHETER TO URINE BAG, DRAINING WELL. CALL LIGHT WITHIN REACH. ASPIRATION, FALL AND SAFETY PRECAUTIONS MAINTAINED. BED LOCKED AND AT LOWEST POSITION, SIDERAILS RAISED X 2. CALL LIGHT AND BEDSIDE TABLE WITHIN REACH AT ALL TIMES. WILL ENDORSE PATIENT TO NEXT SHIFT FOR CONTINUITY OF CARE.
[2021-08-01] MEDS: CEFTRIAXONE 1 G in IV D5W 50 ML IV SCH (19:42)
--- NOTE | 2021-08-01 19:45 | NUR ---
MS RN OPENING NOTE Patient is alert, eyes open but non-verbal. RT at bedside to provide trach care and suction patient. Minimal coughing with thin clear to white sputum. No distress noted. All safety measures in place. L hand #20G IV flushed and patent. Briscoe catheter patent and draining yellow clear urine. Will continue to monitor.
[2021-08-01 20:00] VITALS: BP 159/103
--- NOTE | 2021-08-01 20:24 | NUR ---
retook temp 98.2, will continue to monitor.
--- NOTE | 2021-08-01 20:30 | NUR ---
checked for GT placement. + no residual flushed, Feeding restarted.
[2021-08-01] MEDS: INSULIN GLARGINE, 100 UNIT/ML CARTRIDGE SQ SCH (22:02)
--- NOTE | 2021-08-02 02:50 | NUR ---
R hand IV not flushing. Reinserted new IV L hand #20G PIV
[2021-08-02] MEDS: GLUCERNA 1.2 1,000 ML BOTTLE GT PRN (03:02)
[2021-08-02] MEDS: ACETAMINOPHEN 325 MG TABLET PO PRN (03:07)
[2021-08-02] MEDS: BLOOD SUGAR DIAGNOSTIC 1 EACH STRIP IN SCH ×3 (05:27→19:44)
[2021-08-02] MEDS: INSULIN REGULAR, HUMAN 100 UNIT/ML 3 ML VIAL SQ PRN (05:31)
--- NOTE | 2021-08-02 06:11 | NUR ---
Patient is alert to loud noise or soft touch, opens eyes, non-verbal. Oral care given, suctioned, RT suctioned trach too and provided trach care. G-tube flushes provided. Glucerna 1.2 feeding currently going HOB at 45 degree angle. O2 sats have at 100% on 2L via T piece. Temperature has been up and down peaking at 100.4, but managed with tylenol and cooling measures.
--- NOTE | 2021-08-02 07:15 | NUR ---
MS RN OPENING NOTE RECEIVED PATIENT ON BED ALERT/ SPONTANEOUS EYE OPENING, PATIENT IS NON VERBAL PATIENT IS ON OXYGEN AT 2LPM VIA T-PIECE. PATIENT WITH NO SIGNS OF RESPIRATORY DISTRESS WITH EVEN AND UNLABORED BREATHING COUGHS OCCASIONALLY AND REQUIRES REGULAR SUCTIONING. PATIENT WITH IV ACCESS ON LEFT HAND G20 ON SALINE LOCK, PATENT AND INTACT. WITH G-TUBE WITH GLUCERNA RUNNING AT 80ML/HR, TOLERATED WELL. SAFETY PRECAUTIONS IN PLACE WITH BED IN LOWEST, LOCKED POSITION, BRAKES ON, SIDE RAILS UPx2. CALL LIGHT AND TABLE WITHIN REACH AT ALL TIMES. WILL CONTINUE TO MONITOR PATIENT.
--- NOTE | 2021-08-02 07:29 | NUR ---
WOUND CARE CONSULT: PT SEEN FOR SKIN ASSESSMENT AND NOTED TO HAVE SKIN CONDITION WITH FLAKING SKIN WELL SACRAL SCARRING. DEFER TO MD FOR SKIN CONDITION, UNKNOWN ETIOLOGY. RECOMMENDATIONS MADE FOR SKIN PROTECTION. DISCUSSED WITH NURSING STAFF. PT IS ON ADORE ISOFLEX LOW AIRLOSS BED. MD IN AGREEMENT WITH PLAN OF CARE.
[2021-08-02] MEDS: ASCORBIC ACID 500 MG TABLET GT SCH ×2 (09:19→18:36)
[2021-08-02] MEDS: ASPIRIN 81 MG TAB.CHEW GT SCH (09:19)
[2021-08-02] MEDS: METFORMIN 500 MG TABLET GT SCH (09:20)
[2021-08-02] MEDS: POLYETHYLENE GLYCOL 3350 17 GM POWD.PACK GT SCH ×2 (09:20→18:36)
[2021-08-02] MEDS: GLYCOPYRROLATE 1 MG TABLET GT SCH ×3 (09:20→18:36)
[2021-08-02] MEDS: SUCRALFATE 1 G/10 ML UDC GT SCH ×3 (09:20→18:36)
[2021-08-02] MEDS: PANTOPRAZOLE 40 MG/PACK PACK GT SCH ×2 (09:20→18:36)
[2021-08-02] MEDS: FERROUS SULFATE (325 MG) 325 MG/TAB TABLET GT SCH ×2 (09:20→18:36)
[2021-08-02] MEDS: METOPROLOL TARTRATE 50 MG TABLET GT SCH ×3 (09:20→17:39)
[2021-08-02] MEDS: AMLODIPINE BESYLATE 10 MG TABLET GT SCH (09:20)
[2021-08-02] MEDS: LEVETIRACETAM SOL (5 ML) 100 MG/ML UDC GT SCH (09:20)
[2021-08-02 09:46] LABS: BASOPHILS # (AUTO) 0.1 K/uL (0.0-0.2); BASOPHILS % (AUTO) 0.9 % (0.0-2.0); HEMATOCRIT 33 % (39-51); HEMOGLOBIN 10.5 g/dL (13.5-17.5); LYMPHOCYTES # (AUTO) 2.2 K/uL (0.8-4.8); LYMPHOCYTES % (AUTO) 16.7 % (20.0-44.0); MEAN CORPUSCULAR HGB CONC 32 g/dl (31.0-36.0); MEAN CORPUSCULAR VOLUME 80 fL (80-96); MONOCYTES # (AUTO) 1.1 K/uL (0.1-1.30); MONOCYTES % (AUTO) 8.4 % (2.0-12.0); NEUTROPHILS # (AUTO) 4.7 K/uL (1.8-8.9); PLATELET COUNT (AUTO) 254 K/uL (150-450); RED BLOOD CELL COUNT(AUTO) 4.14 MIL/uL (4.5-6.0)
[2021-08-02] MEDS: FIXODENT 1 EA TUBE MM SCH ×2 (09:52→17:00)
[2021-08-02] MEDS: ENOXAPARIN SODIUM 30 MG/0.3 ML DISP.SYRIN SQ SCH (09:52)
[2021-08-02 10:02] LABS: CALCIUM, SERUM 8.8 mg/dL (8.5-10.1); POTASSIUM 3.6 mmol/L (3.5-5.1)
[2021-08-02] MEDS ORDERED: RXGEN XX (10:59)
--- NOTE | 2021-08-02 11:00 | NUR ---
MS RN NOTE PATIENT SEEN BY DR. HAGEN. PATIENT FOR DISCHARGE ORDERED. WILL WAIT FOR SKI INSTRUCTOR TO ENDORSE PATIENT TO FACILITY WHERE PATIENT WILL BE GOING TO. IN STABLE CONDTION. WILL CONTINUE TO MONITOR PAITENT.
[2021-08-02 12:01] LABS: EOSINOPHILS % (MANUAL) 32 % (0-4); LYMPHOCYTES % (MANUAL) 17 % (16-48); MONOCYTES % (MANUAL) 6 % (0-11.0); NEUTROPHILS % (MANUAL) 45 (42-76)
[2021-08-02] MEDS: CLONIDINE HCL 0.1 MG TABLET GT PRN (17:38)
[2021-08-02 17:39] VITALS: BP 181/91
--- NOTE | 2021-08-02 18:00 | NUR ---
MS RN NOTE PATIENT ENDORSED TO NIKITA HOLT FOR TRANSFER TO [facility]. ENDORSED AND ORDERED.
--- NOTE | 2021-08-02 19:00 | NUR ---
MS RN CLOSING NOTE PATIENT ON BED ALERT/ SPONTANEOUS EYE OPENING, PATIENT IS NON VERBAL PATIENT IS ON OXYGEN AT 2LPM VIA T-PIECE. PATIENT WITH NO SIGNS OF RESPIRATORY DISTRESS WITH EVEN AND UNLABORED BREATHING COUGHS OCCASIONALLY AND REQUIRES REGULAR SUCTIONING. PATIENT WITH IV ACCESS ON LEFT HAND G20 ON SALINE LOCK, PATENT AND INTACT. WITH G-TUBE WITH GLUCERNA RUNNING AT 80ML/HR, TOLERATED WELL. PATIENT FOR DISCHARGE, BUT AMBULANCE CAME TO SENIOR BUSINESS PROCESS ANALYST PATIENT BUT BP WAS ELEVATED THAT IS WHY HE WAS NOT PICKED UP. SAFETY PRECAUTIONS IN PLACE WITH BED IN LOWEST, LOCKED POSITION, BRAKES ON, SIDE RAILS UPx2. CALL LIGHT AND TABLE WITHIN REACH AT ALL TIMES. WILL ENDORSE TO NEXT SHIFT FOR CONTINUITY OF CARE.
--- NOTE | 2021-08-02 19:20 | NUR ---
MS RN NOTE WITH LATEST BP OF 127/63. RN [facility] NOTIFIED. AND [facility] NOTIFIED WELL, AND WILL CANOPY INSPECTOR PATIENT IN 30 MINUTES. ENDORSED TO NEXT SHIFT.
--- NOTE | 2021-08-02 19:46 | NUR ---
RN OPENING NOTES; RECEIVED PATIENT SLEEP IN BED COMFORTABLY, BED IN LOW POSITION, CALL LIGHTS WITHIN REACH, NO COMPLAIN OF PAIN AND DISCOMFORT AT THIS TIME, PATIENT IS NONE VERBAL ON G TUBE FEEDING GLUCERNA @80CC PER HOUR INFUSING WELL, WITH IV LINE AT LEFT HAND #20 WITH ONGOING ROCEPHIN, BED NO PAIN AND DISCOMFORT AT THIS TIME, KEPT CLEAN AND DRY FOR D/C AWAITING TO BE CYBER DEFENSE INCIDENT RESPONDER, WILL CONTINUE TO MONITOR.
[2021-08-02] MEDS ORDERED: CEFTRIAXONE 1 G in IV D5W 50 ML IV SCH (20:00)
--- NOTE | 2021-08-02 20:40 | NUR ---
GAUGER CHIEF NOTES: PATIENT LEFT THE FACILITY ON STABLE CONDITION AT 2230 VIA [facility] ON [place] VITALS ARE WITHIN NORMAL REACH, NO FEVER AT 98.2, NO FACIAL GRIMACING OR COMPLAIN OF PAIN AND DISCOMFORT, ALL NEEDS MET, DAUGHTER HARSHA CALLED AND MADE AWARE.
== END 2021-08-02 20:15 | DRG 720 ==
LOC: ER 18:05 → TELE1 20:35 → MEDSG1 07-30 09:51 → MED 07-30 20:40
PROVIDERS: ADMIT Family Medicine; ATTEND Internal Medicine
DX: A41.9 Sepsis, unspecified organism (principal); N17.0 Acute kidney failure with tubular necrosis; G93.40 Encephalopathy, unspecified; E87.2 Acidosis; J96.11 Chronic respiratory failure with hypoxia; I69.354 Hemiplegia and hemiparesis following cerebral infarction affecting left non-dominant side; Z93.0 Tracheostomy status; D63.8 Anemia in other chronic diseases classified elsewhere; D50.9 Iron deficiency anemia, unspecified; E11.9 Type 2 diabetes mellitus without complications; N39.0 Urinary tract infection, site not specified; E78.5 Hyperlipidemia, unspecified; E86.1 Hypovolemia; Z79.899 Other long term (current) drug therapy; Z79.82 Long term (current) use of aspirin; Z79.4 Long term (current) use of insulin; Z79.51 Long term (current) use of inhaled steroids; I10 Essential (primary) hypertension; J98.11 Atelectasis; K82.8 Other specified diseases of gallbladder; K80.20 Calculus of gallbladder without cholecystitis without obstruction; R13.10 Dysphagia, unspecified; Z20.822 Contact with and (suspected) exposure to COVID-19; E86.9 Volume depletion, unspecified
CPT/HCPCS: 31720; 36415; 36600; 71045-TC; 76700-TC; 80048-TC; 80061-TC; 80076-TC; 81001; 82803-TC; 82962-TC; 83605-TC; 83735-TC; 84100-TC; 84484-TC; 85025-TC; 85730-TC; 87040-TC; 87086-TC; 87186-TC; 94760-TC; 94799-TC; C9803; G0378; J0696; J1650; J1815; J1953; J7030; J7040; J7060; U0003

== ENCOUNTER 2021-09-16 15:58 | Inpatient (IN) | payer MEDICAID ==
[~2021-09-16] VITALS: Ht 172.7 cm; Wt 70.3 kg
[~2021-09-16 15:58] MED LIST changes: +ACET-2605 GT; +ACET-868 GT; -ACET1OOV6 NEB; -ALBU2.5V13 NEB; +AMIN30LI2 GT; -AMIN887L GT; -AMPI1VIA26 IV; +ASCO-352 GT; -CEFT1FRO2 IV; +CHLO473M5 MM; +CRAN500T3 GT; -ENOX30DI SQ; +ENOX30DI5 SQ; +GLYC2TAB21 GT; +METF-440 GT; -METF-440 PO; -METO100T14 GT; +METO25TA20 GT; +PANT40SU2 GT; -PANT40TA49 GT; +POLY17PO4 GT; +RXGEN XX; -ZINC220C6 PO; +[UNRECOGNIZED DRUG - OTHER] HHN
--- NOTE | 2021-09-16 16:05 | NUR ---
[id number] frm snf for elevated WBC 18.4. sent for further eval. On cool aerosol @ 6lpm via trach. Connected to the monitor and pulse ox. Kept comfortable, will continue to monitor accordingly.
[2021-09-16] MEDS ORDERED: IV NS 0.9% 1,000 ML BAG IV ONE (16:30)
[2021-09-16] MEDS ORDERED: HYDR-4076 GT (16:35)
[2021-09-16] MEDS ORDERED: ONDA4TAB5 GT (16:35)
[2021-09-16] MEDS ORDERED: MAGN400O6 GT (16:35)
[2021-09-16] MEDS ORDERED: MENT113O TD (16:35)
[2021-09-16 17:03] LABS: LYMPHOCYTES # (AUTO) 2.3 K/uL (0.8-4.8); MEAN CORPUSCULAR HGB CONC 32 g/dl (31.0-36.0)
[2021-09-16 17:06] LABS: BASOPHILS # (AUTO) 0.1 K/uL (0.0-0.2); BASOPHILS % (AUTO) 0.9 % (0.0-2.0); HEMATOCRIT 34 % (39-51); HEMOGLOBIN 10.7 g/dL (13.5-17.5); LYMPHOCYTES % (AUTO) 15.1 % (20.0-44.0); MEAN CORPUSCULAR VOLUME 82 fL (80-96); MONOCYTES % (AUTO) 6.5 % (2.0-12.0); NEUTROPHILS # (AUTO) 7.4 K/uL (1.8-8.9); NEUTROPHILS % (AUTO) 47.9 % (43.0-81.0); PLATELET COUNT (AUTO) 296 K/uL (150-450); RED BLOOD CELL COUNT(AUTO) 4.14 MIL/uL (4.5-6.0); WHITE BLOOD COUNT (AUTO) 15.5 K/uL (4.3-11.0)
[2021-09-16 17:08] LABS: EOSINOPHILS % (AUTO) 29.6 % (0.0-6.0)
[2021-09-16 17:09] LABS: BILIRUBIN,URINE Negative (NEGATIVE); COLOR,URINE YELLOW (YELLOW); LEUKOCYTE ESTERASE ,URINE Moderate (NEGATIVE); NITRITE, URINE Negative (NEGATIVE); PH,URINE 7.5 (5.0-8.0); PROTEIN,URINE 30 mg/dl (NEGATIVE); UGLUCOSE Negative (NEGATIVE); UROBILINOGEN,URINE 0.2 EU/dL (0.2)
[2021-09-16 17:10] LABS: BACTERIA,URINE 2+ /HPF (None Seen)
[2021-09-16 17:11] LABS: SQUAMOUS EPITHELIAL CELL,UR Few /HPF (None Seen)
[2021-09-16 17:24] LABS: CALCIUM, SERUM 8.8 mg/dL (8.5-10.1); CARBON DIOXIDE 30 mmol/L (21-32); CHLORIDE 103 mmol/L (98-107); GLUCOSE 157 mg/dL (74-106); POTASSIUM 3.8 mmol/L (3.5-5.1); SODIUM SERUM 142 mmol/L (136-145); UREA NITROGEN, BLOOD 27 mg/dL (7-18)
[2021-09-16 17:36] LABS: ALANINE AMINOTRANSFERASE 23 U/L (12-78); ALBUMIN 3.2 g/dL (3.4-5.0); ALKALINE PHOSPHATASE 74 U/L (46-116); ASPARTATE AMINOTRANSFERASE 14 U/L (15-37); BILIRUBIN,DIRECT 0.1 mg/dL (0.0-0.2); BILIRUBIN,TOTAL 0.3 mg/dL (0.2-1.0); TOTAL PROTEIN, SERUM 7.7 g/dL (6.4-8.2)
[2021-09-16] MEDS ORDERED: CEFTRIAXONE 1GM BAG (ER ONLY) 50 ML IV ONE ×2 (17:56→18:00)
--- NOTE | 2021-09-16 18:59 | NUR ---
HARSHA (DAUGHTER) PERSON TO NOTIFY.
[2021-09-16 19:40] LABS: BAND % (MANUAL) 3 % (0.0-5.0); EOSINOPHILS % (MANUAL) 24 % (0-4); LYMPHOCYTES % (MANUAL) 21 % (16-48); MONOCYTES % (MANUAL) 5 % (0-11.0); NEUTROPHILS % (MANUAL) 47 (42-76)
--- NOTE | 2021-09-16 19:45 | NUR ---
BED ASSIGNMENT: 119-1
[2021-09-16 20:00] VITALS: BP 163/75
[2021-09-16] MEDS ORDERED: ONDANSETRON HCL/PF 4 MG/2 ML VIAL IVP PRN (20:00)
--- NOTE | 2021-09-16 20:16 | NUR ---
REPORT GIVEN TO [facility]
--- NOTE | 2021-09-16 20:32 | NUR ---
PATIENT TRANSFERRED UNDER ACLS
--- NOTE | 2021-09-16 21:00 | NUR ---
RN ADMITTING NOTES, AT 2039 61 YEAR OLD MALE ADMITTED FROM ER DEPARTMENT VIA STRETCHER IN COMPANY OF 2 NURSES, UNDER MEDICAL SERVICES OF DR JOYA BOWLES WITH ADMITTING DX SEPSIS SECONDARY TO UTI, PATIENT ON T-PIECE WITH TRACH IN PLACED ON 6LPM COOL AEROSOL, WITH O2 100%, 175/74, 125, 98.4, PROVIDE PATIENT WITH BED BATH, WILL LET HIM REST AND RE-CHECK VS LATER AFEBRILE, NO SOB/ACUTE DISTRESS NOTED, AFEBRILE, NOTED WITH GENERAL RASH IN WHOLE BODY, WOUND CONSULT ORDERED, IV SITE LEFT HAND 18G PATENT AND INTACT, GT IN PLACE, NO ABNORMALITY NOTED, F/C IN PLACED DRAINING YELLOW URINE BY GRAVITY, PATIENT DRY AND CLEAN, BED LOCKED AND LOWEST POSITION, X2 S/R OF BED UP, CALL LIGHT W/I REACH, WILL CONTINUE TO MONITOR CLOSELY.
--- NOTE | 2021-09-16 21:30 | NUR ---
RN NOTES, UPDATE ABOUT PATIENT GIVEN TO DAUGHTER JAMES.
--- NOTE | 2021-09-16 21:40 | NUR ---
RN NOTES PATIENT BP 164/83, HR 120'S. PATIENT COMFORTABLE IN BED 0XYGEN SATURATION IS 99% IN 6L CA. INFORMED JOYA ON-CALL WITH ORDER TO GIVE MORPHINE AND MONITOR THE VITAL SIGNS CLOSELY.
[2021-09-16] MEDS ORDERED: hydrALAZINE HCL IV 20 MG VIAL IV PRN (22:00)
[2021-09-16] MEDS: MORPHINE SULFATE INJ 2 MG/ML DISP.SYRIN IV PRN (22:09)
[2021-09-16] MEDS: ENOXAPARIN SODIUM 40 MG/0.4 ML DISP.SYRIN SQ SCH (22:54)
[2021-09-16] MEDS: IV NS 0.9% 1,000 ML IV PRN (22:59)
[2021-09-17] VITALS: BP 146/75
[2021-09-17] MEDS ORDERED: Medication Not On Formulary EA (Ipratropium/Albuterol Sulfate (Duoneb 2.5-0.5 Mg/3 Ml So IH PRN (01:00)
[2021-09-17] MEDS ORDERED: IV NS 0.9% 1,000 ML IV ONE (01:00)
[2021-09-17] MEDS ORDERED: CLONIDINE HCL 0.1 MG TABLET GT PRN (01:00)
[2021-09-17] MEDS ORDERED: MAGNESIUM HYDROXIDE 30 ML UDC GT PRN (01:00)
[2021-09-17] MEDS ORDERED: DEXTROSE 50%-WATER 50 ML DISP.SYRIN IV PRN (01:30)
[2021-09-17] MEDS ORDERED: ALBUTEROL FS 2.5 MG/0.5 ML VIAL.NEB NEB PRN ×2 (02:00)
[2021-09-17] MEDS ORDERED: IPRATROPIUM NEB FS 0.5 MG/2.5 ML AMPUL.NEB IH PRN ×2 (02:00)
--- NOTE | 2021-09-17 02:10 | NUR ---
RN NOTES, PER JOYA DUPREE HEATER FURNACE TO ADMINISTER BOLUS 500LM ONCE FOR INCREASED HR, INSTEAD OF 1000ML.
[2021-09-17] MEDS ORDERED: IV NS 0.9% 500 ML IV ONE (02:30)
[2021-09-17 04:00] VITALS: BP 145/83
[2021-09-17] MEDS: MORPHINE SULFATE INJ 2 MG/ML DISP.SYRIN IV PRN (04:12)
[2021-09-17] MEDS: IV NS 0.9% 1,000 ML IV PRN ×2 (05:36→17:36)
[2021-09-17 06:24] LABS: BASOPHILS # (AUTO) 0.1 K/uL (0.0-0.2); BASOPHILS % (AUTO) 0.8 % (0.0-2.0); HEMATOCRIT 30 % (39-51); HEMOGLOBIN 9.6 g/dL (13.5-17.5); LYMPHOCYTES # (AUTO) 1.8 K/uL (0.8-4.8); LYMPHOCYTES % (AUTO) 14.9 % (20.0-44.0); MEAN CORPUSCULAR HGB CONC 32 g/dl (31.0-36.0); MEAN CORPUSCULAR VOLUME 82 fL (80-96); MONOCYTES # (AUTO) 0.8 K/uL (0.1-1.30); MONOCYTES % (AUTO) 6.8 % (2.0-12.0); NEUTROPHILS # (AUTO) 5.4 K/uL (1.8-8.9); NEUTROPHILS % (AUTO) 44.6 % (43.0-81.0); PLATELET COUNT (AUTO) 250 K/uL (150-450); RED BLOOD CELL COUNT(AUTO) 3.65 MIL/uL (4.5-6.0); WHITE BLOOD COUNT (AUTO) 12.1 K/uL (4.3-11.0)
--- NOTE | 2021-09-17 06:48 | NUR ---
RN CLOSING NOTES PATIENT IN BED RESPONSIVE TO TACTILE STIMULI. ON TRACHEOSTOMY SHILEY #6 INTACT CONNECTED TO T-PIECE AT 35 FIO2. WITH GT INTACT NO RESIDUAL NOTED. WITH RENDON CONNECTED TO URINE BAG DRAINING WITH YELLOWISH URINE. WITH IV ACCESS ON L FA G#20 PATENT FLUSHES WELL. WITH ONGOING IVF OF PNS 1000 @75CC/HR. ALL DUE MEDS GIVEN ORDERED. ALL SAFETY MEASURES IN PLACE, HOB ELEVATED, BED ON LOW POSITION AND LOCKED.CALL LIGHT WITHIN REACH. SUCTIONED SECREATION NEEDED. ALL NEEDS ATTENDED. ENDORSED TO INCOMING NURSE.
[2021-09-17 07:07] LABS: EOSINOPHILS % (AUTO) 32.9 % (0.0-6.0)
[2021-09-17 08:00] VITALS: BP 149/76
[2021-09-17] MEDS ORDERED: ACETAMINOPHEN 650 MG/20.3 ML UDC GT PRN (08:00)
--- NOTE | 2021-09-17 08:00 | NUR ---
RN MORNING NOTES PT RECEIVED IN BED, NONVERBAL, OPENS EYES, WITH PORTEX 6 TRACH 8L COOL AEROSOL FIO2 35% SETTINGS WELL TOLERATED O2 SAT AT 100%. SINUS TACH ON MONITOR HR 100, NO SIGNS OF PAIN OR ANY DISCOMFORT. RIGHT FA 18G IV ACCESS IN PLACE NS 75ML/HR, FLUSHES WELL, SITE CLEAR. GT CLAMPED AND CHECKED FOR PLACEMENT. NPO. SEE NURSING ASSESSMENT FOR SKIN ISSUES. SAFETY MEASURES IN PLACE. HEAD OF BED ELEVATED. BED IS LOCKED, IN LOWEST POSITION AND SIDE RAILS UP X2. CALL LIGHT WITHIN REACH OF THE PATIENT. WILL TURN AND REPOSITION Q 2 HOURS. WILL CONTINUE TO MONITOR AND REASSESS FOR ANY CHANGES AND WILL CARRY OUT ANY ONGOING AND ACTIVE MD ORDER THROUGHOUT SHIFT.
[2021-09-17] MEDS: BLOOD SUGAR DIAGNOSTIC 1 EACH STRIP VI SCH ×4 (08:10→22:12)
[2021-09-17] MEDS: INSULIN REGULAR, HUMAN 100 UNIT/ML 3 ML VIAL SQ PRN ×3 (08:18→16:51)
[2021-09-17] MEDS: FERROUS SULFATE (325 MG) 325 MG/TAB TABLET GT SCH ×2 (08:29→16:53)
[2021-09-17] MEDS: METFORMIN 500 MG TABLET GT SCH ×2 (08:29→21:34)
[2021-09-17] MEDS: ASCORBIC ACID 500 MG TABLET GT SCH ×2 (08:29→16:56)
[2021-09-17] MEDS: ASPIRIN 81 MG TAB.CHEW GT SCH (08:31)
[2021-09-17] MEDS: PANTOPRAZOLE 40 MG/PACK PACK GT SCH ×2 (08:31→16:53)
[2021-09-17] MEDS: AMLODIPINE BESYLATE 10 MG TABLET GT SCH (08:31)
[2021-09-17] MEDS: POLYETHYLENE GLYCOL 3350 17 GM POWD.PACK GT SCH ×2 (08:31→16:52)
[2021-09-17] MEDS: METOPROLOL TARTRATE 25 MG TABLET GT SCH ×4 (08:31→21:34)
[2021-09-17] MEDS: SUCRALFATE 1 G/10 ML UDC GT SCH ×4 (08:32→21:34)
[2021-09-17] MEDS: hydrALAZINE HCL 25 MG TABLET GT SCH ×4 (08:32→22:07)
[2021-09-17] MEDS: LEVETIRACETAM SOL (5 ML) 100 MG/ML UDC GT SCH ×2 (08:33→21:34)
[2021-09-17] MEDS: CHLORHEXIDINE GLUCONATE 15 ML UDC MM SCH ×2 (08:33→16:52)
[2021-09-17] MEDS: ACETAMINOPHEN 650 MG/20.3 ML UDC GT SCH (08:33)
[2021-09-17] MEDS: ENOXAPARIN SODIUM 40 MG/0.4 ML DISP.SYRIN SQ SCH ×2 (08:35→21:37)
[2021-09-17 08:47] LABS: ALBUMIN 2.8 g/dL (3.4-5.0); BILIRUBIN,TOTAL 0.4 mg/dL (0.2-1.0); CALCIUM, SERUM 8.2 mg/dL (8.5-10.1); CREATININE 0.9 mg/dL (0.6-1.3); POTASSIUM 3.3 mmol/L (3.5-5.1); TOTAL PROTEIN, SERUM 6.7 g/dL (6.4-8.2)
[2021-09-17] MEDS: GLYCOPYRROLATE 1 MG TABLET GT SCH ×3 (08:54→16:53)
[2021-09-17] MEDS: PROSOURCE / PROSTAT (PYXIS) 30 ML UDC GT SCH ×3 (08:57→16:52)
[2021-09-17] MEDS ORDERED: CRANBERRY EXT/C/L. SPOROGENES 405 MG/TAB TABLET GT SCH (09:00)
[2021-09-17] MEDS ORDERED: FIXODENT DENTURE ADHESIVE CREAM TUBE MM SCH (09:00)
[2021-09-17] MEDS ORDERED: PANTOPRAZOLE 40 MG VIAL IV SCH (09:00)
--- NOTE | 2021-09-17 09:30 | NUR ---
RN NOTES DUE MEDS GIVEN
[2021-09-17 10:13] LABS: BAND % (MANUAL) 2 % (0.0-5.0); EOSINOPHILS % (MANUAL) 24 % (0-4); LYMPHOCYTES % (MANUAL) 16 % (16-48); MONOCYTES % (MANUAL) 10 % (0-11.0); MYELOCYTES % 2 % (0-0); NEUTROPHILS % (MANUAL) 46 (42-76)
--- NOTE | 2021-09-17 11:40 | NUR ---
RN NOTES BP REASSESSED AFTER MORNING BP MEDICATION ADMINISTRATION: 132/76.
[2021-09-17 16:00] VITALS: BP 121/74
--- NOTE | 2021-09-17 18:40 | NUR ---
RN CLOSING NOTE PT IS RESTING AND LYING IN BED WITH HOB AT 30 DEGREES, NONVERBAL, OPENS EYES, WITH PORTEX 6 TRACH 8L COOL AEROSOL FIO2 35% SETTINGS WELL TOLERATED O2 SAT AT 100%. SINUS TACH ON MONITOR HR 100, NO SIGNS OF PAIN OR ANY DISCOMFORT. RIGHT FA 18G IV ACCESS IN PLACE NS 75ML/HR, FLUSHES WELL, SITE CLEAR. GT CLAMPED AND CHECKED FOR PLACEMENT. NPO. SAFETY MEASURES IN PLACE. BED IS LOCKED, IN LOWEST POSITION AND SIDE RAILS UP X2. CALL LIGHT WITHIN REACH. ALL DUE MEDICATIONS GIVEN AND PATIENT REMAINED STABLE THROUGHOUT SHIFT. WILL ENDORSE TO AUDIT INTERN NURSE FOR SELMA.
--- NOTE | 2021-09-17 19:30 | NUR ---
RN OPENING NOTES: RECEIVED PT A/OX0 IN BED IN NO S/SX OF ACUTE DISTRESS AT THIS TIME. NO SOB NOTED. PATIENT'S BREATHING IS EVEN AND UNLABORED. PATIENT IS ON T-PIECE 8L 0F 02 35%; TOLERATING WELL PT ON MS STATUS. PT HAS G TUBE FLUSHING AND PATENT; SITE CLEAN DRY AND INTACT; NO RESIDUAL NOTED; CLAMPED AT THIS TIME. WILL START FEEDING PER MD ORDER WITHIN SHIFT. NOTED IV SITE ON L FA #18; PATENT, INTACT AND FLUSHING WELL; NO S/S OF INFECTION OR INFILTRATION. WITH IV FLUID RUNNING ORDERED. RENDON CATH IN PLACE, MODERATE URINE OUTPUT NOTED. SAFETY MEASURES HAVE BEEN PROVIDED AND IMPLEMENTED. PATIENT BED ALARM IS ON. HEAD OF BED ELEVATED. BED IS LOCKED, IN LOWEST POSITION AND SIDE RAILS UP. CALL LIGHT WITHIN REACH OF THE PATIENT. APPLICABLE ISOLATION PRECAUTIONS IN PLACE. WILL CONTINUE TO MONITOR AND REASSESS FOR ANY CHANGES AND WILL CARRY OUT ANY ONGOING AND ACTIVE MD ORDER.
--- NOTE | 2021-09-17 19:40 | NUR ---
RN NOTES STARTED FEEDING OF GLUCERNA @20CC/HR WITH GOAL OF 40CC/HR. WILL MONITOR FOR PT'S TOLERANCE ALL THROUGHOUT THE SHIFT.
[2021-09-17] MEDS: GLUCERNA 1.2 1,000 ML BOTTLE GT PRN (19:44)
[2021-09-17] MEDS: CEFTRIAXONE 1 G in IV D5W 50 ML IV SCH (19:46)
[2021-09-17] MEDS: ACETAMINOPHEN 650 MG/20.3 ML UDC NG PRN (19:54)
[2021-09-17 20:00] VITALS: BP 187/89
--- NOTE | 2021-09-17 20:00 | NUR ---
RN NOTES NOTED PT'S BP IS AT 189/87@1999 AND TEMPT AT 99.7; PRN MEDICATIONS GIVEN INDICATED. CHIMNEY CONSTRUCTION SUPERVISOR MADE AWARE. WILL CONTINUE TO MONITOR AND ASSESS THROUGHOUT THE SHIFT. Addendum: 09/17/21 at 2312 by CARMINE DONOHUE RN @0 PT'S BP IS AT 139/63 HR IS AT 83; WILL CONTINUE TO MONITOR AND ASSESS THROUGHOUT THE SHIFT.
[2021-09-17 21:30] VITALS: BP 139/63
[2021-09-17] MEDS ORDERED: INSULIN GLARGINE,BASAGLAR 100 UNIT/ML INSULN.PEN SQ SCH (22:00)
[2021-09-17] MEDS: INSULIN GLARGINE, 100 UNIT/ML CARTRIDGE SQ SCH (22:13)
[2021-09-17] MEDS: *INSULIN REGULAR(HUMULIN R)HUM 100 UNIT/ML VIAL SQ PRN (22:14)
--- NOTE | 2021-09-17 23:00 | NUR ---
RN NOTES FAMILY CALLED (JAMES DAUGHTER- [phone]) PROVIDED GENERAL UPDATES ; BASIC TX AND V/S. ADVISED TO CALL IN THE AM IF NEED SPECIFIC INFO FROM , FAMILY ACKNOWLEDGED. ADVISED THAT RN WILL GIVE A CALL IF THERE'S ANY SIGNIFICANT UPDATES OR CHANGES TO PT. JAMES ACKNOWLEDGED.
[2021-09-18] VITALS (7 sets, daily range): BP systolic 123–179; BP diastolic 72–79
--- NOTE | 2021-09-18 | NUR ---
RN NOTES PATIENT REMAINED TO BE IN NO SIGNS OF ACUTE RESPIRATORY DISTRESS ,WILL CONTINUE TO MONITOR AND REASSESS FOR ANY CHANGES THROUGHOUT THE SHIFT.
--- NOTE | 2021-09-18 04:00 | NUR ---
RN NOTES NO NOTED CHANGES IN PATIENT CONDITION AT THIS TIME; PATIENT VITALS STABLE, NO SIGNS OF ACUTE RESPIRATORY DISTRESS. AM PATIENT CARE RENDERED.WILL CONTINUE TO MONITOR AND REASSESS FOR ANY CHANGES THROUGHOUT THE SHIFT.
[2021-09-18 06:26] LABS: BASOPHILS # (AUTO) 0.1 K/uL (0.0-0.2); HEMATOCRIT 29 % (39-51); HEMOGLOBIN 9.4 g/dL (13.5-17.5); LYMPHOCYTES # (AUTO) 1.9 K/uL (0.8-4.8); LYMPHOCYTES % (AUTO) 15.2 % (20.0-44.0); MEAN CORPUSCULAR HGB CONC 33 g/dl (31.0-36.0); MEAN CORPUSCULAR VOLUME 81 fL (80-96); MONOCYTES # (AUTO) 0.7 K/uL (0.1-1.30); MONOCYTES % (AUTO) 5.8 % (2.0-12.0); NEUTROPHILS # (AUTO) 5.1 K/uL (1.8-8.9); NEUTROPHILS % (AUTO) 40.5 % (43.0-81.0); PLATELET COUNT (AUTO) 261 K/uL (150-450); RED BLOOD CELL COUNT(AUTO) 3.57 MIL/uL (4.5-6.0); WHITE BLOOD COUNT (AUTO) 12.5 K/uL (4.3-11.0)
--- NOTE | 2021-09-18 06:42 | NUR ---
RN CLOSING NOTE: PATIENT REMAINS IN ROOM IN NO SIGNS OF RESPIRATORY DISTRESS, PATIENT STILL ON 8L OF 02 VIA T-PIECE ;TOLERATING WELL SATURATING @ >95% SP02. SAFETY MEASURES IMPLEMENTED, BED IN LOWEST POSITION, LOCKED, SIDE RAILS UP, CALL LIGHT WITHIN REACH. ALL NEEDS AND ORDERS ADDRESSED DURING THE SHIFT. IV ACCESS MAINTAINED INTACT, SECURED AND FLUSHING WELL. ALL DUE MEDS GIVEN ORDERED & SCHEDULED ; PATIENT TOLERATED WELL. PATIENT KEPT CLEAN AND COMFORTABLE WITHIN THE SHIFT. PATIENT ENDORSED TO INCOMING SHIFT RN WITH STABLE VITAL SIGN AND FOR CONTINUITY OF CARE.
[2021-09-18 06:52] LABS: CALCIUM, SERUM 8.6 mg/dL (8.5-10.1); CREATININE 0.9 mg/dL (0.6-1.3); POTASSIUM 3.2 mmol/L (3.5-5.1)
[2021-09-18] MEDS: IV NS 0.9% 1,000 ML IV PRN ×2 (07:01→22:28)
[2021-09-18] MEDS: BLOOD SUGAR DIAGNOSTIC 1 EACH STRIP VI SCH ×4 (07:30→22:07)
[2021-09-18 07:34] LABS: EOSINOPHILS % (AUTO) 37.5 % (0.0-6.0)
--- NOTE | 2021-09-18 08:00 | NUR ---
RN NOTE RECEIVED PATIENT IN BED, EYES CLOSED, NON-VERBAL. AOX1. BREATHING EVEN AND UNLABORED. PATIENT NOTED WITH TRACHEOSTOMY RECEIVING OXYGEN 5LPM FULL AEROSOL 28 PERCENT VIA T-PIECE. OXYGEN SATURATION OF 99 PERCENT. TOLERATING WELL. PATIENT NOTED TRYING TO EXPEL MUCOUS SECRETIONS. PATIENT SUCTIONED TOLERATED. SMALL AMOUNT OF MUCOUS. MUCUS IS WHITE AND THICK IN APPEARANCE. SKIN WARM AND MOIST. NOTED WITH ACCESS ON LFA 18G. PATENT WITH GOOD BLOOD RETURN, RUNNING NS AT 75 ML/HR. NO INFILTRATION NOTED. PATIENT NOTED WITH G-TUBE. INTACT AND VERIFIED PLACEMENT THROUGH AUSCULTATION. 10 ML RESIDUAL. ON FEEDING OF GLUCERNA AT 40 ML/HR. TOLERATING WELL. NOTED WITH INTACT RENDON CATHETER, DRAINING YELLOW URINE. NO SEDIMENTS NOTED. BED LOW, IN LOCKED POSITION. CALL LIGHT WITHIN REACH. WILL CONTINUE TO MONITOR. Addendum: 09/18/21 at 2334 by AARTI FATIMA RN WRONG TIME
[2021-09-18] MEDS: ASPIRIN 81 MG TAB.CHEW GT SCH (09:15)
[2021-09-18] MEDS: hydrALAZINE HCL 25 MG TABLET GT SCH ×4 (09:16→20:41)
[2021-09-18] MEDS: FERROUS SULFATE (325 MG) 325 MG/TAB TABLET GT SCH ×2 (09:17→16:33)
[2021-09-18] MEDS: METOPROLOL TARTRATE 25 MG TABLET GT SCH ×4 (09:17→20:41)
[2021-09-18] MEDS: ASCORBIC ACID 500 MG TABLET GT SCH ×2 (09:17→16:33)
[2021-09-18] MEDS: GLYCOPYRROLATE 1 MG TABLET GT SCH ×3 (09:17→16:34)
[2021-09-18] MEDS: PANTOPRAZOLE 40 MG/PACK PACK GT SCH ×2 (09:18→16:37)
[2021-09-18] MEDS: CHLORHEXIDINE GLUCONATE 15 ML UDC MM SCH ×2 (09:21→16:32)
[2021-09-18] MEDS: LEVETIRACETAM SOL (5 ML) 100 MG/ML UDC GT SCH ×2 (09:22→20:40)
[2021-09-18] MEDS: ENOXAPARIN SODIUM 40 MG/0.4 ML DISP.SYRIN SQ SCH (09:24)
[2021-09-18] MEDS: AMLODIPINE BESYLATE 10 MG TABLET GT SCH (09:30)
[2021-09-18] MEDS: POLYETHYLENE GLYCOL 3350 17 GM POWD.PACK GT SCH ×2 (09:30→16:33)
[2021-09-18] MEDS: METFORMIN 500 MG TABLET GT SCH ×2 (09:30→20:40)
[2021-09-18] MEDS: SUCRALFATE 1 G/10 ML UDC GT SCH ×4 (09:30→20:40)
[2021-09-18] MEDS: ACETAMINOPHEN 650 MG/20.3 ML UDC GT SCH (09:31)
[2021-09-18 09:45] LABS: EOSINOPHILS % (MANUAL) 23 % (0-4); LYMPHOCYTES % (MANUAL) 23 % (16-48); MONOCYTES % (MANUAL) 5 % (0-11.0); NEUTROPHILS % (MANUAL) 49 (42-76)
[2021-09-18] MEDS: PROSOURCE / PROSTAT (PYXIS) 30 ML UDC GT SCH ×3 (09:59→16:36)
[2021-09-18] MEDS: *INSULIN REGULAR(HUMULIN R)HUM 100 UNIT/ML VIAL SQ PRN ×2 (10:00→22:16)
[2021-09-18] MEDS: POTASSIUM CL. PREMIX PERIPHER. 50 ML IV SCH ×4 (11:53→16:33)
[2021-09-18] MEDS: INSULIN REGULAR, HUMAN 100 UNIT/ML 3 ML VIAL SQ PRN (12:51)
--- NOTE | 2021-09-18 14:20 | NUR ---
RECEIVED PATIENT AWAKE , UNABLE TO MAKE ANY NEEDS KNOWN, NO SOB NOTED , TRACH INTACT WORKING EFFICIENTLY, MAINTAINING 95-97 % sp02, PATIENT ON 8L OF 02 VIA T-PIECE ;TOLERATING WELL MAINTAINING 95-97%, SAFETY MEASURES IMPLEMENTED, BED IN LOWEST POSITION, LOCKED, SIDE RAILS UP, CALL LIGHT WITHIN REACH NOT ABLE TO DEMONSTARTE ABILITY TO USE CALL LIGHT, NOT FOLLOWING COMMANDS, ALL NEEDS AND ORDERS ADDRESSED DURING THE SHIFT. IV ACCESS MAINTAINED INTACT, SECURED AND FLUSHING WELL. PATIENT TOLERATED MEDICATIONS GIVEN VIA G-TUBE CRUSHED, PATIENT KEPT CLEAN AND COMFORTABLE AND REPOSITIONED, RT NOTIFIED FOR SUCTIONING AND BREATHING DEVICES TO ENSURE ALL PLACEMENT IS INTACT AND WORKING PROPERLY, NO S/S OF SOB JUST PRECAUTIONARY MEASURES TO KEEP DEVICES IN PLACE DURING SHIFT, WILL CONTINUE TO MONITOR.
[2021-09-18] MEDS: CEFTRIAXONE 1 G in IV D5W 50 ML IV SCH (19:25)
--- NOTE | 2021-09-18 20:00 | NUR ---
RN NOTE RECEIVED PATIENT IN BED, EYES CLOSED, NON-VERBAL. AOX1. BREATHING EVEN AND UNLABORED. PATIENT NOTED WITH TRACHEOSTOMY RECEIVING OXYGEN 5LPM FULL AEROSOL 28 PERCENT VIA T-PIECE. OXYGEN SATURATION OF 99 PERCENT. TOLERATING WELL. PATIENT NOTED TRYING TO EXPEL MUCOUS SECRETIONS. PATIENT SUCTIONED TOLERATED. SMALL AMOUNT OF MUCOUS. MUCUS IS WHITE AND THICK IN APPEARANCE. SKIN WARM AND MOIST. NOTED WITH ACCESS ON LFA 18G. PATENT WITH GOOD BLOOD RETURN, RUNNING NS AT 75 ML/HR. NO INFILTRATION NOTED. PATIENT NOTED WITH G-TUBE. INTACT AND VERIFIED PLACEMENT THROUGH AUSCULTATION. 10 ML RESIDUAL. ON FEEDING OF GLUCERNA AT 40 ML/HR. TOLERATING WELL. NOTED WITH INTACT RENDON CATHETER, DRAINING YELLOW URINE. NO SEDIMENTS NOTED. BED LOW, IN LOCKED POSITION. CALL LIGHT WITHIN REACH. WILL CONTINUE TO MONITOR.
--- NOTE | 2021-09-18 20:34 | NUR ---
RN NOTE REPLACED PATIENTS TRACH DRESSING AND VELCRO TIE. CLEANED AROUND SITE. PATIENT NOTED WITH SHILEY 6 TRACHEOSTOMY TUBE, REPLACED WITH RT. STERILE PROCEDURE OBSERVED. WILL CONTINUE TO MONITOR.
[2021-09-18] MEDS: INSULIN GLARGINE, 100 UNIT/ML CARTRIDGE SQ SCH (22:16)
--- NOTE | 2021-09-19 00:21 | NUR ---
RN NOTE RECEIVED A CALL FROM PATIENT'S DAUGHTER, JAMES JACOB. GAVE A BRIEF SUMMARY OF PATIENTS CURRENT CONDITION. DAUGHTER IS VERBALLY UPSET THAT SHE CAN NOT VISIT HER FATHER DUE TO MR. MASSEY'S COVID-PCR RESULTS STILL PENDING AT THIS TIME. STATING THAT SHE WILL COME AND SEE HER FATHER LATER IN THE MORNING REGARDLESS IF THE RESULT HAS CAME OUT OR NOT. EXPLAINED TO HER THAT PCR RESULTS TAKE TIME, UP TO THREE DAYS. ACCORDING TO PATIENTS PROFILE, PATIENT'S PCR CULTURE BEGAN PROCESSING ON 09/16/21 AT 1718. STATED TO HER THAT PER POLICY, PATIENT MUST HAVE A NEGATIVE COVID-PCR RESULT PRIOR TO IN-PERSON VISITATION. DAUGHTER STILL STATES SHE WILL COME. ADVISED HER TO CALL IN THE AM AGAIN TO SEE IF RESULTS ARE DELIVERED. CHARGE NURSE INFORMED.
[2021-09-19] MEDS: ACETAMINOPHEN 650 MG/20.3 ML UDC NG PRN ×2 (03:57→12:40)
--- NOTE | 2021-09-19 03:58 | NUR ---
RN NOTE PATIENT NOTED WITH TEMPERATURE OF 100.0F. VIA AXILLARY. SKIN WARM AND MOIST AT THIS TIME. NO CHILLS NOTED. PATIENT RESTING AT THIS TIME. ADMINISTERED TYLENOL 650 MG VIA G-TUBE. WILL CONTINUE TO MONITOR.
[2021-09-19 04:00] VITALS: BP 138/84
[2021-09-19 06:34] LABS: BASOPHILS # (AUTO) 0.2 K/uL (0.0-0.2); BASOPHILS % (AUTO) 1.1 % (0.0-2.0); HEMATOCRIT 30 % (39-51); HEMOGLOBIN 9.7 g/dL (13.5-17.5); LYMPHOCYTES # (AUTO) 2.3 K/uL (0.8-4.8); LYMPHOCYTES % (AUTO) 14.5 % (20.0-44.0); MEAN CORPUSCULAR HGB CONC 32 g/dl (31.0-36.0); MEAN CORPUSCULAR VOLUME 80 fL (80-96); MONOCYTES # (AUTO) 0.9 K/uL (0.1-1.30); MONOCYTES % (AUTO) 5.9 % (2.0-12.0); NEUTROPHILS # (AUTO) 6.6 K/uL (1.8-8.9); NEUTROPHILS % (AUTO) 41.6 % (43.0-81.0); PLATELET COUNT (AUTO) 304 K/uL (150-450); RED BLOOD CELL COUNT(AUTO) 3.75 MIL/uL (4.5-6.0); WHITE BLOOD COUNT (AUTO) 15.9 K/uL (4.3-11.0)
[2021-09-19 06:35] LABS: EOSINOPHILS % (AUTO) 36.9 % (0.0-6.0)
--- NOTE | 2021-09-19 07:16 | NUR ---
RN NOTE RECEIVED A CALL FROM WINEMAKERTERESA. PATIENT WITH CULTURE RESULT OF ESBL. PER WINEMAKER, PATIENTS ANTIBIOTIC NEEDS TO BE CHANGED TO [place]. WINEMAKER ADVISED TO NOTIFY THE INCOMING MD FOR MORNING SHIFT. WILL ENDORSE TO NEXT SHIFT. AM CHARGE NURSE INFORMED, AM RN, DENZEL, XIN.
[2021-09-19 07:33] LABS: EOSINOPHILS % (MANUAL) 35 % (0-4); LYMPHOCYTES % (MANUAL) 20 % (16-48); MONOCYTES % (MANUAL) 2 % (0-11.0); NEUTROPHILS % (MANUAL) 43 (42-76)
[2021-09-19 07:37] LABS: CALCIUM, SERUM 8.3 mg/dL (8.5-10.1); POTASSIUM 3.2 mmol/L (3.5-5.1)
--- NOTE | 2021-09-19 07:39 | NUR ---
RT Tracheal suctioning done, small thick white/yellow secretions. Spare trach and BVM by bedside. No SOB or respiratory distress noted. Addendum: 09/19/21 at 0739 by SEYMOUR SANCHEZ RT Amended: Links added.
[2021-09-19] MEDS: BLOOD SUGAR DIAGNOSTIC 1 EACH STRIP VI SCH ×4 (07:45→21:51)
[2021-09-19 08:00] VITALS: BP 166/88
[2021-09-19] MEDS: FERROUS SULFATE (325 MG) 325 MG/TAB TABLET GT SCH ×2 (08:39→17:42)
[2021-09-19] MEDS: METOPROLOL TARTRATE 25 MG TABLET GT SCH ×4 (08:40→21:41)
[2021-09-19] MEDS: ASPIRIN 81 MG TAB.CHEW GT SCH (08:40)
[2021-09-19] MEDS: METFORMIN 500 MG TABLET GT SCH ×2 (08:40→21:41)
[2021-09-19] MEDS: GLYCOPYRROLATE 1 MG TABLET GT SCH ×3 (08:41→17:41)
[2021-09-19] MEDS: hydrALAZINE HCL 25 MG TABLET GT SCH ×4 (08:41→21:42)
[2021-09-19] MEDS: ASCORBIC ACID 500 MG TABLET GT SCH ×2 (08:41→17:42)
[2021-09-19] MEDS: AMLODIPINE BESYLATE 10 MG TABLET GT SCH (08:41)
[2021-09-19] MEDS: PANTOPRAZOLE 40 MG/PACK PACK GT SCH ×2 (08:41→17:42)
[2021-09-19] MEDS: CHLORHEXIDINE GLUCONATE 15 ML UDC MM SCH ×2 (08:41→17:41)
[2021-09-19] MEDS: POLYETHYLENE GLYCOL 3350 17 GM POWD.PACK GT SCH ×2 (08:42→17:43)
[2021-09-19] MEDS: LEVETIRACETAM SOL (5 ML) 100 MG/ML UDC GT SCH ×2 (08:42→21:41)
[2021-09-19] MEDS: ACETAMINOPHEN 650 MG/20.3 ML UDC GT SCH (08:42)
[2021-09-19] MEDS: ENOXAPARIN SODIUM 40 MG/0.4 ML DISP.SYRIN SQ SCH (08:51)
[2021-09-19] MEDS: GLUCERNA 1.2 1,000 ML BOTTLE GT PRN (09:04)
[2021-09-19] MEDS: PROSOURCE / PROSTAT (PYXIS) 30 ML UDC GT SCH ×3 (09:17→18:17)
[2021-09-19] MEDS: SUCRALFATE 1 G/10 ML UDC GT SCH ×4 (09:20→21:41)
[2021-09-19] MEDS: MEROPENEM 500 MG in IV NS 0.9% 100 ML IV SCH ×2 (10:28→21:51)
[2021-09-19] MEDS: POTASSIUM CHLORIDE 20 MEQ POWDER PACKET GT SCH ×2 (10:28→12:59)
[2021-09-19] MEDS: IV NS 0.9% 1,000 ML IV PRN (10:29)
--- NOTE | 2021-09-19 11:01 | NUR ---
RT Tracheal suctioning done, small thick white/yellow secretions. No SOB or respiratory distress noted. Addendum: 09/19/21 at 1101 by SEYMOUR SANCHEZ RT Amended: Links added.
[2021-09-19] MEDS: INSULIN REGULAR, HUMAN 100 UNIT/ML 3 ML VIAL SQ PRN (12:44)
[2021-09-19] MEDS ORDERED: POTASSIUM CHLORIDE 20 MEQ POWDER PACKET GT ONE (13:00)
--- NOTE | 2021-09-19 15:07 | NUR ---
RT Tracheal suctioning done, small thick white/yellow secretions. Trach care done, inner cannula, trach tie, and gauze changed. No SOB or respiratory distress noted. Addendum: 09/19/21 at 1625 by SEYMOUR SANCHEZ RT Amended: Links added.
[2021-09-19 16:00] VITALS: BP 163/80
--- NOTE | 2021-09-19 16:45 | NUR ---
RN NOTES PT TRANSFERRED TO ROOM 306, REPORT GIVEN TO NEMO. NO NOTABLE CHANGES IN THE PATIENT'S CONDITION AT THIS TIME.
--- NOTE | 2021-09-19 17:00 | NUR ---
MS RN NOTE RECEIVED PATIENT FROM [facility] ACCOMPANIED BY 2 NURSES AND AN RT VIA GURNEY. PATIENT WITH SPONTANEOUS EYE OPENING, NON VERBAL. WITH CONTRACTURES ON ALL EXTREMITIES. PATIENT WITH TRACH ON 5LPM AEROSOL OXYGEN SUPPLEMENTATION WITH NO SIGNS OF RESPIRATORY DISTRESS, SATURATING AT 99-100%. PATIENT WITH IV ACCESS ON LEFT HAND G 22 WITH NS RUNNING AT 75ML/HR. WITH RENDON CATHETER TO URINE BAG. WITH G-TUBE WITH GLUCERNA 1.2 AT 40ML/HR. SAFETY MEASURES IMPLEMENTED, BED IN LOWEST POSITION, LOCKED, SIDE RAILS UP, CALL LIGHT WITHIN REACH. WILL CONTINUE TO MONITOR PATIENT.
--- NOTE | 2021-09-19 19:00 | NUR ---
MS RN CLOSING NOTE PATIENT FROM [facility] ACCOMPANIED BY 2 NURSES AND AN RT VIA GURNEY. PATIENT WITH SPONTANEOUS EYE OPENING, NON VERBAL. WITH CONTRACTURES ON ALL EXTREMITIES. PATIENT WITH TRACH ON 5LPM AEROSOL OXYGEN SUPPLEMENTATION WITH NO SIGNS OF RESPIRATORY DISTRESS, SATURATING AT 99-100%. PATIENT WITH IV ACCESS ON LEFT HAND G 22 WITH NS RUNNING AT 75ML/HR. WITH RENDON CATHETER TO URINE BAG. WITH G-TUBE WITH GLUCERNA 1.2 AT 40ML/HR. SAFETY MEASURES IMPLEMENTED, BED IN LOWEST POSITION, LOCKED, SIDE RAILS UP, CALL LIGHT WITHIN REACH. WILL ENDORSE PATIENT FOR CONTINUITY OF CARE.
--- NOTE | 2021-09-19 19:30 | NUR ---
RN OPENING NOTE PATIENT IN BED, WITH EMILY AT BEDSIDE. PATIENT IS NON VERBAL, OPENS EYES WITH VERBAL STIMULI. PATIENT HAS A TRACH IN PLACE WITH A T PIECE CONNECTED. COOL AEROSOL ON WITH 5 LPM O2. PATIENT HS A TF GLUCERNA 1.2 @ 40 ML/HR. L HAND 22 G PATENT AND INTACT WITH NS @75 ML/HR. SAFETY MEASURES IN PLACE: BED LOCKED AND IN LOWEST POSITION, CALL LIGHT WITHIN REACH, SIDE RAILS UP, CONTINUOUS O2 MONITOR ON, BED ALARM ON, HOB ELEVATED. WILL MONITOR PATIENT CLOSELY.
--- NOTE | 2021-09-19 19:45 | NUR ---
RT NOTE PT RECEIVED TRACHED ON COOL AEROSOL @ 28%. [address] SUCTION DONE, SMALL THICK WHITE YELLOW SECRETIONS NOTED. NO RESPIRATORY DISTRESS NOTED. CONT. PULSE OX CONNECTED. WILL CONTINUE TO MONITOR.
[2021-09-19 20:00] VITALS: BP 149/87
--- NOTE | 2021-09-19 21:00 | NUR ---
RN NOTE GT RESIDUAL AT 10 ML, INCREASED FEEDING RATE AT 50 ML/HR.
[2021-09-19] MEDS: INSULIN GLARGINE, 100 UNIT/ML CARTRIDGE SQ SCH (21:55)
[2021-09-19] MEDS: *INSULIN REGULAR(HUMULIN R)HUM 100 UNIT/ML VIAL SQ PRN (21:56)
--- NOTE | 2021-09-19 22:00 | NUR ---
RN NOTE PATIENT'S BS 155 MG/DL, 2 UNITS OF INSULIN COVERAGE GIVEN. PT ON CONTINUOUS TF, WILL MONITOR FOR HYPOGLYCEMIA.
--- NOTE | 2021-09-20 | NUR ---
RN NOTE INCREASED TF RATE TO 60 ML/HR, NO RESIDUAL AT THIS TIME. WILL CONTINUE TO ADVANCE TF RATE TOLERATED.
[2021-09-20] MEDS: MEROPENEM 500 MG in IV NS 0.9% 100 ML IV SCH ×3 (04:00→20:15)
[2021-09-20] MEDS: IV NS 0.9% 1,000 ML IV PRN (06:00)
[2021-09-20] MEDS: BLOOD SUGAR DIAGNOSTIC 1 EACH STRIP VI SCH ×4 (06:32→22:02)
--- NOTE | 2021-09-20 06:41 | NUR ---
RN CLOSING NOTE PATIENT IN BED, EYES CLOSED PATIENT IS NON VERBAL, OPENS EYES WITH VERBAL STIMULI. PATIENT HAS A TRACH IN PLACE WITH A T PIECE CONNECTED. COOL AEROSOL ON WITH 5 LPM O2. PATIENT HAS A TF GLUCERNA 1.2 @ 60 ML/HR, TF OFF AT THIS TIME WILL BE TURNED ON AT 0800. BS 103 MG/DL, NO COVERAGE GIVEN. L HAND 22 G PATENT AND INTACT WITH NS @75 ML/HR, IV ABX STILL ON GOING. SAFETY MEASURES IN PLACE: BED LOCKED AND IN LOWEST POSITION, CALL LIGHT WITHIN REACH, SIDE RAILS UP, CONTINUOUS O2 MONITOR ON, BED ALARM ON, HOB ELEVATED. ALL NEEDS MET AND ATTENDED. ALL ORDERS CARRIED OUT. WILL ENDORSE TO DAY SHIFT NURSE FOR SELMA.
[2021-09-20 07:27] LABS: BASOPHILS # (AUTO) 0.2 K/uL (0.0-0.2); BASOPHILS % (AUTO) 1.1 % (0.0-2.0); HEMATOCRIT 30 % (39-51); HEMOGLOBIN 9.9 g/dL (13.5-17.5); LYMPHOCYTES # (AUTO) 2.4 K/uL (0.8-4.8); LYMPHOCYTES % (AUTO) 13.1 % (20.0-44.0); MEAN CORPUSCULAR HGB CONC 33 g/dl (31.0-36.0); MEAN CORPUSCULAR VOLUME 82 fL (80-96); MONOCYTES # (AUTO) 0.8 K/uL (0.1-1.30); MONOCYTES % (AUTO) 4.5 % (2.0-12.0); NEUTROPHILS # (AUTO) 7.5 K/uL (1.8-8.9); NEUTROPHILS % (AUTO) 40.1 % (43.0-81.0); PLATELET COUNT (AUTO) 327 K/uL (150-450); RED BLOOD CELL COUNT(AUTO) 3.71 MIL/uL (4.5-6.0); WHITE BLOOD COUNT (AUTO) 18.6 K/uL (4.3-11.0)
[2021-09-20 07:32] LABS: EOSINOPHILS % (AUTO) 41.2 % (0.0-6.0)
--- NOTE | 2021-09-20 07:52 | NUR ---
MS RN OPENING NOTES: RECEIVED PATIENT IN BED, EYES CLOSED, NON VERBAL, OPENS EYES WITH VERBAL STIMULI. PATIENT HAS A TRACH IN PLACE WITH A T PIECE CONNECTED. COOL AEROSOL ON WITH 5 LPM O2. PATIENT HAS A G-TUBE WITH GLUCERNA 1.2 @ 60 ML/HR, TF OFF AT THIS TIME WILL BE TURNED ON AT 0800. RENDON CATH IN PLACE DRAINING CLOUDY YELLOW URINE. L HAND 22 G PATENT AND INTACT WITH NS @75 ML/HR. SAFETY MEASURES IN PLACE: BED LOCKED AND IN LOWEST POSITION, CALL LIGHT WITHIN REACH, SIDE RAILS UP, CONTINUOUS O2 MONITOR ON, BED ALARM ON, HOB ELEVATED. WILL CONTINUE TO MONITOR PATIENT.
[2021-09-20 08:10] LABS: CALCIUM, SERUM 8.6 mg/dL (8.5-10.1); POTASSIUM 3.3 mmol/L (3.5-5.1)
[2021-09-20] MEDS: LEVETIRACETAM SOL (5 ML) 100 MG/ML UDC GT SCH ×2 (09:01→20:10)
[2021-09-20] MEDS: ASCORBIC ACID 500 MG TABLET GT SCH ×2 (09:01→16:05)
[2021-09-20] MEDS: SUCRALFATE 1 G/10 ML UDC GT SCH ×4 (09:01→20:10)
[2021-09-20] MEDS: CHLORHEXIDINE GLUCONATE 15 ML UDC MM SCH ×2 (09:01→16:05)
[2021-09-20] MEDS: ASPIRIN 81 MG TAB.CHEW GT SCH (09:02)
[2021-09-20] MEDS: FERROUS SULFATE (325 MG) 325 MG/TAB TABLET GT SCH ×2 (09:02→16:05)
[2021-09-20] MEDS: AMLODIPINE BESYLATE 10 MG TABLET GT SCH (09:02)
[2021-09-20] MEDS: hydrALAZINE HCL 25 MG TABLET GT SCH ×4 (09:02→20:10)
[2021-09-20] MEDS: GLYCOPYRROLATE 1 MG TABLET GT SCH ×3 (09:02→16:05)
[2021-09-20] MEDS: PANTOPRAZOLE 40 MG/PACK PACK GT SCH ×2 (09:02→16:05)
[2021-09-20] MEDS: POLYETHYLENE GLYCOL 3350 17 GM POWD.PACK GT SCH ×2 (09:03→16:05)
[2021-09-20] MEDS: METFORMIN 500 MG TABLET GT SCH ×2 (09:03→20:10)
[2021-09-20] MEDS: PROSOURCE / PROSTAT (PYXIS) 30 ML UDC GT SCH ×3 (09:03→16:10)
[2021-09-20] MEDS: METOPROLOL TARTRATE 25 MG TABLET GT SCH ×4 (09:03→20:11)
[2021-09-20 09:04] VITALS: BP 185/93
[2021-09-20] MEDS: ENOXAPARIN SODIUM 40 MG/0.4 ML DISP.SYRIN SQ SCH (09:06)
[2021-09-20] MEDS: ACETAMINOPHEN 650 MG/20.3 ML UDC GT SCH (09:19)
[2021-09-20] MEDS ORDERED: POTASSIUM CHLORIDE 20 MEQ POWDER PACKET GT SCH (10:00)
[2021-09-20 13:33] LABS: EOSINOPHILS % (MANUAL) 45 % (0-4); LYMPHOCYTES % (MANUAL) 13 % (16-48); MONOCYTES % (MANUAL) 4 % (0-11.0); NEUTROPHILS % (MANUAL) 38 (42-76)
[2021-09-20] MEDS: GLUCERNA 1.2 1,000 ML BOTTLE GT PRN (16:39)
[2021-09-20] MEDS: INSULIN REGULAR, HUMAN 100 UNIT/ML 3 ML VIAL SQ PRN (17:05)
--- NOTE | 2021-09-20 18:42 | NUR ---
MS RN CLOSING NOTES: PATIENT REMAINS IN BED, EYES CLOSED, NON VERBAL, CONTRACTED. PATIENT HAS A TRACH IN PLACE WITH A T-PIECE CONNECTED. COOL AEROSOL ON WITH 5 LPM O2. PATIENT HAS A G-TUBE WITH GLUCERNA 1.2 @ 60 ML/HR. RENDON CATH IN PLACE DRAINING YELLOW URINE WITH 1200 DAILY OUTPUT. L HAND 22 G PATENT AND INTACT WITH NS @75 ML/HR. ALL NEEDS ATTENDED DURING THE DAY. SAFETY MEASURES IN PLACE: BED LOCKED AND IN LOWEST POSITION, CALL LIGHT WITHIN REACH, SIDE RAILS UP, CONTINUOUS O2 MONITOR ON, BED ALARM ON, HOB ELEVATED. WILL ENDORSE TO JAVASCRIPT DEVELOPER NURSE.
--- NOTE | 2021-09-20 19:15 | NUR ---
RN OPENING NOTES PATIENT IN BED, EYES CLOSED, NON VERBAL, CONTRACTED. PATIENT HAS A TRACH IN PLACE WITH A T-PIECE CONNECTED. COOL AEROSOL ON WITH 5 LPM O2. PATIENT HAS A G-TUBE WITH GLUCERNA 1.2 @ 60 ML/HR. RENDON CATH IN PLACE DRAINING YELLOW URINE. L HAND 22 G PATENT AND INTACT WITH NS @75 ML/HR. ALL NEEDS ATTENDED AT THIS TIME. SAFETY MEASURES IN PLACE: BED LOCKED AND IN LOWEST POSITION, CALL LIGHT WITHIN REACH, SIDE RAILS UP, CONTINUOUS O2 MONITOR ON, BED ALARM ON, HOB ELEVATED. WILL CONTINUE TO MONITOR.
[2021-09-20 20:00] VITALS: BP 164/87
[2021-09-20] MEDS: *INSULIN REGULAR(HUMULIN R)HUM 100 UNIT/ML VIAL SQ PRN (22:05)
[2021-09-20] MEDS: INSULIN GLARGINE, 100 UNIT/ML CARTRIDGE SQ SCH (22:07)
[2021-09-21] MEDS: MEROPENEM 500 MG in IV NS 0.9% 100 ML IV SCH ×3 (04:07→21:08)
[2021-09-21] MEDS: BLOOD SUGAR DIAGNOSTIC 1 EACH STRIP VI SCH ×4 (06:39→21:08)
[2021-09-21 06:44] LABS: BASOPHILS # (AUTO) 0.2 K/uL (0.0-0.2); BASOPHILS % (AUTO) 1.1 % (0.0-2.0); HEMATOCRIT 32 % (39-51); HEMOGLOBIN 10.2 g/dL (13.5-17.5); LYMPHOCYTES % (AUTO) 14.8 % (20.0-44.0); MEAN CORPUSCULAR HGB CONC 32 g/dl (31.0-36.0); MEAN CORPUSCULAR VOLUME 85 fL (80-96); MONOCYTES # (AUTO) 0.9 K/uL (0.1-1.30); MONOCYTES % (AUTO) 4.3 % (2.0-12.0); NEUTROPHILS # (AUTO) 6.9 K/uL (1.8-8.9); NEUTROPHILS % (AUTO) 33.4 % (43.0-81.0); PLATELET COUNT (AUTO) 299 K/uL (150-450); WHITE BLOOD COUNT (AUTO) 20.6 K/uL (4.3-11.0)
[2021-09-21 06:46] LABS: EOSINOPHILS % (AUTO) 46.4 % (0.0-6.0)
--- NOTE | 2021-09-21 06:47 | NUR ---
RN CLOSING NOTES PATIENT IN BED, EYES CLOSED, NON VERBAL, CONTRACTED. PATIENT HAS A TRACH IN PLACE WITH A T-PIECE CONNECTED. COOL AEROSOL ON WITH 5 LPM O2. PATIENT HAS A G-TUBE WITH GLUCERNA 1.2 @ 60 ML/HR STOPPED AT THIS TIME TO BE STARTED AGAIN AT 0900. RENDON CATH IN PLACE DRAINING YELLOW URINE 950 CC.L HAND 22 G PATENT AND INTACT WITH NS @75 ML/HR. ALL NEEDS ATTENDED AT THIS TIME. SAFETY MEASURES IN PLACE. ALL DUE MEDS GIVEN AND TOLERATED WELL.BED LOCKED AND IN LOWEST POSITION, CALL LIGHT WITHIN REACH, SIDE RAILS UP, CONTINUOUS O2 MONITOR ON, BED ALARM ON, HOB ELEVATED. WILL ENDORSE CARE TO DAY HSIFT NURSE.
[2021-09-21 06:58] LABS: CALCIUM, SERUM 8.5 mg/dL (8.5-10.1); CREATININE 1.1 mg/dL (0.6-1.3); POTASSIUM 3.8 mmol/L (3.5-5.1)
--- NOTE | 2021-09-21 07:35 | NUR ---
MS/RN OPENING NOTES RECEIVED PATIENT ON BED NON VERBAL. PATIENT IS ON T-PIECE SATURATION WELL. PATIENT IN NO APPARENT RESPIRATORY DISTRESS NOTED. NO SIGN AND SYMPTOM OF PAIN NOTED AT THIS TIME. DR. VEGA ORDER URINE CULTURE, SPUTUM CULTURE, BLOOD CULTURE AND NS 1L AT 100ML/HOUR. NOTED AND CARRIED OUT. WILL CONTINUE TO MONITOR.
[2021-09-21 08:00] VITALS: BP 161/87
[2021-09-21 08:22] LABS: EOSINOPHILS % (MANUAL) 45 % (0-4); LYMPHOCYTES % (MANUAL) 15 % (16-48); MONOCYTES % (MANUAL) 5 % (0-11.0); NEUTROPHILS % (MANUAL) 35 (42-76)
[2021-09-21] MEDS: LEVETIRACETAM SOL (5 ML) 100 MG/ML UDC GT SCH ×2 (08:41→20:08)
[2021-09-21] MEDS: CHLORHEXIDINE GLUCONATE 15 ML UDC MM SCH ×2 (08:41→16:45)
[2021-09-21] MEDS: METFORMIN 500 MG TABLET GT SCH ×2 (08:42→20:08)
[2021-09-21] MEDS: GLYCOPYRROLATE 1 MG TABLET GT SCH ×3 (08:42→16:44)
[2021-09-21] MEDS: hydrALAZINE HCL 25 MG TABLET GT SCH ×4 (08:43→20:08)
[2021-09-21] MEDS: METOPROLOL TARTRATE 25 MG TABLET GT SCH ×4 (08:44→20:09)
[2021-09-21] MEDS: AMLODIPINE BESYLATE 10 MG TABLET GT SCH (08:44)
[2021-09-21] MEDS: ASPIRIN 81 MG TAB.CHEW GT SCH (08:44)
[2021-09-21] MEDS: SUCRALFATE 1 G/10 ML UDC GT SCH ×4 (08:44→20:08)
[2021-09-21] MEDS: ASCORBIC ACID 500 MG TABLET GT SCH ×2 (08:45→16:44)
[2021-09-21] MEDS: FERROUS SULFATE (325 MG) 325 MG/TAB TABLET GT SCH ×2 (08:45→16:44)
[2021-09-21] MEDS: PANTOPRAZOLE 40 MG/PACK PACK GT SCH ×2 (08:46→16:51)
[2021-09-21] MEDS: POLYETHYLENE GLYCOL 3350 17 GM POWD.PACK GT SCH ×2 (08:46→16:49)
[2021-09-21] MEDS: ENOXAPARIN SODIUM 40 MG/0.4 ML DISP.SYRIN SQ SCH (08:46)
[2021-09-21] MEDS: ACETAMINOPHEN 650 MG/20.3 ML UDC GT SCH (08:52)
[2021-09-21] MEDS: PROSOURCE / PROSTAT (PYXIS) 30 ML UDC GT SCH ×3 (08:52→16:52)
[2021-09-21] MEDS: VANCOMYCIN 1 GM in IV D5W 250ml IV SCH ×2 (09:57→20:11)
[2021-09-21] MEDS: INSULIN REGULAR, HUMAN 100 UNIT/ML 3 ML VIAL SQ PRN ×2 (12:06→17:14)
[2021-09-21] MEDS: GLUCERNA 1.2 1,000 ML BOTTLE GT PRN (15:52)
[2021-09-21 16:00] VITALS: BP 157/81
[2021-09-21] MEDS: IV NS 0.9% 1,000 ML IV PRN (17:46)
--- NOTE | 2021-09-21 18:37 | NUR ---
MS/RN CLOSING NOTES PATIENT IS AWAKE AND ALERT NON VERBAL, OPEN EYES. PATIENT IS ON T-PIECE WITH COOL AEROSOL SATURATING WELL. PATIENT IN NO APPARENT RESPIRATORY DISTRESS NOTED. NO SIGN AND SYMPTOM OF PAIN NOTED AT THIS TIME. IV ACCESS AT LEFT HAND #2OG WITH IV FLUID OF NS 1L AT 75ML/HOUR ON AND INFUSING WELL. SEEN AND EXAMINED BY MD WITH ORDERS MADE AND CARRIED OUT. ALL DUE MEDICATIONS WAS GIVEN. SAFETY PRECAUTIONS WAS IN PLACED. BED IN LOWEST POSITION AND LOCKED. SIDERAILS UP X2. CALL LIGHT WITHIN REACH. WILL ENDORSED TO APPLICATION DEVELOPMENT DIRECTOR FOR SELMA.
[2021-09-21 20:00] VITALS: BP 168/94
--- NOTE | 2021-09-21 20:00 | NUR ---
Patient is alert, eyes open, non-verbal. Trach present with T piece in place O2 at 5L via T piece O2 sat at 99%, no signs of distress, no secretions or signs of needing to be suctioned at this time. Tolerating G tube feeding well -no residual. On contact precautions for ESBL in urine. IV NS infusing at 100cc/hr -no signs of infiltration or extravasation at IV site. Will continue to monitor.
[2021-09-21] MEDS: INSULIN GLARGINE, 100 UNIT/ML CARTRIDGE SQ SCH (21:22)
[2021-09-22] MEDS: MEROPENEM 500 MG in IV NS 0.9% 100 ML IV SCH ×3 (05:28→20:55)
[2021-09-22] MEDS: BLOOD SUGAR DIAGNOSTIC 1 EACH STRIP VI SCH ×4 (06:48→21:23)
--- NOTE | 2021-09-22 06:48 | NUR ---
Patient O2 sat has been above 94% throughout night. Alert and opens eyes to loud noise and touch. Frequent suctioning of patient. thick yellow white secretions. f/c with 1300cc cloudy dark yellow output. Maintained contact precautions. Turned q2h. kept clean and dry.
[2021-09-22] MEDS: IV NS 0.9% 1,000 ML IV PRN (07:00)
--- NOTE | 2021-09-22 07:12 | NUR ---
MS [place] CLOSING NOTE RECEIVED PATIENT ON BED WITH SPONTANEOUS EYE OPENING, NON VERBAL. WITH CONTRACTURES ON ALL EXTREMITIES. PATIENT WITH TRACH ON 5LPM COOL AEROSOL OXYGEN SUPPLEMENTATION WITH NO SIGNS OF RESPIRATORY DISTRESS, SATURATING AT 99%. PATIENT WITH IV ACCESS ON LEFT HAND G 18 WITH NS RUNNING AT 100ML/HR. WITH RENDON CATHETER TO URINE BAG. WITH G-TUBE WITH GLUCERNA 1.2 CURRENTLY ON HOLD UNTIL 0900H. WAS RUNNING AT 60ML/HR. SAFETY MEASURES IMPLEMENTED, BED IN LOWEST POSITION, LOCKED, SIDE RAILS UP, CALL LIGHT WITHIN REACH. WILL CONTINUE TO MONITOR PATIENT. Addendum: 09/22/21 at 0815 by CODY BELL RN MS [place] OPENING NOTE
[2021-09-22 07:39] LABS: BASOPHILS # (AUTO) 0.2 K/uL (0.0-0.2); BASOPHILS % (AUTO) 0.9 % (0.0-2.0); HEMATOCRIT 31 % (39-51); HEMOGLOBIN 10.2 g/dL (13.5-17.5); LYMPHOCYTES # (AUTO) 2.6 K/uL (0.8-4.8); MEAN CORPUSCULAR HGB CONC 33 g/dl (31.0-36.0); MEAN CORPUSCULAR VOLUME 81 fL (80-96); MONOCYTES # (AUTO) 0.8 K/uL (0.1-1.30); MONOCYTES % (AUTO) 4.2 % (2.0-12.0); NEUTROPHILS # (AUTO) 6.4 K/uL (1.8-8.9); NEUTROPHILS % (AUTO) 34.3 % (43.0-81.0); PLATELET COUNT (AUTO) 275 K/uL (150-450); RED BLOOD CELL COUNT(AUTO) 3.82 MIL/uL (4.5-6.0); WHITE BLOOD COUNT (AUTO) 18.8 K/uL (4.3-11.0)
[2021-09-22 08:00] VITALS: BP_SYST 162; BP_SYST 187; BP_DIAS 106; BP_DIAS 90
[2021-09-22 08:09] LABS: CALCIUM, SERUM 8.1 mg/dL (8.5-10.1); CREATININE 0.9 mg/dL (0.6-1.3); POTASSIUM 3.1 mmol/L (3.5-5.1)
[2021-09-22 08:10] LABS: EOSINOPHILS % (AUTO) 46.6 % (0.0-6.0)
[2021-09-22] MEDS: ACETAMINOPHEN 650 MG/20.3 ML UDC GT SCH (09:42)
[2021-09-22] MEDS: ASCORBIC ACID 500 MG TABLET GT SCH ×2 (09:42→17:57)
[2021-09-22] MEDS: SUCRALFATE 1 G/10 ML UDC GT SCH ×4 (09:42→20:44)
[2021-09-22] MEDS: LEVETIRACETAM SOL (5 ML) 100 MG/ML UDC GT SCH ×2 (09:42→20:47)
[2021-09-22] MEDS: CHLORHEXIDINE GLUCONATE 15 ML UDC MM SCH ×2 (09:42→17:56)
[2021-09-22] MEDS: ASPIRIN 81 MG TAB.CHEW GT SCH (09:43)
[2021-09-22] MEDS: METFORMIN 500 MG TABLET GT SCH ×2 (09:43→20:44)
[2021-09-22] MEDS: PANTOPRAZOLE 40 MG/PACK PACK GT SCH ×2 (09:43→17:57)
[2021-09-22] MEDS: GLYCOPYRROLATE 1 MG TABLET GT SCH ×3 (09:43→17:57)
[2021-09-22] MEDS: FERROUS SULFATE (325 MG) 325 MG/TAB TABLET GT SCH ×2 (09:43→17:56)
[2021-09-22] MEDS: AMLODIPINE BESYLATE 10 MG TABLET GT SCH (09:44)
[2021-09-22] MEDS: POLYETHYLENE GLYCOL 3350 17 GM POWD.PACK GT SCH ×2 (09:44→17:56)
[2021-09-22] MEDS: METOPROLOL TARTRATE 25 MG TABLET GT SCH ×4 (09:44→20:46)
[2021-09-22] MEDS: hydrALAZINE HCL 25 MG TABLET GT SCH ×4 (09:44→20:47)
[2021-09-22] MEDS: VANCOMYCIN 1 GM in IV D5W 250ml IV SCH ×2 (09:45→22:18)
[2021-09-22] MEDS: PROSOURCE / PROSTAT (PYXIS) 30 ML UDC GT SCH ×3 (09:47→18:26)
[2021-09-22] MEDS: ENOXAPARIN SODIUM 40 MG/0.4 ML DISP.SYRIN SQ SCH (09:49)
[2021-09-22] MEDS: GLUCERNA 1.2 1,000 ML BOTTLE GT PRN (09:56)
[2021-09-22] MEDS: POTASSIUM CL. PREMIX PERIPHER. 50 ML IV SCH ×6 (10:45→17:04)
[2021-09-22 12:50] LABS: EOSINOPHILS % (MANUAL) 45 % (0-4); LYMPHOCYTES % (MANUAL) 11 % (16-48); MONOCYTES % (MANUAL) 7 % (0-11.0); NEUTROPHILS % (MANUAL) 37 (42-76)
[2021-09-22 16:00] VITALS: BP 162/90
--- NOTE | 2021-09-22 17:30 | NUR ---
MS RN NOTE COMPLETED POTASSIUM CORRECTION ORDERED.
--- NOTE | 2021-09-22 19:00 | NUR ---
MS RN CLOSING NOTE PATIENT ON BED WITH SPONTANEOUS EYE OPENING, NON VERBAL. WITH CONTRACTURES ON ALL EXTREMITIES. PATIENT WITH TRACH ON 5LPM COOL AEROSOL OXYGEN SUPPLEMENTATION WITH NO SIGNS OF RESPIRATORY DISTRESS, SATURATING AT 99%. PATIENT WITH IV ACCESS ON LEFT HAND G 18 WITH NS RUNNING AT 100ML/HR. WITH IV ACCESS ON RIGHT HAND G22 ON SALINE LOCK. WITH RENDON CATHETER TO URINE BAG. WITH G-TUBE WITH GLUCERNA 1.2 CURRENTLY ON HOLD UNTIL 0900H. WAS RUNNING AT 60ML/HR. SAFETY MEASURES IMPLEMENTED, BED IN LOWEST POSITION, LOCKED, SIDE RAILS UP, CALL LIGHT WITHIN REACH. WILL ENDORSE TO NEXT SHIFT FOR CONTINUITY OF CARE.
--- NOTE | 2021-09-22 19:58 | NUR ---
RT NOTE PT RECEIVED TRACHED ON COOL AEROSOL @ 28%. [address] SX DONE, TRACH SECURED AND PATENT. WATER LEVEL GOOD. CONT. PULSE OX CONNECTED. WILL CONTINUE TO MONITOR T/O SHIFT.
[2021-09-22 20:00] VITALS: BP 166/95
--- NOTE | 2021-09-22 20:00 | NUR ---
RN OPENING NOTE PATIENT IN BED, PATIENT IS NON VERBAL BUT ABLE TO OPEN EYES. PATIENT HAS A TRACH PRESENT CONNECTED TO A T PIECE. PATIENT IS RECEIVING 5 LPM WITH COOL AEROSOL. PATIENT DOES NOT HAVE ANY RESPIRATORY DISTRESS NOTED. PATIENT HAS A RENDON CATHETER IN PLACE, DRAINING CLOUDY URINE. G TUBE IN PLACE, GLUCERNA 1.2 RUNNING AT 70 CC/HR.ASPIRATED RESIDUAL IS 25 CC, FLUSHED BACK. INCREASED RATE TO 80CC/HR. WILL RECHECK RESIDUAL IN AN HOUR. PATIENT HAS A L HAND 18 G WITH NS@100 ML/HR AND A R HAND G20, SALINE LOCKED. BOTH PATENT AND INTACT. SAFETY MEASURES IN PLACE: BED LOCKED AND IN LOWEST POSITION CALL LIGHT WITHIN REACH, SIDE RAILS UP, HOB ELEVATED. WILL MONITOR PATIENT CLOSELY.
--- NOTE | 2021-09-22 21:00 | NUR ---
SURGICAL SERVICES COORDINATOR CAME TO DRAW VANCO TROUGH AT 20:50, RESULTS STILL PENDING.
[2021-09-22] MEDS: INSULIN GLARGINE, 100 UNIT/ML CARTRIDGE SQ SCH (21:21)
[2021-09-22] MEDS: *INSULIN REGULAR(HUMULIN R)HUM 100 UNIT/ML VIAL SQ PRN (21:22)
[2021-09-22 21:30] VITALS: BP 154/81
--- NOTE | 2021-09-22 21:45 | NUR ---
RN NOTE PATIENT'S VANCO TROUGH STILL PENDING. WILL ADMINISTER ONCE RESULTS ARE UP.
--- NOTE | 2021-09-22 22:00 | NUR ---
RN NOTE RESIDUAL FOR GT IS 5 CC, WILL KEEP 80 CC/HR. PATIENT TOLERATING.
[2021-09-23] MEDS: GLUCERNA 1.2 1,000 ML BOTTLE GT PRN (02:35)
[2021-09-23] MEDS: IV NS 0.9% 1,000 ML IV PRN (04:47)
[2021-09-23] MEDS: MEROPENEM 500 MG in IV NS 0.9% 100 ML IV SCH ×3 (04:47→21:32)
[2021-09-23] MEDS: BLOOD SUGAR DIAGNOSTIC 1 EACH STRIP VI SCH ×4 (06:41→21:39)
--- NOTE | 2021-09-23 06:42 | NUR ---
RN OPENING NOTE PATIENT IN BED, PATIENT IS NON VERBAL BUT ABLE TO OPEN EYES. PATIENT HAS A TRACH PRESENT CONNECTED TO A T PIECE. PATIENT IS RECEIVING 5 LPM WITH COOL AEROSOL. PATIENT DOES NOT HAVE ANY RESPIRATORY DISTRESS NOTED. PATIENT HAS A RENDON CATHETER IN PLACE, DRAINING CLOUDY URINE. G TUBE IN PLACE, GLUCERNA 1.2 AT 80 CC/HR. CURRENTLY OFF AT THIS TIME, WILL BE RESTARTED AT 0900. ASPIRATED RESIDUAL IS 20 CC, FLUSHED BACK. PATIENT HAS A L HAND 18 G WITH NS@100 ML/HR AND A R HAND G20, SALINE LOCKED. BOTH PATENT AND INTACT. SAFETY MEASURES IN PLACE: BED LOCKED AND IN LOWEST POSITION CALL LIGHT WITHIN REACH, SIDE RAILS UP, HOB ELEVATED, ESBL CONTACT PRECAUTIONS ON. WILL ENDORSE PATIENT TO DAY SHIFT NURSE FOR SELMA. BS 107 MG/DL. NO COVERAGE GIVEN. Addendum: 09/23/21 at 0646 by DARLINE OSPINA RN CLOSING NOTE
--- NOTE | 2021-09-23 07:26 | NUR ---
WOUND CARE CONSULT: RECEIVED CONSULT FOR SKIN EVAL. PT NOTED TO HAVE DISCOLORATION TO SKIN ALL OVER AND SACRAL SCARRING, PRESENT ON ADMISSION. RECOMMENDATIONS MADE FOR SKIN PROTECTION. DISCUSSED WITH NURSING STAFF. PT IS INCONTINENT OF STOOL. RENDON CATH NOTED. PT TO BE PLACED ON ADORE ISOFLEX LOW AIRLOSS BED. MD IN AGREEMENT WITH PLAN OF CARE.
[2021-09-23] MEDS ORDERED: ERGOCALCIFEROL (VITAMIN D 2) 50,000 UNIT CAPSULE GT SCH (07:47)
--- NOTE | 2021-09-23 07:51 | NUR ---
RN OPENING NOTE PT RESTING IN BED. T PIECE PRESENT WITH 5 LPM COOL AEROSOL. NO RESPIRATORY DISTRESS. NONVERBAL, BUT RESPONDS WITH OPEN EYES. NO ADMINISTRATION SPECIALIST. NO EDEMA PRESENT. F/C PRESENT AND DRAINS WELL. BEDBOUND WITH DIAPER PRESENT. GENERALIZED RASH PRESENT. SKIN IS INTACT. G/T PRESENT WITH GLUCERNA 1.2 RUNNING AT 80 ML/HR. IV PRESENT ON L HAND 18G WITH NS RUNNING AT 100 ML/HR. IV PRESENT ON R HAND 20G AND FLUSHES WELL. LABS AND ORDERS REVIEWED. SAFETY MEASURES IN PLACE. SIDE RAILS RAISED. BED LOWERED. CALL LIGHT WITHIN REACH. WILL CONTINUE TO MONITOR.
[2021-09-23 08:00] VITALS: BP 148/82
[2021-09-23 08:01] LABS: BASOPHILS # (AUTO) 0.1 K/uL (0.0-0.2); BASOPHILS % (AUTO) 0.7 % (0.0-2.0); HEMATOCRIT 32 % (39-51); HEMOGLOBIN 10.2 g/dL (13.5-17.5); LYMPHOCYTES # (AUTO) 2.6 K/uL (0.8-4.8); LYMPHOCYTES % (AUTO) 12.9 % (20.0-44.0); MEAN CORPUSCULAR HGB CONC 32 g/dl (31.0-36.0); MEAN CORPUSCULAR VOLUME 83 fL (80-96); MONOCYTES # (AUTO) 0.8 K/uL (0.1-1.30); MONOCYTES % (AUTO) 4.1 % (2.0-12.0); NEUTROPHILS # (AUTO) 7.5 K/uL (1.8-8.9); NEUTROPHILS % (AUTO) 37.4 % (43.0-81.0); PLATELET COUNT (AUTO) 290 K/uL (150-450); RED BLOOD CELL COUNT(AUTO) 3.82 MIL/uL (4.5-6.0); WHITE BLOOD COUNT (AUTO) 19.9 K/uL (4.3-11.0)
[2021-09-23 08:05] LABS: EOSINOPHILS % (AUTO) 44.9 % (0.0-6.0)
[2021-09-23 08:08] LABS: CALCIUM, SERUM 8.4 mg/dL (8.5-10.1); CREATININE 0.9 mg/dL (0.6-1.3); POTASSIUM 3.6 mmol/L (3.5-5.1)
[2021-09-23] MEDS: POTASSIUM CL. PREMIX PERIPHER. 50 ML IV SCH ×6 (08:42→16:59)
[2021-09-23] MEDS: SUCRALFATE 1 G/10 ML UDC GT SCH ×4 (08:43→20:34)
[2021-09-23] MEDS: ASPIRIN 81 MG TAB.CHEW GT SCH (08:43)
[2021-09-23] MEDS: hydrALAZINE HCL 25 MG TABLET GT SCH ×4 (08:43→20:35)
[2021-09-23] MEDS: METFORMIN 500 MG TABLET GT SCH ×2 (08:44→20:34)
[2021-09-23] MEDS: LEVETIRACETAM SOL (5 ML) 100 MG/ML UDC GT SCH ×2 (08:44→20:34)
[2021-09-23] MEDS: GLYCOPYRROLATE 1 MG TABLET GT SCH ×3 (08:44→17:21)
[2021-09-23] MEDS: AMLODIPINE BESYLATE 10 MG TABLET GT SCH (08:44)
[2021-09-23] MEDS: METOPROLOL TARTRATE 25 MG TABLET GT SCH ×4 (08:44→20:35)
[2021-09-23] MEDS: POLYETHYLENE GLYCOL 3350 17 GM POWD.PACK GT SCH ×2 (08:44→17:21)
[2021-09-23] MEDS: FERROUS SULFATE (325 MG) 325 MG/TAB TABLET GT SCH ×2 (08:44→17:21)
[2021-09-23] MEDS: CHLORHEXIDINE GLUCONATE 15 ML UDC MM SCH ×2 (08:45→17:22)
[2021-09-23] MEDS: ACETAMINOPHEN 650 MG/20.3 ML UDC GT SCH (08:45)
[2021-09-23] MEDS: PANTOPRAZOLE 40 MG/PACK PACK GT SCH ×2 (08:45→17:21)
[2021-09-23] MEDS: ASCORBIC ACID 500 MG TABLET GT SCH ×2 (08:45→17:22)
[2021-09-23] MEDS: VANCOMYCIN 1 GM in IV D5W 250ml IV SCH ×2 (08:46→21:32)
[2021-09-23] MEDS: ENOXAPARIN SODIUM 40 MG/0.4 ML DISP.SYRIN SQ SCH (08:48)
[2021-09-23] MEDS: PROSOURCE / PROSTAT (PYXIS) 30 ML UDC GT SCH ×3 (08:49→17:23)
[2021-09-23] MEDS: Z GUARD REMEDY 2 OZ OINT TP SCH (08:49)
[2021-09-23 10:17] LABS: EOSINOPHILS % (MANUAL) 45 % (0-4); LYMPHOCYTES % (MANUAL) 11 % (16-48); MONOCYTES % (MANUAL) 4 % (0-11.0); NEUTROPHILS % (MANUAL) 40 (42-76)
--- NOTE | 2021-09-23 10:48 | NUR ---
RN NOTE DAUGHTER REQUESTED FOR MD TO CONTACT HER. CONTACT INFO: ОЛЕГ, . CONTACTED [facility] AND LEFT MESSAGE FOR DR VEGA TO CALL DTR. WILL CONTINUE TO MONITOR.
[2021-09-23] MEDS: INSULIN REGULAR, HUMAN 100 UNIT/ML 3 ML VIAL SQ PRN ×2 (13:15→17:24)
[2021-09-23 16:00] VITALS: BP 159/111
--- NOTE | 2021-09-23 18:06 | NUR ---
RN CLOSING NOTE PT RESTING IN BED. T PIECE PRESENT WITH 5 LPM COOL AEROSOL. NO RESPIRATORY DISTRESS. NONVERBAL, BUT RESPONDS WITH OPEN EYES. NO OBSTETRICAL ANESTHESIOLOGIST. NO EDEMA PRESENT. F/C PRESENT AND DRAINS WELL. BEDBOUND WITH DIAPER PRESENT. GENERALIZED RASH PRESENT. SKIN IS INTACT. G/T PRESENT WITH GLUCERNA 1.2 RUNNING AT 80 ML/HR. IV PRESENT ON L HAND 18G WITH NS RUNNING AT 100 ML/HR. IV PRESENT ON R HAND 20G AND FLUSHES WELL. LABS AND ORDERS REVIEWED. SAFETY MEASURES IN PLACE. SIDE RAILS RAISED. BED LOWERED. CALL LIGHT WITHIN REACH. WILL GIVE REPORT TO NIGHT NURSE FOR SELMA.
--- NOTE | 2021-09-23 19:30 | NUR ---
RN OPENING NOTE PATIENT IN BED, PATIENT IS NON VERBAL BUT ABLE TO OPEN EYES. BROTHER AT BEDSIDE. PATIENT HAS A TRACH PRESENT CONNECTED TO A T PIECE. PATIENT IS RECEIVING 5 LPM WITH COOL AEROSOL. PATIENT DOES NOT HAVE ANY RESPIRATORY DISTRESS NOTED. PATIENT HAS A RENDON CATHETER IN PLACE, DRAINING CLOUDY URINE. G TUBE IN PLACE, GLUCERNA 1.2 AT 80 CC/HR. RESIDUAL 10 CC, ASPIRATED RESIDUAL IS 20 CC, FLUSHED BACK. PATIENT HAS A L HAND 18 G WITH NS@100 ML/HR AND A R HAND G20, SALINE LOCKED. BOTH PATENT AND INTACT. SAFETY MEASURES IN PLACE: BED LOCKED AND IN LOWEST POSITION CALL LIGHT WITHIN REACH, SIDE RAILS UP, HOB ELEVATED, ESBL CONTACT PRECAUTIONS ON. WILL MONITOR PATIENT CLOSELY.
--- NOTE | 2021-09-23 19:35 | NUR ---
RT NOTE PT RECEIVED TRACHED ON COOL AEROSOL @ 28%. 6 DCFS TRACH. SUCTION DONE. NO S/S OF RESPIRATORY DISTRESS NOTED. CONT. PULSE OX CONNECTED. WILL CONTINUE TO MONITOR T/O SHIFT. FAMILY AT BEDSIDE
--- NOTE | 2021-09-23 22:00 | NUR ---
BS 140, 2 UNITS REGULAR INSULIN COVERAGE GIVEN
[2021-09-23] MEDS: *INSULIN REGULAR(HUMULIN R)HUM 100 UNIT/ML VIAL SQ PRN (22:10)
[2021-09-23] MEDS: INSULIN GLARGINE, 100 UNIT/ML CARTRIDGE SQ SCH (22:11)
--- NOTE | 2021-09-23 22:15 | NUR ---
RN NOTE PATIENT GIVEN HYDRALAZINE 10 MG IV FOR BP OF 191/85. THIS IS ONE HOUR AFTER BEING GIVEN SCHEDULED METOPROLOL AND HYDRALAZINE WITH BP 190/90. WILL RECHECK IN AN HOUR BS 140 MG/DL. LANTUS AND 2 UNITS REGULAR INSULIN GIVEN. WILL MONITOR FOR HYPOGLYCEMIA.
[2021-09-23 23:30] VITALS: BP 139/79
--- NOTE | 2021-09-24 00:50 | NUR ---
RN OPENING NOTE PATIENT IN BED, PATIENT IS NON VERBAL BUT ABLE TO OPEN EYES. PATIENT HAS A TRACH PRESENT CONNECTED TO A T PIECE. PATIENT IS RECEIVING 5 LPM WITH COOL AEROSOL. PATIENT DOES NOT HAVE ANY RESPIRATORY DISTRESS NOTED. PATIENT HAS A RENDON CATHETER IN PLACE, DRAINING CLOUDY URINE. G TUBE IN PLACE, GLUCERNA 1.2 AT 80 CC/HR. RESIDUAL 10 CC, ASPIRATED RESIDUAL IS 20 CC, FLUSHED BACK. PATIENT HAS A L HAND 18 G WITH NS@100 ML/HR AND A R HAND G20, SALINE LOCKED. BOTH PATENT AND INTACT. SAFETY MEASURES IN PLACE: BED LOCKED AND IN LOWEST POSITION CALL LIGHT WITHIN REACH, SIDE RAILS UP, HOB ELEVATED, ESBL CONTACT PRECAUTIONS ON. WILL MONITOR PATIENT CLOSELY. Addendum: 09/24/21 at 0056 by DARLINE OSPINA RN WRONG TIME DOCUMENT
[2021-09-24] MEDS: MEROPENEM 500 MG in IV NS 0.9% 100 ML IV SCH ×3 (04:38→22:36)
[2021-09-24] MEDS: IV NS 0.9% 1,000 ML IV PRN (04:39)
[2021-09-24] MEDS: INSULIN REGULAR, HUMAN 100 UNIT/ML 3 ML VIAL SQ PRN ×3 (06:19→18:37)
--- NOTE | 2021-09-24 06:30 | NUR ---
BS 143, 2 UNITS REGULAR INSULIN GIVEN.
[2021-09-24] MEDS: BLOOD SUGAR DIAGNOSTIC 1 EACH STRIP VI SCH ×4 (06:52→23:26)
[2021-09-24 06:53] LABS: BASOPHILS # (AUTO) 0.1 K/uL (0.0-0.2); BASOPHILS % (AUTO) 0.7 % (0.0-2.0); HEMATOCRIT 33 % (39-51); HEMOGLOBIN 10.6 g/dL (13.5-17.5); LYMPHOCYTES # (AUTO) 2.4 K/uL (0.8-4.8); LYMPHOCYTES % (AUTO) 12.9 % (20.0-44.0); MEAN CORPUSCULAR HGB CONC 32 g/dl (31.0-36.0); MEAN CORPUSCULAR VOLUME 82 fL (80-96); MONOCYTES # (AUTO) 0.8 K/uL (0.1-1.30); MONOCYTES % (AUTO) 4.5 % (2.0-12.0); NEUTROPHILS # (AUTO) 6.5 K/uL (1.8-8.9); NEUTROPHILS % (AUTO) 34.9 % (43.0-81.0); PLATELET COUNT (AUTO) 272 K/uL (150-450); RED BLOOD CELL COUNT(AUTO) 3.98 MIL/uL (4.5-6.0); WHITE BLOOD COUNT (AUTO) 18.7 K/uL (4.3-11.0)
--- NOTE | 2021-09-24 07:07 | NUR ---
RN CLOSING NOTE PATIENT IN BED, PATIENT IS NON VERBAL BUT ABLE TO OPEN EYES. PATIENT HAS A TRACH PRESENT CONNECTED TO A T PIECE. PATIENT IS RECEIVING 5 LPM WITH COOL AEROSOL. PATIENT DOES NOT HAVE ANY RESPIRATORY DISTRESS NOTED. PATIENT HAS A RENDON CATHETER IN PLACE, DRAINING CLOUDY URINE. G TUBE IN PLACE, GLUCERNA 1.2 AT 80 CC/HR. OFF AT THIS TIME WILL BE TURNED ON AT 0900. PATIENT HAS A L HAND 18 G WITH NS@100 ML/HR AND A R HAND G20, SALINE LOCKED. BOTH PATENT AND INTACT. SAFETY MEASURES IN PLACE: BED LOCKED AND IN LOWEST POSITION CALL LIGHT WITHIN REACH, SIDE RAILS UP, HOB ELEVATED, ESBL CONTACT PRECAUTIONS ON. WILL ENDORSE TO DAY SHIFT NURSE FOR SELMA.
[2021-09-24 07:22] LABS: CALCIUM, SERUM 8.2 mg/dL (8.5-10.1); CREATININE 0.8 mg/dL (0.6-1.3); POTASSIUM 3.8 mmol/L (3.5-5.1)
--- NOTE | 2021-09-24 07:30 | NUR ---
received pt. in am alert and oriented x0non verbal,opens eyes.trach in place. on cont. pulse ox.iv and tube feeding infusing.side rails up.f/c to gravity drainage with good output.
[2021-09-24 08:00] VITALS: BP 141/89
[2021-09-24] MEDS: GLUCERNA 1.2 1,000 ML BOTTLE GT PRN (10:36)
[2021-09-24] MEDS: PROSOURCE / PROSTAT (PYXIS) 30 ML UDC GT SCH (10:41)
[2021-09-24] MEDS: METOPROLOL TARTRATE 25 MG TABLET GT SCH ×4 (10:42→21:26)
[2021-09-24] MEDS: CHLORHEXIDINE GLUCONATE 15 ML UDC MM SCH ×2 (10:43→18:23)
[2021-09-24] MEDS: POLYETHYLENE GLYCOL 3350 17 GM POWD.PACK GT SCH ×2 (10:43→18:21)
[2021-09-24] MEDS: ASPIRIN 81 MG TAB.CHEW GT SCH (10:43)
[2021-09-24] MEDS: METFORMIN 500 MG TABLET GT SCH ×2 (10:43→21:26)
[2021-09-24] MEDS: FERROUS SULFATE (325 MG) 325 MG/TAB TABLET GT SCH ×2 (10:43→18:22)
[2021-09-24] MEDS: LEVETIRACETAM SOL (5 ML) 100 MG/ML UDC GT SCH ×2 (10:43→21:26)
[2021-09-24] MEDS: GLYCOPYRROLATE 1 MG TABLET GT SCH ×3 (10:44→18:20)
[2021-09-24] MEDS: AMLODIPINE BESYLATE 10 MG TABLET GT SCH (10:44)
[2021-09-24] MEDS: PANTOPRAZOLE 40 MG/PACK PACK GT SCH ×2 (10:44→18:20)
[2021-09-24] MEDS: ASCORBIC ACID 500 MG TABLET GT SCH ×2 (10:44→18:21)
[2021-09-24] MEDS: ENOXAPARIN SODIUM 40 MG/0.4 ML DISP.SYRIN SQ SCH (10:47)
[2021-09-24] MEDS: ACETAMINOPHEN 650 MG/20.3 ML UDC GT SCH (10:49)
[2021-09-24] MEDS: VANCOMYCIN 1 GM in IV D5W 250ml IV SCH ×2 (10:50→21:30)
[2021-09-24] MEDS: hydrALAZINE HCL 25 MG TABLET GT SCH ×4 (11:13→21:26)
[2021-09-24] MEDS: SUCRALFATE 1 G/10 ML UDC GT SCH ×4 (11:55→21:25)
[2021-09-24] MEDS: Z GUARD REMEDY 2 OZ OINT TP PRN (11:55)
--- NOTE | 2021-09-24 12:30 | NUR ---
midline rn in and midline inserted jemal #[id number]. pt. tolerated well.
[2021-09-24] MEDS: Z GUARD REMEDY 2 OZ OINT TP SCH (12:57)
[2021-09-24] MEDS: *INSULIN REGULAR(HUMULIN R)HUM 100 UNIT/ML VIAL SQ PRN ×2 (13:36→23:30)
[2021-09-24 15:16] LABS: EOSINOPHILS % (MANUAL) 41 % (0-4); LYMPHOCYTES % (MANUAL) 15 % (16-48); MONOCYTES % (MANUAL) 5 % (0-11.0); NEUTROPHILS % (MANUAL) 39 (42-76)
[2021-09-24 16:00] VITALS: BP 187/96
--- NOTE | 2021-09-24 18:00 | NUR ---
no change in status.
--- NOTE | 2021-09-24 19:35 | NUR ---
MS/RN OPENING NOTE RECEIVED PATIENT RESTING IN BED. AWAKE, NON-VERBAL, ABLE TO OPEN EYES. NO S/SX OF PAIN NOTED AT THIS TIME. CONTINUES ON O2 5L VIA T-PIECE WITH NO S/SX OF RESPIRATORY DISTRESS NOTED. CONTINUOUS O2 MONITORING IN PLACE. IV ACCESS TO RIGHT UPPER ARM MIDLINE #18G INTACT AND PATENT. CONTINUES ON IVF NS 0.9% @ 100ML/HR. CONTINUES ON IV ABX. IV ACCESS TO RIGHT HAND 20G AND LEFT HAND 18G BOTH INTACT, PATENT AND SALINE LOCKED. CONTINUES ON G-TUBE FEED GLUCERNA 1.2 @ 80ML/HR WITH NO RESIDUAL NOTED AT THIS TIME. CALL LIGHT WITHIN REACH. ASPIRATION, FALL AND SAFETY PRECAUTIONS MAINTAINED. WILL CONTINUE TO MONITOR.
[2021-09-24 20:00] VITALS: BP 109/80
[2021-09-24] MEDS ORDERED: IVERMECTIN 3 MG TABLET PO ONE (22:30)
[2021-09-24] MEDS ORDERED: PERMETHRIN 5% CRM 60 GM TUBE TP ONE (22:30)
[2021-09-24] MEDS ORDERED: DOSING PER PHARMACY-AMIKACI IV XX PRN (22:30)
[2021-09-24] MEDS: INSULIN GLARGINE, 100 UNIT/ML CARTRIDGE SQ SCH (23:28)
[2021-09-24] MEDS ORDERED: AMIKACIN 500 MG in IV D5W 100 ML IV ONE (23:30)
[2021-09-25] MEDS ORDERED: PERMETHRIN 5% CRM 60 GM TUBE TP ONE (00:10)
--- NOTE | 2021-09-25 00:17 | NUR ---
MS/RN NOTE INFECTIOUS DISEASE MD IN [facility] WITH NEW ORDERS PLACED. NOTIFIED NURSING ACCOUNTANT PROPERTY FOR MEDICATIONS. IVERMECTIN 12MG PO UNAVAILABLE AT THIS TIME. WILL RELAY TO AM RN.
[2021-09-25] MEDS ORDERED: AMIKACIN 250 MG/ML VIAL ONE (01:25)
[2021-09-25] MEDS: GLUCERNA 1.2 1,000 ML BOTTLE GT PRN (01:28)
[2021-09-25] MEDS: IV NS 0.9% 1,000 ML IV PRN (02:47)
[2021-09-25] MEDS: MEROPENEM 500 MG in IV NS 0.9% 100 ML IV SCH ×2 (05:21→13:27)
--- NOTE | 2021-09-25 06:30 | NUR ---
MS/RN CLOSING NOTE PATIENT CURRENTLY RESTING IN BED. NON-VERBAL, ABLE TO OPEN EYES. NO S/SX OF PAIN NOTED AT THIS TIME. CONTINUES ON O2 5L VIA T-PIECE WITH NO S/SX OF RESPIRATORY DISTRESS NOTED. CONTINUOUS O2 MONITORING IN PLACE. IV ACCESS TO RIGHT UPPER ARM MIDLINE #18G INTACT AND PATENT. CONTINUES ON IVF NS 0.9% @ 100ML/HR. CONTINUES ON IV ABX. IV ACCESS TO LEFT HAND 18G INTACT, PATENT AND SALINE LOCKED. CONTINUES ON G-TUBE FEED GLUCERNA 1.2 @ 80ML/HR WITH NO RESIDUAL NOTED AT THIS TIME. CALL LIGHT WITHIN REACH. ASPIRATION, FALL AND SAFETY PRECAUTIONS MAINTAINED. WILL ENDORSE PLAN OF CARE TO ONCOMING SHIFT.
[2021-09-25] MEDS: BLOOD SUGAR DIAGNOSTIC 1 EACH STRIP VI SCH ×2 (06:46→12:44)
[2021-09-25 06:48] LABS: CALCIUM, SERUM 8.5 mg/dL (8.5-10.1); CREATININE 0.8 mg/dL (0.6-1.3)
--- NOTE | 2021-09-25 07:35 | NUR ---
MS RN OPENING NOTE PATIENT IN BED, SLEEPING. NON-VERBAL, ABLE TO OPEN EYES. CONTINUES ON O2 5L VIA T-PIECE WITH NO S/SX OF RESPIRATORY DISTRESS NOTED. IV ACCESS TO RIGHT UPPER ARM MIDLINE #18G INTACT AND PATENT. IV ACCESS TO LEFT HAND #18G NS RUNNING AT 100ML/HR, INTACT AND PATENT. CONTINUES ON IV ANTIBIOTICS. ON G-TUBE FEEDING GLUCERNA 1.2 @ 80ML/HR. ASPIRATION, FALL AND SAFETY PRECAUTIONS MAINTAINED. WILL CONTINUE TO MONITOR.
[2021-09-25 08:00] VITALS: BP 175/87
[2021-09-25] MEDS ORDERED: LORATADINE 10 MG TABLET PO SCH (09:00)
[2021-09-25] MEDS: Z GUARD REMEDY 2 OZ OINT TP SCH (09:00)
[2021-09-25] MEDS: POLYETHYLENE GLYCOL 3350 17 GM POWD.PACK GT SCH (09:28)
[2021-09-25] MEDS: ASPIRIN 81 MG TAB.CHEW GT SCH (09:29)
[2021-09-25] MEDS: FERROUS SULFATE (325 MG) 325 MG/TAB TABLET GT SCH (09:29)
[2021-09-25] MEDS: ASCORBIC ACID 500 MG TABLET GT SCH (09:29)
[2021-09-25] MEDS: SUCRALFATE 1 G/10 ML UDC GT SCH ×2 (09:29→13:13)
[2021-09-25] MEDS: METFORMIN 500 MG TABLET GT SCH (09:29)
[2021-09-25] MEDS: CHLORHEXIDINE GLUCONATE 15 ML UDC MM SCH (09:29)
[2021-09-25] MEDS: PANTOPRAZOLE 40 MG/PACK PACK GT SCH (09:29)
[2021-09-25] MEDS: LEVETIRACETAM SOL (5 ML) 100 MG/ML UDC GT SCH (09:29)
[2021-09-25] MEDS: hydrALAZINE HCL 25 MG TABLET GT SCH ×2 (09:30→13:26)
[2021-09-25] MEDS: GLYCOPYRROLATE 1 MG TABLET GT SCH ×2 (09:30→13:13)
[2021-09-25] MEDS: METOPROLOL TARTRATE 25 MG TABLET GT SCH ×2 (09:31→13:26)
[2021-09-25] MEDS: AMLODIPINE BESYLATE 10 MG TABLET GT SCH (09:32)
[2021-09-25] MEDS: ACETAMINOPHEN 650 MG/20.3 ML UDC GT SCH (09:37)
[2021-09-25] MEDS: ENOXAPARIN SODIUM 40 MG/0.4 ML DISP.SYRIN SQ SCH (10:20)
[2021-09-25] MEDS: Z GUARD REMEDY 2 OZ OINT TP PRN (10:26)
[2021-09-25] MEDS ORDERED: AMIKACIN 500 MG in IV D5W 100 ML IV SCH (12:00)
[2021-09-25 13:26] VITALS: BP 127/64
[2021-09-25 15:27] LABS: BASOPHILS # (AUTO) 0.2 K/uL (0.0-0.2); BASOPHILS % (AUTO) 1.1 % (0.0-2.0); HEMATOCRIT 31 % (39-51); HEMOGLOBIN 10.3 g/dL (13.5-17.5); LYMPHOCYTES # (AUTO) 2.7 K/uL (0.8-4.8); MEAN CORPUSCULAR HGB CONC 33 g/dl (31.0-36.0); MEAN CORPUSCULAR VOLUME 81 fL (80-96); MONOCYTES # (AUTO) 0.7 K/uL (0.1-1.30); MONOCYTES % (AUTO) 3.8 % (2.0-12.0); NEUTROPHILS # (AUTO) 6.1 K/uL (1.8-8.9); NEUTROPHILS % (AUTO) 33.9 % (43.0-81.0); PLATELET COUNT (AUTO) 253 K/uL (150-450); RED BLOOD CELL COUNT(AUTO) 3.87 MIL/uL (4.5-6.0); WHITE BLOOD COUNT (AUTO) 17.9 K/uL (4.3-11.0)
[2021-09-25 15:34] LABS: EOSINOPHILS % (AUTO) 46.2 % (0.0-6.0)
[2021-09-25 15:53] LABS: LYMPHOCYTES % (MANUAL) 15 % (16-48); MONOCYTES % (MANUAL) 3 % (0-11.0); NEUTROPHILS % (MANUAL) 31 (42-76)
[2021-09-25 15:54] LABS: EOSINOPHILS % (MANUAL) 51 % (0-4)
--- NOTE | 2021-09-25 16:05 | NUR ---
DISCHARGE NOTE RECEIVED ORDER FOR DISCHARGE. PATIENT IS NON-VERBAL BUT OPENS EYES. ON O2 @ 5L T-PIECE. NO S/SX OF DISTRESS NOTED. IV ACCESS ON ANA MIDLINE #18 AND LEFT HAND #18 BOTH INTACT AND PATENT. G-TUBE SITE IS C/D/I. RENDON CATHETER INTACT WITH NO SX OF INFILTRATIONS. REPORT GIVEN TO [facility] BARB CONGREGATE FOR SELMA. REPORT GIVEN TO EMT WELL. DISCHARGE INSTRUCTIONS AND EXITCARE FOLDER GIVEN TO EMT. PATIENT LEFT IN STABLE CONDITION VIA ROMAHA WITH 2 ROLL DOUGH DIVIDER. Addendum: 09/25/21 at 1836 by ELOINA CORTEZ RN PATIENT FIGHTING NURSE WHEN TRYING TO TAKE DC PHOTOS.
== END 2021-09-25 16:20 | DRG 720 ==
LOC: ER 16:02 → TELE1 19:47 → MEDSG1 09-17 09:22 → MED 09-19 16:12
PROVIDERS: ADMIT Registered Nurse; ATTEND Internal Medicine
PROC: 05H533Z Insertion of Infusion Device into Right Subclavian Vein, Percutaneous Approach (ICD-10-PCS; principal; 2021-09-24)
PROC: B546ZZA Ultrasonography of Right Subclavian Vein, Guidance (ICD-10-PCS; 2021-09-24)
DX: A41.9 Sepsis, unspecified organism (principal); J96.20 Acute and chronic respiratory failure, unspecified whether with hypoxia or hypercapnia; N17.0 Acute kidney failure with tubular necrosis; G92.8 Other toxic encephalopathy; J15.9 Unspecified bacterial pneumonia; D72.10 Eosinophilia, unspecified; D63.8 Anemia in other chronic diseases classified elsewhere; E86.0 Dehydration; I69.354 Hemiplegia and hemiparesis following cerebral infarction affecting left non-dominant side; Z93.0 Tracheostomy status; E11.9 Type 2 diabetes mellitus without complications; I10 Essential (primary) hypertension; N39.0 Urinary tract infection, site not specified; Z79.84 Long term (current) use of oral hypoglycemic drugs; B86 Scabies; E87.6 Hypokalemia; R13.10 Dysphagia, unspecified; Z16.12 Extended spectrum beta lactamase (ESBL) resistance; Z79.4 Long term (current) use of insulin; Z79.82 Long term (current) use of aspirin; E78.5 Hyperlipidemia, unspecified; Z79.899 Other long term (current) drug therapy; Z93.1 Gastrostomy status; Z20.822 Contact with and (suspected) exposure to COVID-19; B96.1 Klebsiella pneumoniae [K. pneumoniae] as the cause of diseases classified elsewhere
CPT/HCPCS: 31720; 36415; 71045-TC; 80048-TC; 80053-TC; 80061-TC; 80076-TC; 80177; 80202-TC; 81001; 82962-TC; 83605-TC; 83735-TC; 84100-TC; 84484-TC; 85025-TC; 85730-TC; 87040-TC; 87070-TC; 87081-TC; 87086-TC; 87186-TC; 94640-TC; 94760-TC; 94762-TC; 94799-TC; A4217; A4623; A7526; G0378; J0278; J0360; J0696; J1650; J1815; J1953; J2185; J2270; J3370; J3480; J3490; J7030; J7050; J7060; U0003

== ENCOUNTER 2021-12-12 20:19 | Inpatient (IN) | payer MEDICAID ==
[~2021-12-12] VITALS: Ht 167.6 cm; Wt 68.5 kg
[~2021-12-12 20:19] MED LIST changes: +HYDR-4076 GT; +MAGN400O6 GT; +MENT113O TD; -OM3/1CAP3 GT; +ONDA4TAB5 GT; -RXGEN XX
--- NOTE | 2021-12-12 20:28 | NUR ---
PT [id number] FROM [facility] REPORTED DESAT IN 79%. 98% AFTER SUCTIONING. NOTED TACHY @ 120 RECTAL TEMP 103.0. PT NONVERBAL. TOLERATING O2 TRACH VIA 5LPM AT 100%. TOLERATING WELL. CONNECTED PT TO POX AND MONITOR
[2021-12-12] MEDS ORDERED: ACETAMINOPHEN ES 500 MG TABLET ONE (20:35)
[2021-12-12] MEDS ORDERED: CEFTAZIDIME 1 G in IV D5W 50 ML IV ONE (21:00)
[2021-12-12] MEDS ORDERED: ACETAMINOPHEN ES 500 MG TABLET PO ONE (21:00)
[2021-12-12] MEDS ORDERED: IV NS 0.9% 1,000 ML BAG IV ONE (21:00)
--- NOTE | 2021-12-12 21:03 | NUR ---
R WRIST #20G S/L PATENT AND INTACT. BLOOD COLLECTED AND SENT TO LAB
--- NOTE | 2021-12-12 21:04 | NUR ---
CENTRIFUGAL MACHINE TENDER AT PT'S BEDSIDE
[2021-12-12] MEDS ORDERED: CEFTAZIDIME 1 G VIAL ONE (21:13)
[2021-12-12 21:33] LABS: ABG BASE EXCESS 2.3 mmol/L; ABG PCO2 41.8 mmHg (35.0-45.0); ABG PH 7.426 (7.350-7.450); ABG PO2 135.9 mmHg (75.0-100.0); COHb 0.2 % (0.5-1.5); MetHb 0.4 % (0.0-1.5); O2Hb 97.8 % (94.0-97.0); SITE, ABG Right Brachial
--- NOTE | 2021-12-12 21:38 | NUR ---
PT ON T-PIECE @ 5LPM; ABG DRAWN AT 2120 BY BHUMIKA AND YAMEL DE LA CRUZ NOTIFIED. POC BS CHECK 490; YAMEL DE LA CRUZ NOTIFIED COVID ANTIGEN, COVID PCR, AND INFLUENZA SWAB COLLECTED AND SENT TO LAB.
--- NOTE | 2021-12-12 22:03 | NUR ---
MID LINE NURSE AT BEDSIDE ANA 18G
--- NOTE | 2021-12-12 22:08 | NUR ---
ANA MIDLINE #18G S/L INSERTED BY YOSELYN MCARTHUR; PATENT AND INTACT.
[2021-12-12 22:12] LABS: BASOPHILS # (AUTO) 0.1 K/uL (0.0-0.2); BASOPHILS % (AUTO) 0.4 % (0.0-2.0); HEMATOCRIT 29 % (39-51); HEMOGLOBIN 8.9 g/dL (13.5-17.5); LYMPHOCYTES # (AUTO) 3.3 K/uL (0.8-4.8); LYMPHOCYTES % (AUTO) 19.4 % (20.0-44.0); MEAN CORPUSCULAR HGB CONC 31 g/dl (31.0-36.0); MEAN CORPUSCULAR VOLUME 80 fL (80-96); MONOCYTES # (AUTO) 0.7 K/uL (0.1-1.30); MONOCYTES % (AUTO) 4.3 % (2.0-12.0); NEUTROPHILS # (AUTO) 13.1 K/uL (1.8-8.9); NEUTROPHILS % (AUTO) 75.9 % (43.0-81.0); PLATELET COUNT (AUTO) 193 K/uL (150-450); RED BLOOD CELL COUNT(AUTO) 3.57 MIL/uL (4.5-6.0); WHITE BLOOD COUNT (AUTO) 17.2 K/uL (4.3-11.0)
--- NOTE | 2021-12-12 22:22 | NUR ---
EMELINA DTR [phone]
[2021-12-12 22:24] LABS: BILIRUBIN,URINE NEGATIVE (NEGATIVE); COLOR,URINE YELLOW (YELLOW); LEUKOCYTE ESTERASE ,URINE MODERATE (NEGATIVE); NITRITE, URINE NEGATIVE (NEGATIVE); PROTEIN,URINE 100 mg/dl (NEGATIVE); UGLUCOSE 250 MG/DL mg/dL (NEGATIVE); UROBILINOGEN,URINE 0.2 EU/dL (0.2)
[2021-12-12 22:53] LABS: ALANINE AMINOTRANSFERASE 86 U/L (12-78); ALBUMIN 2.5 g/dL (3.4-5.0); ALKALINE PHOSPHATASE 52 U/L (46-116); BILIRUBIN,DIRECT 0.1 mg/dL (0.0-0.2); BILIRUBIN,TOTAL 0.3 mg/dL (0.2-1.0); CALCIUM, SERUM 9.7 mg/dL (8.5-10.1); CARBON DIOXIDE 26 mmol/L (21-32); CHLORIDE 99 mmol/L (98-107); CREATININE 4.1 mg/dL (0.6-1.3); POTASSIUM 4.2 mmol/L (3.5-5.1); SODIUM SERUM 141 mmol/L (136-145); TOTAL PROTEIN, SERUM 7.8 g/dL (6.4-8.2)
[2021-12-12] MEDS ORDERED: AZITHROMYCIN 500 MG in IV D5W 250 ML IV ONE (23:00)
[2021-12-12] MEDS ORDERED: CEFTRIAXONE 1GM BAG (ER ONLY) 1 GM/50 ML PIGGYBACK IV ONE (23:00)
[2021-12-12 23:06] LABS: BACTERIA,URINE Many /HPF (None Seen); RBC,URINE 21-50 /HPF (0-2); WBC,URINE 21-50 /HPF (0-3)
[2021-12-12 23:07] LABS: CALCIUM OXALATE CRYSTALS,UR Moderate /HPF (None Seen); SQUAMOUS EPITHELIAL CELL,UR Few /HPF (None Seen); URINE AMORPHOUS URATE Moderate /HPF (None Seen); YEAST,URINE Many /HPF (None Seen)
[2021-12-12] MEDS ORDERED: AZITHROMYCIN 500 MG VIAL ONE (23:09)
[2021-12-12 23:12] LABS: GLUCOSE 558 mg/dL (74-106)
--- NOTE | 2021-12-12 23:12 | NUR ---
GLUCOSE 558, BUN 130,
[2021-12-12 23:13] LABS: UREA NITROGEN, BLOOD 130 mg/dL (7-18)
--- NOTE | 2021-12-12 23:46 | NUR ---
S/P TYLENOL . RECTAL TEMP RECHECK: 102.3. COOLING MEASURES CONTINUED.
--- NOTE | 2021-12-12 23:55 | NUR ---
POC BG [id number]
[2021-12-13] MEDS ORDERED: INSULIN REGULAR, HUMAN 100 UNIT/ML 10 ML VIAL IV ONE
[2021-12-13 00:01] LABS: ASPARTATE AMINOTRANSFERASE 100 U/L (15-37)
--- NOTE | 2021-12-13 00:35 | NUR ---
LACTIC ACID: [id number]
--- NOTE | 2021-12-13 01:28 | NUR ---
room [id number]
[2021-12-13] MEDS ORDERED: MAGNESIUM HYDROXIDE 30 ML UDC PO PRN ×2 (01:30→02:30)
[2021-12-13] MEDS ORDERED: INSULIN REGULAR, HUMAN 100 UNIT/ML 3 ML VIAL SQ PRN (01:30)
[2021-12-13] MEDS ORDERED: Z GUARD REMEDY 4 OZ OINT TP PRN ×2 (01:30→02:30)
[2021-12-13] MEDS ORDERED: *INSULIN REGULAR(HUMULIN R)HUM 100 UNIT/ML VIAL SQ PRN (01:30)
[2021-12-13] MEDS ORDERED: ONDANSETRON HCL/PF 4 MG/2 ML VIAL IVP PRN ×2 (01:30→02:30)
[2021-12-13] MEDS ORDERED: DEXTROSE 50%-WATER 50 ML DISP.SYRIN IV PRN ×2 (01:30→02:30)
[2021-12-13] MEDS ORDERED: MAG HYDROX/AL HYDROX/SIMETH 30 ML UDC PO PRN ×2 (01:30→02:30)
[2021-12-13] MEDS ORDERED: ACETAMINOPHEN 325 MG TABLET PO PRN (01:30)
--- NOTE | 2021-12-13 02:06 | NUR ---
RN NOTE GOT REPORT FROM LAILA FELTON FOR PATIENT TRANSFER TO [facility] PATIENT.
--- NOTE | 2021-12-13 02:11 | NUR ---
REPORT GIVEN TO MARINE RN [facility] FOR SELMA
--- NOTE | 2021-12-13 02:15 | NUR ---
RN NOTE PATIENT ARRIVED TO UNIT AT 0215 FROM ER ON A GURNEY. PATIENT A/O X 1. NON RESPONSIVE AND UNABLE TO COMMUNICATE AT ALL. IV NOTED ON (R) WRIST 20G IV LINE, ANA MIDLINE 18G , BOTH INTACT AND FLUSHING WELL. PATIENT WITH T- PIECE TRACH , SATURATING AT 97%. WITH 2L. RENDON CATHETER NOTED, DRAINING YELLOW URINE. ALL ISOLATION PRECAUTIONS TAKEN FOR PATIENT. PATIENT HAS TWO MINOR SCABS ON THE LEFT LEG, PICTURES TAKEN. WILL CONTINUE PLAN FOR CARE FOR PATIENT DIRECTED.
--- NOTE | 2021-12-13 02:15 | NUR ---
PATIENT VITALS TEMP 98.1, 109HR, 22RR, 106/57, SATURATING 97% AND ABOVE - ON T- PIECE TRACH ON 2 L .
--- NOTE | 2021-12-13 02:20 | NUR ---
PT TRANSFERRED TO [facility] VIA ACLS PROTCOL. ALL BELONINGS WITH PT. VSS TOLERATING 5LPM WELL AT 100%
[2021-12-13 04:00] VITALS: BP 106/57
--- NOTE | 2021-12-13 06:36 | NUR ---
RN CLOSING NOTE PATIENT REMAINED STABLE THROUGHOUT THE NIGHT. KEPT PATIENT DRY AND CLEAN. ALL PHOTOS TAKEN, ON LEFT LOWER LEG, AND LEFT UPPER THIGH. WILL ENDORSE PLAN OF CARE TO AM ONCOMING AM NURSE.
[2021-12-13] MEDS ORDERED: BLOOD SUGAR DIAGNOSTIC 1 EACH STRIP VI SCH (07:30)
[2021-12-13] MEDS ORDERED: OMEP1CAP2 GT (07:36)
[2021-12-13] MEDS ORDERED: DOCU-141 GT (07:36)
[2021-12-13] MEDS: BLOOD SUGAR DIAGNOSTIC 1 EACH STRIP VI SCH ×4 (07:55→21:39)
--- NOTE | 2021-12-13 08:58 | NUR ---
WOUND CARE CONSULT: REVIEWED CHART, NURSING DOCUMENTATION AND PHOTOS WHICH INDICATE SCARRING/DISCOLORATION TO LEFT UPPER AND LOWER LEG, PRESENT ON ADMISSION. PT ALSO KNOWN TO HAVE HISTORY OF SACRAL SCARRING. RECOMMENDATIONS MADE FOR SKIN PROTECTION. DISCUSSED WITH NURSING STAFF. IN AGREEMENT WITH PLAN OF CARE. YOUNGYER ISOFLEX LOW AIRLOSS BED TO BE PLACED.
[2021-12-13] MEDS ORDERED: Medication Not On Formulary EA (Ipratropium/Albuterol Sulfate (Duoneb 2.5-0.5 Mg/3 Ml So IH PRN (09:00)
[2021-12-13] MEDS ORDERED: Medication Not On Formulary EA (Ondansetron Hcl (Zofran) 4 MG) GT PRN (09:00)
[2021-12-13] MEDS ORDERED: METFORMIN 500 MG TABLET GT SCH (09:00)
[2021-12-13] MEDS ORDERED: FAMOTIDINE (20 MG) 20 MG TABLET PO SCH (09:00)
[2021-12-13] MEDS ORDERED: Medication Not On Formulary EA (Cranberry Extract (Cranberry) 500 MG) GT SCH (09:00)
[2021-12-13] MEDS ORDERED: MAGNESIUM HYDROXIDE 30 ML UDC GT PRN (09:00)
[2021-12-13] MEDS ORDERED: ACETAMINOPHEN 325 MG TABLET MC PRN (09:00)
[2021-12-13] MEDS ORDERED: ENOXAPARIN SODIUM 30 MG/0.3 ML DISP.SYRIN SQ SCH (09:00)
[2021-12-13] MEDS ORDERED: HEPARIN SODIUM, PORCINE 5000 UNITS/1 ML VIAL SQ SCH (09:00)
[2021-12-13] MEDS: SUCRALFATE 1 G/10 ML UDC GT SCH ×4 (09:56→21:38)
[2021-12-13] MEDS: FAMOTIDINE (20 MG) 20 MG TABLET PO SCH (09:57)
[2021-12-13] MEDS: FERROUS SULFATE (325 MG) 325 MG/TAB TABLET GT SCH ×2 (09:57→16:38)
[2021-12-13] MEDS: ASCORBIC ACID 500 MG TABLET GT SCH ×2 (09:57→16:38)
[2021-12-13] MEDS: ASPIRIN 81 MG TAB.CHEW GT SCH (09:57)
[2021-12-13] MEDS: POLYETHYLENE GLYCOL 3350 17 GM POWD.PACK GT SCH ×2 (09:58→16:38)
[2021-12-13] MEDS: METOPROLOL TARTRATE 25 MG TABLET GT SCH ×4 (09:58→21:39)
[2021-12-13] MEDS: IV NS 0.9% 1,000 ML IV SCH ×2 (09:58→20:15)
[2021-12-13] MEDS: HEPARIN SODIUM, PORCINE 5000 UNITS/1 ML VIAL SQ SCH ×2 (09:59→21:51)
[2021-12-13] MEDS ORDERED: IPRATROPIUM/ALBUTEROL INHALER IH PRN (11:30)
[2021-12-13 12:00] VITALS: BP 138/67
[2021-12-13] MEDS: PROSTAT (PYXIS) 30 ML UDC GT SCH ×2 (12:53→16:38)
[2021-12-13] MEDS: GLYCOPYRROLATE 1 MG TABLET GT SCH ×2 (12:56→16:38)
[2021-12-13] MEDS: PIPERACILLIN /TAZOBACTAM 2.25 G in IV D5W 50 ML IV SCH ×2 (12:56→20:15)
[2021-12-13] MEDS: INSULIN REGULAR, HUMAN 100 UNIT/ML 3 ML VIAL SQ PRN (13:00)
[2021-12-13] MEDS: LEVETIRACETAM SOL (5 ML) 100 MG/ML UDC GT SCH (16:38)
[2021-12-13] MEDS: *INSULIN REGULAR(HUMULIN R)HUM 100 UNIT/ML VIAL SQ PRN ×2 (16:54→22:08)
--- NOTE | 2021-12-13 18:52 | NUR ---
RN NOTE PATIENT REMAINS IN BED, OBTUNDED. PATIENT WITH TPIECE ON 2L O2 AT THIS TIME WITH NO SIGNS OF LABORED BREATHING. G TUBE IN PLACE RUNNING FEEDING AT 45CC/HR. IF IN PLACE RUNNING NS AT 100CC/HR. RENDON CATH IN PLACE, PATENT. BED LOCKED AND IN LOWEST POSITION, CALL LIGHT WITHIN REACH, 3 SIDE RAILS UP. WILL ENDORSE TO BONBON CREAM WARMER NURSE.
--- NOTE | 2021-12-13 19:10 | NUR ---
MS/RN OPENING NOTE RECEIVED PATIENT RESTING IN BED. OBTUNDED AT BASELINE - OPENS EYES. CONTINUES ON T-PIECE WITH O2 2L. NO S/SX OF RESPIRATORY DISTRESS NOTED. NO S/SX OF PAIN AT THIS TIME. IV ACCESS TO RIGHT UPPER ARM MIDLINE #18G AND RIGHT WRIST #20G BOTH INTACT AND PATENT. CONTINUES ON NS 0.9% @ 100ML/HR. CONTINUES ON JEVITY TF @ 45ML/HR. NO RESIDUAL NOTED AT THIS TIME. RENDON CATHETER IN PLACE DRAINING CLEAR, YELLOW URINE TO GRAVITY. CALL LIGHT WITHIN REACH. ASPIRATION, FALL AND SAFETY PRECAUTIONS MAINTAINED. WILL CONTINUE TO MONITOR.
[2021-12-13 20:00] VITALS: BP 115/60
[2021-12-13] MEDS ORDERED: CEFTRIAXONE 1 G in IV D5W 50 ML IV SCH (22:00)
[2021-12-13] MEDS: INSULIN GLARGINE, 100 UNIT/ML CARTRIDGE SQ SCH (22:08)
[2021-12-13] MEDS ORDERED: AZITHROMYCIN 500 MG in IV D5W 250 ML IV SCH (23:00)
[2021-12-14 04:00] VITALS: BP 136/62
[2021-12-14] MEDS: PIPERACILLIN /TAZOBACTAM 2.25 G in IV D5W 50 ML IV SCH ×3 (05:07→21:44)
[2021-12-14] MEDS: IV NS 0.9% 1,000 ML IV SCH (05:54)
--- NOTE | 2021-12-14 06:10 | NUR ---
MS/RN CLOSING NOTE PATIENT CURRENTLY RESTING IN BED. OBTUNDED AT BASELINE - OPENS EYES. CONTINUES ON T-PIECE WITH O2 2L. NO S/SX OF RESPIRATORY DISTRESS NOTED. NO S/SX OF PAIN AT THIS TIME. IV ACCESS TO RIGHT UPPER ARM MIDLINE #18G AND RIGHT WRIST #20G BOTH INTACT AND PATENT. CONTINUES ON NS 0.9% @ 100ML/HR. CONTINUES ON GLUCERNA TF @ 60ML/HR. NO RESIDUAL NOTED AT THIS TIME. RENDON CATHETER IN PLACE DRAINING CLEAR, YELLOW URINE TO GRAVITY. CALL LIGHT WITHIN REACH. ASPIRATION, FALL AND SAFETY PRECAUTIONS MAINTAINED. WILL ENDORSE PLAN OF CARE TO ONCOMING SHIFT.
--- NOTE | 2021-12-14 07:31 | NUR ---
MS RN OPENING NOTE Patient in bed, asleep. Obtunded, opens eyes. Continues on T-piece at 2 LPM, tolerating well. No s/s of distress noted. IV access on Right wrist #20G, SL and ANA midline infusing NS at 100 ml/hr. G-tube intact running Glucerna at 60 ml/hr. Briscoe catheter in place. Safety precautions in place: bed inlow, locked position; siderails up x 2; call light within reach. Will continue to monitor.
[2021-12-14 07:48] LABS: CALCIUM, SERUM 9.2 mg/dL (8.5-10.1); CREATININE 2.9 mg/dL (0.6-1.3); POTASSIUM 4.1 mmol/L (3.5-5.1)
--- NOTE | 2021-12-14 08:00 | NUR ---
RN NOTE Patient temp is 99.7, PRN Tylenol given.
[2021-12-14 08:23] LABS: BASOPHILS # (AUTO) 0.1 K/uL (0.0-0.2); BASOPHILS % (AUTO) 0.8 % (0.0-2.0); HEMATOCRIT 27 % (39-51); HEMOGLOBIN 8.5 g/dL (13.5-17.5); LYMPHOCYTES # (AUTO) 1.7 K/uL (0.8-4.8); LYMPHOCYTES % (AUTO) 14.3 % (20.0-44.0); MEAN CORPUSCULAR HGB CONC 31 g/dl (31.0-36.0); MEAN CORPUSCULAR VOLUME 79 fL (80-96); MONOCYTES # (AUTO) 0.4 K/uL (0.1-1.30); NEUTROPHILS # (AUTO) 9.6 K/uL (1.8-8.9); NEUTROPHILS % (AUTO) 79.9 % (43.0-81.0); PLATELET COUNT (AUTO) 131 K/uL (150-450); RED BLOOD CELL COUNT(AUTO) 3.42 MIL/uL (4.5-6.0)
[2021-12-14] MEDS: BLOOD SUGAR DIAGNOSTIC 1 EACH STRIP VI SCH ×4 (08:45→21:45)
[2021-12-14] MEDS: POLYETHYLENE GLYCOL 3350 17 GM POWD.PACK GT SCH ×2 (08:45→17:33)
[2021-12-14] MEDS: PANTOPRAZOLE 40 MG/PACK PACK GT SCH (08:46)
[2021-12-14] MEDS: ASCORBIC ACID 500 MG TABLET GT SCH ×2 (08:46→17:34)
[2021-12-14] MEDS: FERROUS SULFATE (325 MG) 325 MG/TAB TABLET GT SCH ×2 (08:46→17:33)
[2021-12-14] MEDS: SODIUM BICARBONATE 650 MG TABLET GT SCH (08:46)
[2021-12-14] MEDS: ASPIRIN 81 MG TAB.CHEW GT SCH (08:46)
[2021-12-14] MEDS: GLYCOPYRROLATE 1 MG TABLET GT SCH ×3 (08:46→17:34)
[2021-12-14] MEDS: FAMOTIDINE (20 MG) 20 MG TABLET PO SCH (08:46)
[2021-12-14] MEDS: DOCUSATE SODIUM 250 MG CAPSULE PO SCH (08:46)
[2021-12-14] MEDS: SUCRALFATE 1 G/10 ML UDC GT SCH ×4 (08:46→21:45)
[2021-12-14] MEDS: ACETAMINOPHEN 325 MG TABLET PO PRN ×4 (08:47→23:34)
[2021-12-14] MEDS: METOPROLOL TARTRATE 25 MG TABLET GT SCH ×4 (08:47→21:45)
[2021-12-14] MEDS: LEVETIRACETAM SOL (5 ML) 100 MG/ML UDC GT SCH ×2 (08:47→17:33)
[2021-12-14] MEDS: *INSULIN REGULAR(HUMULIN R)HUM 100 UNIT/ML VIAL SQ PRN ×3 (08:49→21:48)
[2021-12-14] MEDS: HEPARIN SODIUM, PORCINE 5000 UNITS/1 ML VIAL SQ SCH ×2 (08:50→21:49)
[2021-12-14] MEDS: PROSTAT (PYXIS) 30 ML UDC GT SCH ×3 (09:27→17:34)
[2021-12-14] MEDS: IV 1/2NS 1000 ML 1,000 ML IV SCH ×2 (10:37→20:08)
[2021-12-14 12:00] VITALS: BP 119/71
--- NOTE | 2021-12-14 13:00 | NUR ---
RN NOTE Patient temp is 101.4, PRN Tylenol given. Dr. Scott patricia ordered a repeat blood culture.
[2021-12-14] MEDS ORDERED: GLUCERNA 1.2 1,000 ML BOTTLE NG PRN (15:00)
[2021-12-14] MEDS: INSULIN REGULAR, HUMAN 100 UNIT/ML 3 ML VIAL SQ PRN (18:01)
--- NOTE | 2021-12-14 18:38 | NUR ---
MS RN CLOSING NOTE Patient in bed, asleep. Obtunded, opens eyes. Continues on T-piece at 2 LPM, tolerating well. No s/s of distress noted. IV access on Right wrist #20G, SL and ANA midline infusing NS at 100 ml/hr. G-tube intact running Glucerna at 60 ml/hr. Briscoe catheter in place, intact with an output of 1300 cc. Kept clean and dry. Due meds given. Safety precautions maintained: bed in low, locked position; siderails up x 2; call light within reach. Will endorse to shift supervisor film processing nurse for SELMA.
--- NOTE | 2021-12-14 19:30 | NUR ---
RN OPENING NOTE PATIENT IN BED, EYES CLOSED. OPENS EYES WITH TOUCH AND VERBAL STIMULI. PATIENT IS ON A T PIECE 3 LPM WITH HUMIDIFIER. PATIENT HAS GLUCERNA 70ML/HR AT THIS TIME. TOLERATING WELL. PATIENT HAS A ANA MIDLINE 18G WITH 1/2 NS @100 ML/HR INFUSING WELL, AND R WRIST 20 G PRESENT. SAFETY MEASURES IN PLACE: BED LOCKED AND IN LOWEST POSITION, CALL LIGHT WITHIN REACH, SIDE RAILS UP. WILL MONITOR PATIENT CLOSELY. ISOLATION PRECAUTIONS IN PLACE.
[2021-12-14 20:00] VITALS: BP 130/92
[2021-12-14] MEDS: INSULIN GLARGINE, 100 UNIT/ML CARTRIDGE SQ SCH (21:47)
--- NOTE | 2021-12-14 22:00 | NUR ---
RN NOTE PATIENT BS 198 3 UNITS GIVEN FOR COVERAGE, ON TF
[2021-12-15 04:00] VITALS: BP 153/59
[2021-12-15] MEDS: PIPERACILLIN /TAZOBACTAM 2.25 G in IV D5W 50 ML IV SCH ×3 (05:23→20:28)
[2021-12-15] MEDS: IV 1/2NS 1000 ML 1,000 ML IV SCH ×2 (05:58→14:44)
[2021-12-15 06:47] LABS: BASOPHILS % (AUTO) 0.4 % (0.0-2.0); EOSINOPHILS % (AUTO) 1.3 % (0.0-6.0); HEMATOCRIT 23 % (39-51); HEMOGLOBIN 7.4 g/dL (13.5-17.5); LYMPHOCYTES # (AUTO) 1.2 K/uL (0.8-4.8); LYMPHOCYTES % (AUTO) 19.3 % (20.0-44.0); MEAN CORPUSCULAR HGB CONC 32 g/dl (31.0-36.0); MEAN CORPUSCULAR VOLUME 79 fL (80-96); MONOCYTES # (AUTO) 0.4 K/uL (0.1-1.30); NEUTROPHILS # (AUTO) 4.4 K/uL (1.8-8.9); PLATELET COUNT (AUTO) 143 K/uL (150-450); RED BLOOD CELL COUNT(AUTO) 2.95 MIL/uL (4.5-6.0)
--- NOTE | 2021-12-15 06:57 | NUR ---
RN CLOSING NOTE PATIENT IN BED, EYES CLOSED. OPENS EYES WITH TOUCH AND VERBAL STIMULI. PATIENT IS ON A T PIECE 3 LPM WITH HUMIDIFIER. PATIENT HAS GLUCERNA 75 ML/HR, INCREASED. NO RESIDUAL, TOLERATING WELL. PATIENT HAS A ANA MIDLINE 18G WITH 1/2 NS @100 ML/HR INFUSING WELL, AND R WRIST 20 G PRESENT. NO FEVER AT THIS TIME. FEVER MANAGED WITH TYLENOL AND COOLING MEASURES. SAFETY MEASURES IN PLACE: BED LOCKED AND IN LOWEST POSITION, CALL LIGHT WITHIN REACH, SIDE RAILS UP. ISOLATION PRECAUTIONS IN PLACE. ALL NEEDS MET AND ATTENDED, ALL ORDERS CARRIED OUT. WILL ENDORSE TO DAY SHIFT NURSE FOR [facility]EL[facility].
--- NOTE | 2021-12-15 07:20 | NUR ---
RN OPENING NOTE PATIENT IN BED, EYES CLOSED. PATIENT IS OBTUNDED OPENS EYES. PATIENT IS ON A T PIECE 3 LPM WITH HUMIDIFIER. PATIENT HAS GLUCERNA 75ML/HR AT THIS TIME. TOLERATING WELL, NO RESIDUAL NOTED. PATIENT HAS A ANA MIDLINE 18G WITH 1/2 NS @100 ML/HR INFUSING WELL, AND R WRIST 20 G PRESENT, PATENT, INTACT AND FLUSHED. ALL APPLICABLE ISOLATIONS PRECAUTIONS IN PLACE. SAFETY MEASURES IN PLACE: BED LOCKED AND IN LOWEST POSITION, CALL LIGHT WITHIN REACH, SIDE RAILS UP. WILL MONITOR PATIENT ACCORDINGLY.
[2021-12-15 07:26] LABS: CALCIUM, SERUM 9.3 mg/dL (8.5-10.1); CREATININE 2.2 mg/dL (0.6-1.3); POTASSIUM 3.5 mmol/L (3.5-5.1)
[2021-12-15] MEDS: BLOOD SUGAR DIAGNOSTIC 1 EACH STRIP VI SCH ×4 (07:58→21:14)
[2021-12-15] MEDS: *INSULIN REGULAR(HUMULIN R)HUM 100 UNIT/ML VIAL SQ PRN ×4 (07:59→21:17)
[2021-12-15] MEDS: HEPARIN SODIUM, PORCINE 5000 UNITS/1 ML VIAL SQ SCH ×2 (09:15→20:56)
[2021-12-15] MEDS: SUCRALFATE 1 G/10 ML UDC GT SCH ×4 (09:16→21:00)
[2021-12-15] MEDS: LEVETIRACETAM SOL (5 ML) 100 MG/ML UDC GT SCH ×2 (09:16→16:36)
[2021-12-15] MEDS: ASPIRIN 81 MG TAB.CHEW GT SCH (09:16)
[2021-12-15] MEDS: ASCORBIC ACID 500 MG TABLET GT SCH ×2 (09:16→16:41)
[2021-12-15] MEDS: PANTOPRAZOLE 40 MG/PACK PACK GT SCH (09:16)
[2021-12-15] MEDS: POLYETHYLENE GLYCOL 3350 17 GM POWD.PACK GT SCH ×2 (09:16→16:41)
[2021-12-15] MEDS: DOCUSATE SODIUM 250 MG CAPSULE PO SCH (09:16)
[2021-12-15] MEDS: SODIUM BICARBONATE 650 MG TABLET GT SCH (09:17)
[2021-12-15] MEDS: FERROUS SULFATE (325 MG) 325 MG/TAB TABLET GT SCH ×2 (09:17→16:36)
[2021-12-15] MEDS: GLYCOPYRROLATE 1 MG TABLET GT SCH ×3 (09:17→16:36)
[2021-12-15] MEDS: METOPROLOL TARTRATE 25 MG TABLET GT SCH ×4 (09:17→21:00)
[2021-12-15] MEDS: FAMOTIDINE (20 MG) 20 MG TABLET PO SCH (09:18)
[2021-12-15] MEDS: PROSTAT (PYXIS) 30 ML UDC GT SCH ×3 (10:19→16:41)
[2021-12-15 12:00] VITALS: BP 138/74
[2021-12-15] MEDS: DEXAMETHASONE SOD PHOSPHATE 10 MG/ML VIAL IV SCH (13:06)
--- NOTE | 2021-12-15 13:10 | NUR ---
RN NOTE CT CHEST RESULTED GT DISPLACED. TUBE FEEDING STOPPED, INPUT ORDER FOR GI CONSULT DR. CONWAY.
--- NOTE | 2021-12-15 16:42 | NUR ---
RN NOTES HELD ALL DUE MEDS AT 1700 DUE TO GT DISPLACED, PATIENT IS NPO.
--- NOTE | 2021-12-15 19:16 | NUR ---
RN CLOSING NOTES PATIENT REMAINS AT STABLE CONDITION THROUGHOUT SHIFT. BREATHING EVEN AND UNLABORED. NO SOB OR ANY ACUTE DISTRESS NOTED. IV ACCESS ON ANA MIDLINE PATENT AND INTACT INFUSING NS AT 75 ML/HR. TUBE FEEDING AND ALL GT MEDS ON HOLD DUE TO GT DISPLACED. PATIENT IS NPO. ALL NEEDS ATTENDED. KEPT PATIENT CLEAN, DRY AND COMFORTABLE. ALL APPLICABLE ISOLATION PRECAUTIONS MAINTAINED. ALL SAFETY MEASURES MAINTAINED. HOB ELEVATED BED LOCKED AND IN LOWEST POSITION WITH SIDERAILS UP CALL LIGHT WITHIN REACH. WILL ENDORSE TO ONCOMING NURSE FOR SELMA.
--- NOTE | 2021-12-15 19:20 | NUR ---
RN OPENING NOTES RECEIVED PATIENT IN BED, AWAKE, OBTUNDED, NON VERBAL, NO SOB NOTED NOT IN DISTRESS, PATIENT ON T-PIECE 3 LPM . PATIENT NOTED WITH ANA MID LINE, RIGHT WRIST G#20 PATENT INTACT AND FLUSHED WITH NORMAL SALINE. NOTED WITH GTUBE NOT IN PLACED, HOLD ALL MEDICATION AND FEEDING. ALL SAFETY PRECAUTION IMPLEMENTED. BED IS AT LOWEST POSITION AND LOCKED. BED ALARM ARMED. CALL LIGHT IS WITHIN REACH. WILL CONTINUE TO MONITOR
[2021-12-15 20:00] VITALS: BP 157/79
[2021-12-15] MEDS: IV D5W 1,000 ML IV SCH (20:25)
--- NOTE | 2021-12-15 20:58 | NUR ---
RN NOTES PATIENT EVENING DOSE OF HEPARIN 5,000 UNITS AT 2100 NOT GIVEN DUE TO HEMOGLOBIN 7.4 TRENDING DOWN, NOTIFIED DR. VEGA WITH NEW ORDER TO HOLD EVENING DOSE OF HEPARIN NOTED AND CARRIED OUT.
[2021-12-15] MEDS: INSULIN GLARGINE, 100 UNIT/ML CARTRIDGE SQ SCH (21:15)
--- NOTE | 2021-12-15 21:45 | NUR ---
RN NOTES HOLD MEDS, BECAUSE GTUBE NOT IN PLACED
[2021-12-16 04:00] VITALS: BP 162/84
--- NOTE | 2021-12-16 04:40 | NUR ---
RN NOTES PATIENT NOTED WITH BP- 162/84 AND TEMP. 101.3, FOUNTAIN CLERK VIDHI STOUT MADE AWARE WITH NEW ORDER HYDRALAZINE 10MG IVP Q6H FOR SBP >160, ACETAMINOPHEN SUPPOSITORY 650MG FOR FEVER NOTED AND CARRIED OUT. CONTINUE TO MONITOR
[2021-12-16] MEDS ORDERED: hydrALAZINE HCL IV 20 MG VIAL IV PRN (05:00)
[2021-12-16] MEDS ORDERED: ACETAMINOPHEN 650 MG/SUPP.RECT RC PRN (05:00)
--- NOTE | 2021-12-16 05:20 | NUR ---
RN NOTES CALLED COMPUTER APPLICATIONS INSTRUCTOR GIRISH FOR HYDRALAZINE NOT AVAILABLE HERE IN THE HOSPITAL, OBTAINED NEW ORDER LABETALOL 20MG IVP ONE TIME, FOR SBP>160 NOTED AND CARRIED OUT. CONTINUE TO MONITOR.
[2021-12-16] MEDS ORDERED: LABETALOL HCL IV 100MG VIAL IV ONE (05:30)
[2021-12-16] MEDS: PIPERACILLIN /TAZOBACTAM 2.25 G in IV D5W 50 ML IV SCH (05:34)
--- NOTE | 2021-12-16 06:00 | NUR ---
RN NOTES BP RECHECKED OBTAINED 136/68, TEMPERATURE RECHECKED OBTAINED 99.5. WILL CONTINUE TO MONITOR THROUGH OUT THE SHIFT.
--- NOTE | 2021-12-16 07:10 | NUR ---
RN CLOSING NOTES PATIENT RESTING IN BED, NO SOB NOTED NOT IN DISTRESS, PATIENT ON T-PIECE 3 LPM . PATIENT NOTED WITH ANA MID LINE, RIGHT WRIST G#20 PATENT INTACT AND FLUSHED WITH NORMAL SALINE. NOTED WITH GTUBE NOT IN PLACED, HELD ALL MEDICATION AND FEEDING. ALL SAFETY PRECAUTION IMPLEMENTED. BED IS AT LOWEST POSITION AND LOCKED. BED ALARM ARMED. CALL LIGHT IS WITHIN REACH. WILL CONTINUE TO MONITOR. ENDORSED TO NEXT SHIFT.
--- NOTE | 2021-12-16 07:20 | NUR ---
RN NOTE PATIENT OBSERVED IN BED ASLEEP, HOB ELEVATED FOR ASPIRATION PRECAUTION, GT FEEDING ON HOLD, GT NOT PATENT UPON ASSESSMENT, D5 NS 100 CC/HR RUNNING R UPPER ARM MIDLINE, INFUSING WELL, ON RENDON CATHETER DRAINING WELL VIA GRAVITY NO HEMATURIA NOTED, SAFETY MEASURE OBSERVED, BED WHEELS LOCK, CALL LIGHT WITHIN REACH.
[2021-12-16] MEDS: PANTOPRAZOLE 40 MG/PACK PACK GT SCH (07:30)
--- NOTE | 2021-12-16 08:00 | NUR ---
RN NOTE BLOOD SUGAR OF 380 ADMINISTERED REGULAR INSULIN 15 UNITS SQ.
[2021-12-16 08:31] LABS: BASOPHILS % (AUTO) 0.2 % (0.0-2.0); HEMATOCRIT 25 % (39-51); HEMOGLOBIN 7.7 g/dL (13.5-17.5); LYMPHOCYTES # (AUTO) 0.8 K/uL (0.8-4.8); LYMPHOCYTES % (AUTO) 19.3 % (20.0-44.0); MEAN CORPUSCULAR HGB CONC 31 g/dl (31.0-36.0); MEAN CORPUSCULAR VOLUME 79 fL (80-96); MONOCYTES # (AUTO) 0.4 K/uL (0.1-1.30); MONOCYTES % (AUTO) 8.7 % (2.0-12.0); NEUTROPHILS # (AUTO) 3.1 K/uL (1.8-8.9); NEUTROPHILS % (AUTO) 71.8 % (43.0-81.0); PLATELET COUNT (AUTO) 179 K/uL (150-450); WHITE BLOOD COUNT (AUTO) 4.3 K/uL (4.3-11.0)
[2021-12-16] MEDS: PROSTAT (PYXIS) 30 ML UDC GT SCH ×3 (09:00→16:06)
[2021-12-16] MEDS: GLYCOPYRROLATE 1 MG TABLET GT SCH ×3 (09:00→16:06)
[2021-12-16] MEDS: SODIUM BICARBONATE 650 MG TABLET GT SCH (09:00)
[2021-12-16] MEDS: FERROUS SULFATE (325 MG) 325 MG/TAB TABLET GT SCH ×2 (09:00→16:06)
[2021-12-16] MEDS: DOCUSATE SODIUM 250 MG CAPSULE PO SCH (09:00)
[2021-12-16] MEDS: FAMOTIDINE (20 MG) 20 MG TABLET PO SCH (09:00)
[2021-12-16] MEDS: HEPARIN SODIUM, PORCINE 5000 UNITS/1 ML VIAL SQ SCH ×2 (09:00→21:14)
[2021-12-16] MEDS: ASCORBIC ACID 500 MG TABLET GT SCH ×2 (09:00→16:06)
[2021-12-16] MEDS: ASPIRIN 81 MG TAB.CHEW GT SCH (09:00)
[2021-12-16] MEDS: POLYETHYLENE GLYCOL 3350 17 GM POWD.PACK GT SCH ×2 (09:00→16:06)
[2021-12-16] MEDS: SUCRALFATE 1 G/10 ML UDC GT SCH ×4 (09:00→21:12)
[2021-12-16] MEDS: LEVETIRACETAM SOL (5 ML) 100 MG/ML UDC GT SCH ×2 (09:00→16:06)
[2021-12-16] MEDS: METOPROLOL TARTRATE 25 MG TABLET GT SCH ×4 (09:00→21:12)
[2021-12-16] MEDS: ERGOCALCIFEROL (VITAMIN D 2) 50,000 UNIT CAPSULE GT SCH (09:26)
[2021-12-16] MEDS: IV D5W 1,000 ML IV SCH (09:26)
[2021-12-16 09:28] LABS: CALCIUM, SERUM 8.8 mg/dL (8.5-10.1); MAGNESIUM 1.9 mg/dL (1.8-2.4); PHOSPHORUS 3.1 mg/dL (2.5-4.9); POTASSIUM 3.3 mmol/L (3.5-5.1)
[2021-12-16] MEDS: BLOOD SUGAR DIAGNOSTIC 1 EACH STRIP VI SCH ×4 (09:29→21:57)
[2021-12-16] MEDS: *INSULIN REGULAR(HUMULIN R)HUM 100 UNIT/ML VIAL SQ PRN ×3 (09:30→22:01)
[2021-12-16] MEDS ORDERED: MEROPENEM 500 MG in IV NS 0.9% 50 ML IV SCH (09:30)
[2021-12-16] MEDS: DEXAMETHASONE SOD PHOSPHATE 10 MG/ML VIAL IV SCH (09:33)
[2021-12-16] MEDS: MEROPENEM 500 MG in IV NS 0.9% 50 ML IV SCH ×2 (11:29→23:11)
--- NOTE | 2021-12-16 11:45 | NUR ---
RN NOTE PRE OP CHECK LIST DONE, VERBAL CONSENT FOR BLOOD TRANSFUSION, G-TUBE PLACEMENT AND ANESTHESIA OBTAINED FROM DAUGHTER ОЛЕГ. WITNESS BY SECOND RN SOON.
[2021-12-16 12:00] VITALS: BP 138/80
--- NOTE | 2021-12-16 12:10 | NUR ---
RN NOTE BS OF 310 ADMINISTERED 12UNITS INSULIN PER SLIDING SCALE.
[2021-12-16] MEDS: VANCOMYCIN 1 GM in IV D5W 250ml IV SCH (13:50)
[2021-12-16] MEDS: GLUCERNA 1.2 1,000 ML BOTTLE PEG SCH (13:53)
--- NOTE | 2021-12-16 14:12 | NUR ---
RN NOTE PATIENT RETURNED FROM PACU POST PEG TUBE REPLACEMENT, VTS WNL, PATIENT IS AWAKE AT THIS TIME, BREATHING EVEN AND UNLABORED, NO BLEEDING NOTED, RESUME PEG TUBE FEEDING TOLERATED ORDERED, OK TO USE PEG TUBE FOR MEDICATION ADMINISTRATION.
--- NOTE | 2021-12-16 16:30 | NUR ---
RN NOTE PATIENT SEEN AT BEDSIDE BY DR. STONE, POTASSIUM OF 3.3 NOTED, BUN OF 48 AND CREATININE OF 2.0, NO REPLACEMENT AT THIS TIME.
[2021-12-16] MEDS: INSULIN REGULAR, HUMAN 100 UNIT/ML 3 ML VIAL SQ PRN (17:38)
--- NOTE | 2021-12-16 18:43 | NUR ---
RN NOTE PATIENT OBSERVED IN BED ASLEEP, HOB ELEVATED FOR ASPIRATION PRECAUTION, GT FEEDING GLUCERNA 1.2 RUNNING 40 CC/HR GOAL OF 80CC/HR X 20HRS, TOLERATING WELL, R UPPER ARM MIDLINE FLUSHING WELL, ON RENDON CATHETER DRAINING WELL VIA GRAVITY NO HEMATURIA NOTED, ACCU CHECK DONE ORDERED, WOUND TREATMENT DONE ORDERED, TURNED AND REPOSITION Q2H TOLERATED, SAFETY MEASURE OBSERVED, BED WHEELS LOCK, WILL ENDORSE TO NOC SHIFT.
[2021-12-16] MEDS ORDERED: POTASSIUM CHLORIDE 20 MEQ POWDER PACKET GT ONE (19:00)
--- NOTE | 2021-12-16 19:15 | NUR ---
RN OPENING NOTES RECEIVED PATIENT IN BED, AWAKE, OBTUNDED, NON VERBAL, NO SOB NOTED NOT IN DISTRESS, PATIENT ON T-PIECE 3 LPM . PATIENT NOTED WITH ANA MID LINE, RIGHT WRIST G#20 PATENT INTACT AND FLUSHED WITH NORMAL SALINE. NOTED WITH GTUBE, RUNNING WITH GLUCERNA 1.2 CURRENTLY@ 40 ML/HR THE GOAL IS 80 ML/HR. X 20 HR, INTACT PATENT, NO RESIDUAL NOTED UPON ASPIRATION, HOB KEPT ELEVATED. ALL SAFETY PRECAUTION IMPLEMENTED. BED IS AT LOWEST POSITION AND LOCKED. BED ALARM ARMED. CALL LIGHT IS WITHIN REACH. WILL CONTINUE TO MONITOR
[2021-12-16 20:00] VITALS: BP 154/85
[2021-12-16] MEDS: INSULIN GLARGINE, 100 UNIT/ML CARTRIDGE SQ SCH (22:08)
--- NOTE | 2021-12-17 | NUR ---
RN NOTES GTUBE FEEDING TURN OFF PER DIETARY RECOMMENDATION.
[2021-12-17 04:00] VITALS: BP 142/76
--- NOTE | 2021-12-17 04:00 | NUR ---
RN NOTES GTUBE FEEDING TURN ON PER DIETARY RECOMMENDATION.
--- NOTE | 2021-12-17 07:47 | NUR ---
RN CLOSING NOTES PATIENT REMAIN STABLE THROUGH OUT THE SHIFT, NO SOB NOTED NOT IN DISTRESS, PATIENT ON T-PIECE 3 LPM . PATIENT NOTED WITH ANA MID LINE, RIGHT WRIST G#20 PATENT INTACT AND FLUSHED WITH NORMAL SALINE. NOTED WITH GTUBE, RUNNING WITH GLUCERNA 1.2 CURRENTLY@ 40 ML/HR THE GOAL IS 80 ML/HR. X 20 HR, INTACT PATENT, NO RESIDUAL NOTED UPON ASPIRATION, HOB KEPT ELEVATED. ALL DUE MEDS GIVEN ORDERED. ALL SAFETY PRECAUTION IMPLEMENTED. BED IS AT LOWEST POSITION AND LOCKED. BED ALARM ARMED. CALL LIGHT IS WITHIN REACH. WILL CONTINUE TO MONITOR
[2021-12-17] MEDS: BLOOD SUGAR DIAGNOSTIC 1 EACH STRIP VI SCH ×3 (08:11→18:30)
[2021-12-17 08:15] LABS: BASOPHILS % (AUTO) 0.2 % (0.0-2.0); HEMATOCRIT 31 % (39-51); HEMOGLOBIN 9.4 g/dL (13.5-17.5); LYMPHOCYTES # (AUTO) 1.2 K/uL (0.8-4.8); LYMPHOCYTES % (AUTO) 20.5 % (20.0-44.0); MEAN CORPUSCULAR HGB CONC 31 g/dl (31.0-36.0); MEAN CORPUSCULAR VOLUME 80 fL (80-96); MONOCYTES # (AUTO) 0.5 K/uL (0.1-1.30); MONOCYTES % (AUTO) 9.4 % (2.0-12.0); NEUTROPHILS % (AUTO) 69.9 % (43.0-81.0); PLATELET COUNT (AUTO) 230 K/uL (150-450); RED BLOOD CELL COUNT(AUTO) 3.82 MIL/uL (4.5-6.0); WHITE BLOOD COUNT (AUTO) 5.7 K/uL (4.3-11.0)
[2021-12-17 08:28] LABS: CALCIUM, SERUM 9.1 mg/dL (8.5-10.1); CREATININE 1.7 mg/dL (0.6-1.3); POTASSIUM 3.8 mmol/L (3.5-5.1)
[2021-12-17] MEDS: DOCUSATE SODIUM 250 MG CAPSULE PO SCH (08:29)
[2021-12-17] MEDS: ASCORBIC ACID 500 MG TABLET GT SCH ×2 (08:29→16:48)
[2021-12-17] MEDS: PANTOPRAZOLE 40 MG/PACK PACK GT SCH (08:29)
[2021-12-17] MEDS: LEVETIRACETAM SOL (5 ML) 100 MG/ML UDC GT SCH ×2 (08:29→16:48)
[2021-12-17] MEDS: FERROUS SULFATE (325 MG) 325 MG/TAB TABLET GT SCH ×2 (08:29→16:48)
[2021-12-17] MEDS: ASPIRIN 81 MG TAB.CHEW GT SCH (08:29)
[2021-12-17] MEDS: DEXAMETHASONE SOD PHOSPHATE 10 MG/ML VIAL IV SCH (08:29)
[2021-12-17] MEDS: SODIUM BICARBONATE 650 MG TABLET GT SCH (08:30)
[2021-12-17] MEDS: METOPROLOL TARTRATE 25 MG TABLET GT SCH ×4 (08:31→21:00)
[2021-12-17] MEDS: FAMOTIDINE (20 MG) 20 MG TABLET PO SCH (08:32)
[2021-12-17] MEDS: SUCRALFATE 1 G/10 ML UDC GT SCH ×4 (08:33→21:00)
[2021-12-17] MEDS: HEPARIN SODIUM, PORCINE 5000 UNITS/1 ML VIAL SQ SCH ×2 (08:33→21:02)
[2021-12-17] MEDS: POLYETHYLENE GLYCOL 3350 17 GM POWD.PACK GT SCH ×2 (08:33→16:48)
[2021-12-17] MEDS: GLYCOPYRROLATE 1 MG TABLET GT SCH ×3 (08:33→16:48)
[2021-12-17] MEDS: PROSTAT (PYXIS) 30 ML UDC GT SCH ×3 (09:02→17:02)
[2021-12-17] MEDS: *INSULIN REGULAR(HUMULIN R)HUM 100 UNIT/ML VIAL SQ PRN ×3 (10:46→18:31)
[2021-12-17] MEDS: MEROPENEM 500 MG in IV NS 0.9% 50 ML IV SCH ×2 (11:25→22:41)
[2021-12-17 12:00] VITALS: BP 138/90
[2021-12-17] MEDS: VANCOMYCIN 1 GM in IV D5W 250ml IV SCH (12:48)
--- NOTE | 2021-12-17 14:22 | NUR ---
RN OPENING NOTES RECEIVED PATIENT IN BED, AWAKE, OBTUNDED, NON VERBAL, NO SOB NOTED NOT IN DISTRESS, PATIENT ON T-PIECE 3 LPM . PATIENT NOTED WITH ANA MID LINE, RIGHT WRIST G#20 PATENT INTACT AND FLUSHED WITH NORMAL SALINE. NOTED WITH GTUBE, RUNNING WITH GLUCERNA 1.2 CURRENTLY@ 60 ML/HR THE GOAL IS 80 ML/HR. X 20 HR, INTACT PATENT, NO RESIDUAL NOTED UPON ASPIRATION, HOB KEPT ELEVATED. ALL SAFETY PRECAUTION IMPLEMENTED. BED IS AT LOWEST POSITION AND LOCKED. BED ALARM ARMED. CALL LIGHT IS WITHIN REACH. WILL CONTINUE TO MONITOR
[2021-12-17] MEDS ORDERED: DEXTROSE 50%-WATER 50 ML DISP.SYRIN IV PRN (19:00)
[2021-12-17] MEDS: ACETAMINOPHEN ES 500 MG TABLET GT PRN (19:54)
[2021-12-17 20:00] VITALS: BP 148/88
--- NOTE | 2021-12-17 20:15 | NUR ---
2014 TRANSFERRED TO ROOM 311-1 VIA BED. PATIENT AWAKE AND IN NO APPARENT DISTRESS.
--- NOTE | 2021-12-17 20:16 | NUR ---
MS DRILL PRESS TENDER NOTE PT TRANSPORTED VIA BED TO UNIT AT THIS TIME. PT TRANSFERRED FROM [facility] FOR ADMITTING DX OF PNA. A/O X0 OBTUNDED. VITALS BP 148/88, HR 114, R 24, O2 SAT 92%, AND TEMP 100.9. TYLENOL GIVEN IN [facility] FOR FEVER. PT HAS T PIECE CONNECTED TO 3 LPM. O2 SATS 92%. NO SOB OR S/S OF RESPIRATORY DISTRESS NOTED. IV ACCESS ANA MIDLINE AND R WRIST 20 GAUGE, INTACT AND PATENT. G TUBE IN PLACE, INTACT AND PATENT. WITH RENDON CATH DRAINING CLEAR YELLOW FLUID. SAFETY PRECAUTIONS IN PLACE. BED IN LOWEST LOCKED POSITION, HOB ELEVATED, SIDE RAILS UP X3, AND CALL LIGHT AND TABLE WITHIN REACH. WILL CONTINUE WITH PLAN OF CARE.
[2021-12-17 20:40] VITALS: BP 148/88
[2021-12-17 21:07] VITALS: BP 148/88
[2021-12-17] MEDS: INSULIN GLARGINE, 100 UNIT/ML CARTRIDGE SQ SCH (21:11)
[2021-12-17] MEDS: INSULIN REGULAR, HUMAN 100 UNIT/ML 3 ML VIAL SQ PRN (23:43)
[2021-12-17] MEDS: BLOOD SUGAR DIAGNOSTIC 1 EACH STRIP IN SCH (23:45)
[2021-12-18] MEDS: BLOOD SUGAR DIAGNOSTIC 1 EACH STRIP IN SCH ×4 (05:19→23:10)
[2021-12-18] MEDS: INSULIN REGULAR, HUMAN 100 UNIT/ML 3 ML VIAL SQ PRN ×3 (05:23→18:10)
[2021-12-18 06:21] LABS: BASOPHILS % (AUTO) 0.4 % (0.0-2.0); HEMATOCRIT 29 % (39-51); LYMPHOCYTES # (AUTO) 1.2 K/uL (0.8-4.8); LYMPHOCYTES % (AUTO) 24.5 % (20.0-44.0); MEAN CORPUSCULAR HGB CONC 31 g/dl (31.0-36.0); MEAN CORPUSCULAR VOLUME 80 fL (80-96); MONOCYTES # (AUTO) 0.5 K/uL (0.1-1.30); MONOCYTES % (AUTO) 10.1 % (2.0-12.0); NEUTROPHILS # (AUTO) 3.2 K/uL (1.8-8.9); PLATELET COUNT (AUTO) 275 K/uL (150-450); RED BLOOD CELL COUNT(AUTO) 3.61 MIL/uL (4.5-6.0)
--- NOTE | 2021-12-18 06:48 | NUR ---
MS RN CLOSING NOTE PT IN BED RESTING, EASILY AROUSABLE. A/O X0 OBTUNDED. PT HAS T PIECE CONNECTED TO 3 LPM. NO SOB OR S/S OF RESPIRATORY DISTRESS NOTED. IV ACCESS ANA MIDLINE AND R WRIST 20 GAUGE, INTACT AND PATENT. G TUBE IN PLACE, INTACT AND PATENT, RUNNING GLUCERNA 1.2 @ 60 ML/HR. WITH RENDON CATH DRAINING CLEAR YELLOW FLUID. ALL NEEDS MET AT THIS TIME. SAFETY PRECAUTIONS IN PLACE AT ALL TIMES. BED IN LOWEST LOCKED POSITION, HOB ELEVATED, SIDE RAILS UP X3, AND CALL LIGHT AND TABLE WITHIN REACH. WILL ENDORSE TO ONCOMING SHIFT FOR SELMA.
[2021-12-18 06:50] LABS: CALCIUM, SERUM 9.7 mg/dL (8.5-10.1); CREATININE 1.8 mg/dL (0.6-1.3); MAGNESIUM 2.4 mg/dL (1.8-2.4); POTASSIUM 3.9 mmol/L (3.5-5.1)
--- NOTE | 2021-12-18 07:30 | NUR ---
MS RN OPENING NOTES RECEIVED PT ON BED A/O X0 OBTUNDED. PT HAS T PIECE CONNECTED TO 3 LPM O2 TOLERATING WELL. NO SOB NOTED. NOT IN DISTRESS. WITH IV ACCESS ANA MIDLINE AND R WRIST 20 GAUGE, INTACT AND PATENT. G TUBE IN PLACE, INTACT AND PATENT. WITH RENDON CATH DRAINING CLEAR YELLOW FLUID. SAFETY PRECAUTIONS IN PLACE. BED IN LOWEST LOCKED POSITION, HOB ELEVATED, SIDE RAILS UP X3, AND CALL LIGHT AND TABLE WITHIN REACH. WILL CONTINUE TO MONITOR.
--- NOTE | 2021-12-18 07:45 | NUR ---
pt. chávez on 2 lpm o2 flow with 100% spo2. no sob noted. Addendum: 12/18/21 at 0745 by RUMA WILLOUGHBY RT Amended: Links added.
[2021-12-18 08:00] VITALS: BP 160/91
[2021-12-18] MEDS: ASCORBIC ACID 500 MG TABLET GT SCH ×2 (08:30→17:07)
[2021-12-18] MEDS: PANTOPRAZOLE 40 MG/PACK PACK GT SCH (08:30)
[2021-12-18] MEDS: POLYETHYLENE GLYCOL 3350 17 GM POWD.PACK GT SCH ×2 (08:30→17:06)
[2021-12-18] MEDS: SUCRALFATE 1 G/10 ML UDC GT SCH ×4 (08:30→21:00)
[2021-12-18] MEDS: SODIUM BICARBONATE 650 MG TABLET GT SCH (08:30)
[2021-12-18] MEDS: LEVETIRACETAM SOL (5 ML) 100 MG/ML UDC GT SCH ×2 (08:30→17:06)
[2021-12-18] MEDS: METOPROLOL TARTRATE 25 MG TABLET GT SCH ×4 (08:31→21:00)
[2021-12-18] MEDS: DEXAMETHASONE SOD PHOSPHATE 10 MG/ML VIAL IV SCH (08:31)
[2021-12-18] MEDS: ASPIRIN 81 MG TAB.CHEW GT SCH (08:31)
[2021-12-18] MEDS: GLYCOPYRROLATE 1 MG TABLET GT SCH ×3 (08:32→17:09)
[2021-12-18] MEDS: HEPARIN SODIUM, PORCINE 5000 UNITS/1 ML VIAL SQ SCH ×2 (08:32→20:40)
[2021-12-18] MEDS: FERROUS SULFATE (325 MG) 325 MG/TAB TABLET GT SCH ×2 (08:32→17:06)
[2021-12-18] MEDS: FAMOTIDINE (20 MG) 20 MG TABLET PO SCH (08:32)
[2021-12-18] MEDS: DOCUSATE SODIUM 250 MG CAPSULE PO SCH (08:32)
[2021-12-18] MEDS: MEROPENEM 500 MG in IV NS 0.9% 50 ML IV SCH ×2 (09:46→22:31)
[2021-12-18] MEDS: PROSTAT (PYXIS) 30 ML UDC GT SCH ×3 (09:47→17:09)
[2021-12-18] MEDS: ACETAMINOPHEN 325 MG TABLET PO PRN (10:39)
[2021-12-18] MEDS ORDERED: IV NS 0.9% 1,000 ML IV STA (11:14)
[2021-12-18] MEDS: VANCOMYCIN 1 GM in IV D5W 250ml IV SCH (11:36)
[2021-12-18] MEDS: CLONIDINE HCL 0.1 MG TABLET GT PRN (11:38)
[2021-12-18 12:00] VITALS: BP 169/89
[2021-12-18] MEDS: GLUCERNA 1.2 1,000 ML BOTTLE PEG SCH (13:23)
[2021-12-18 16:00] VITALS: BP 138/74
[2021-12-18] MEDS: IV D5W 1,000 ML IV SCH (17:06)
--- NOTE | 2021-12-18 19:25 | NUR ---
MS RN OPENING NOTES RECEIVED PATIENT RESTING ON BED. A/O X0 OBTUNDED. PATIENT WITH REGULAR AND UNLABORED BREATHING 2LPM VIA T-PIECE, TOLERATED WELL. NO SIGN AND SYMPTOMS OF DISTRESS NOTED AT THIS TIME. NO SIGNS AND SYMPTOMS OF PAIN OR DISCOMFORT AT THIS TIME. IV ACCESS ANA MIDLINE D5W RUNNING @ 80 ML/HR AND R WRIST G #20 SL. IV ACCESS PATENT AND INTACT. SAFETY PRECAUTIONS ENFORCED WITH BED LOCKED AND AT LOWEST POSITION. SIDERAILS UP X3. CALL LIGHT WITHIN REACH AT ALL TIMES WILL CONTINUE TO MONITOR PATIENT.
--- NOTE | 2021-12-18 19:30 | NUR ---
MS RN CLOSING NOTES PT ON BED A/O X0 OBTUNDED. PT HAS T PIECE CONNECTED TO 3 LPM O2 TOLERATING WELL. NO SOB NOTED. NOT IN DISTRESS. WITH IV ACCESS ANA MIDLINE AND R WRIST 20 GAUGE, INTACT AND PATENT. G TUBE SITE IS LEAKING. MD MADE AWARE. WITH RENDON CATH DRAINING CLEAR YELLOW FLUID. SAFETY PRECAUTIONS IN PLACE. BED IN LOWEST LOCKED POSITION, HOB ELEVATED, SIDE RAILS UP X3, AND CALL LIGHT AND TABLE WITHIN REACH. WILL ENDORSE TO NEXT SHIFT FOR SELMA.
[2021-12-18 20:00] VITALS: BP 127/76
--- NOTE | 2021-12-18 21:00 | NUR ---
MS RN NOTES GT TUBE MEDICATIONS NOT ADMINISTERED DUE TO G-TUBE LEAKING HOSPITALIST MADE AWARE. WILL CONTINUE TO MONITOR PATIENT.
[2021-12-18] MEDS: INSULIN GLARGINE, 100 UNIT/ML CARTRIDGE SQ SCH (22:00)
--- NOTE | 2021-12-18 22:00 | NUR ---
MS RN NOTES INSULIN LANTUS NOT ADMINISTERED DUE TO FEEDING BEING OFF BECAUSE OF THE LEAKING G-TUBE. WILL CONTINUE TO MONITOR PATIENT.
--- NOTE | 2021-12-19 00:08 | NUR ---
RT PT DESATURATED, O2 INCREASED FROM 2 LPM TO 4 LPM. GOLDY MCNEIL AT BEDSIDE AND AWARE.
--- NOTE | 2021-12-19 03:30 | NUR ---
RT FIO2 TITRATED FROM 4 LPM TO 3 LPM, PT SPO2 99%
[2021-12-19] MEDS: IV D5W 1,000 ML IV SCH ×2 (05:14→12:27)
[2021-12-19] MEDS: BLOOD SUGAR DIAGNOSTIC 1 EACH STRIP IN SCH ×4 (05:37→23:52)
[2021-12-19 07:02] LABS: CALCIUM, SERUM 9.1 mg/dL (8.5-10.1); CREATININE 1.8 mg/dL (0.6-1.3); MAGNESIUM 2.4 mg/dL (1.8-2.4); PHOSPHORUS 3.8 mg/dL (2.5-4.9); POTASSIUM 3.6 mmol/L (3.5-5.1)
[2021-12-19 07:06] LABS: BASOPHILS % (AUTO) 0.3 % (0.0-2.0); HEMATOCRIT 26 % (39-51); HEMOGLOBIN 8.2 g/dL (13.5-17.5); LYMPHOCYTES # (AUTO) 1.2 K/uL (0.8-4.8); LYMPHOCYTES % (AUTO) 25.7 % (20.0-44.0); MEAN CORPUSCULAR HGB CONC 32 g/dl (31.0-36.0); MEAN CORPUSCULAR VOLUME 82 fL (80-96); MONOCYTES # (AUTO) 0.4 K/uL (0.1-1.30); MONOCYTES % (AUTO) 8.8 % (2.0-12.0); NEUTROPHILS # (AUTO) 3.1 K/uL (1.8-8.9); NEUTROPHILS % (AUTO) 65.2 % (43.0-81.0); PLATELET COUNT (AUTO) 266 K/uL (150-450); RED BLOOD CELL COUNT(AUTO) 3.12 MIL/uL (4.5-6.0); WHITE BLOOD COUNT (AUTO) 4.7 K/uL (4.3-11.0)
--- NOTE | 2021-12-19 07:12 | NUR ---
MS RN CLOSING NOTES PATIENT STILL RESTING ON BED. A/O X0 OBTUNDED. PATIENT WITH REGULAR AND UNLABORED BREATHING 2LPM VIA T-PIECE, TOLERATED WELL. NO SIGN AND SYMPTOMS OF DISTRESS NOTED AT THIS TIME. NO SIGNS AND SYMPTOMS OF PAIN OR DISCOMFORT AT THIS TIME. IV ACCESS ANA MIDLINE D5W RUNNING @ 80 ML/HR AND R WRIST G #20 SL. IV ACCESS PATENT AND INTACT. SAFETY PRECAUTIONS ENFORCED WITH BED LOCKED AND AT LOWEST POSITION. SIDERAILS UP X3. CALL LIGHT WITHIN REACH AT ALL TIMES WILL ENDORSE CONTINUITY OF CARE TO DAY SHIFT NURSE.
[2021-12-19] MEDS ORDERED: INSULIN LISPRO/ASPART 100 UNIT/ML CARTRIDGE SQ ONE (07:30)
[2021-12-19] MEDS: PANTOPRAZOLE 40 MG/PACK PACK GT SCH (07:30)
--- NOTE | 2021-12-19 07:30 | NUR ---
MS RN OPENING NOTES RECEIVED PT ON BED A/O X0 OBTUNDED. PT HAS T PIECE CONNECTED TO 3 LPM O2 TOLERATING WELL. NO SOB NOTED. NOT IN DISTRESS. WITH IV ACCESS ANA MIDLINE AND R WRIST 20 GAUGE, INTACT AND PATENT. G TUBE IN PLACED, HELD FEEDING DUE TO G-TUBE SITE LEAKING. WITH RENDON CATH DRAINING CLEAR YELLOW FLUID. SAFETY PRECAUTIONS IN PLACE. BED IN LOWEST LOCKED POSITION, HOB ELEVATED, SIDE RAILS UP X3, AND CALL LIGHT AND TABLE WITHIN REACH. WILL CONTINUE TO MONITOR.
[2021-12-19 08:00] VITALS: BP 132/84
[2021-12-19] MEDS: GLYCOPYRROLATE 1 MG TABLET GT SCH ×3 (09:00→16:30)
[2021-12-19] MEDS: ASCORBIC ACID 500 MG TABLET GT SCH ×2 (09:00→16:27)
[2021-12-19] MEDS: POLYETHYLENE GLYCOL 3350 17 GM POWD.PACK GT SCH ×2 (09:00→16:27)
[2021-12-19] MEDS: DOCUSATE SODIUM 250 MG CAPSULE PO SCH (09:00)
[2021-12-19] MEDS: SUCRALFATE 1 G/10 ML UDC GT SCH ×4 (09:00→20:47)
[2021-12-19] MEDS: SODIUM BICARBONATE 650 MG TABLET GT SCH (09:00)
[2021-12-19] MEDS: METOPROLOL TARTRATE 25 MG TABLET GT SCH ×4 (09:00→20:47)
[2021-12-19] MEDS: FERROUS SULFATE (325 MG) 325 MG/TAB TABLET GT SCH ×2 (09:00→16:27)
[2021-12-19] MEDS: PROSTAT (PYXIS) 30 ML UDC GT SCH ×3 (09:00→16:31)
[2021-12-19] MEDS: ASPIRIN 81 MG TAB.CHEW GT SCH (09:00)
[2021-12-19] MEDS: FAMOTIDINE (20 MG) 20 MG TABLET PO SCH (09:00)
[2021-12-19] MEDS: LEVETIRACETAM SOL (5 ML) 100 MG/ML UDC GT SCH ×2 (09:00→16:27)
[2021-12-19] MEDS ORDERED: DIATR MEGLU/DIATRIZOATE SODIUM 120 ML BOTTLE (GASTROGRAPHIN) ONE (10:16)
[2021-12-19] MEDS: HEPARIN SODIUM, PORCINE 5000 UNITS/1 ML VIAL SQ SCH ×2 (11:11→20:49)
[2021-12-19] MEDS: DEXAMETHASONE SOD PHOSPHATE 10 MG/ML VIAL IV SCH (11:12)
[2021-12-19] MEDS: MEROPENEM 500 MG in IV NS 0.9% 50 ML IV SCH ×2 (11:12→22:06)
[2021-12-19] MEDS: VANCOMYCIN 1 GM in IV D5W 250ml IV SCH (12:19)
--- NOTE | 2021-12-19 13:00 | NUR ---
RN NOTES MD AWARE OF PATIENT'S G-TUBE SITE LEAKS. XR ABDOMEN DONE AND FOUND G-TUBE IS IN PLACED. REPORTED TO DR. MCNEILL AND ORDERED TO APPLY STOMAHESIVE AT G-TUBE SITE TO PREVENT LEAKING.
[2021-12-19] MEDS: INSULIN REGULAR, HUMAN 100 UNIT/ML 3 ML VIAL SQ PRN ×3 (14:20→23:57)
[2021-12-19 16:00] VITALS: BP 162/71
[2021-12-19] MEDS: GLUCERNA 1.2 1,000 ML BOTTLE PEG SCH (16:42)
[2021-12-19] MEDS ORDERED: INSULIN REGULAR, HUMAN 100 UNIT/ML 3 ML VIAL SQ ONE (18:00)
[2021-12-19] MEDS ORDERED: DEXTROSE 50%-WATER 50 ML DISP.SYRIN IV PRN (19:00)
--- NOTE | 2021-12-19 19:30 | NUR ---
MS RN CLOSING NOTES PT ON BED A/O X0 OBTUNDED. PT HAS T PIECE CONNECTED TO 3 LPM O2 TOLERATING WELL. NO SOB NOTED. NOT IN DISTRESS. WITH IV ACCESS ANA MIDLINE AND R WRIST 20 GAUGE, INTACT AND PATENT. G TUBE IN PLACED INTACT AND PATENT. WITH RENDON CATH DRAINING CLEAR YELLOW FLUID AND REMOVED 1700ML OF URINE. PATIENT HAS HIGH BLOOD SUGAR OF 439, MD AWARE AND ORDERED TO GIVE ADDITIONAL 30U OF REGULAR INSULIN. DUE MEDS GIVEN. SAFETY PRECAUTIONS IN PLACED. BED IN LOWEST LOCKED POSITION, HOB ELEVATED, SIDE RAILS UP X3, AND CALL LIGHT AND TABLE WITHIN REACH. WILL ENDORSE TO NEXT SHIFT FOR SELMA.
--- NOTE | 2021-12-19 19:40 | NUR ---
MS RN NOTES RECEIVED ON BED,OBTUNDED,NON VERBAL,WITH GT FEEDING OF GLUCERNA AT 60ML/HR RATE,NO RESIDUAL NOTED,PRESENT IVF OF D5W AT 80ML/HR RATE INFUSING VIA IV PUMP ON ANA MIDLINE.RENDON CATH IN PLACE DRAINING YELLOWISH OUTPUT.HOB ELEVATED FOR ASPIRATION PRECAUTION.WILL CONTINUE TO MONITOR STATUS.
[2021-12-19 20:00] VITALS: BP 140/77
--- NOTE | 2021-12-19 20:30 | NUR ---
MS RN NOTES REPORTED BY LAB,BLOOD CULTURE RESULT GRAM POSITIVE COCCI IN CLUSTERS,ALREADY ON IV ANTIBIOTICS
--- NOTE | 2021-12-19 21:45 | NUR ---
MS RN NOTES DR CABRERA MADE AWARE OF PATIENT HIGH BLOOD SUGAR,WITH ORDER TO D/C D5W AND CHANGE IT TO 1/2 NS AT SAME RATE,80ML/HR RATE NOTED AND CARRIED OUT.
[2021-12-19] MEDS: INSULIN GLARGINE, 100 UNIT/ML CARTRIDGE SQ SCH (21:59)
[2021-12-19] MEDS ORDERED: INSULIN GLARGINE, 100 UNIT/ML CARTRIDGE SQ SCH (22:00)
--- NOTE | 2021-12-19 22:00 | NUR ---
MS RN NOTES ACCU-CHECK BLOOD SUGAR CHECK 305,DUE LANTUS 25 UNIT ADMINISTERED SQ SCHEDULED.
[2021-12-19] MEDS: IV 1/2NS 1000 ML 1,000 ML IV PRN (23:59)
--- NOTE | 2021-12-20 | NUR ---
MS RN NOTES ACCU-CHECK BLOOD SUGAR CHECK 241,COVERED WITH HUMULIN R 8UNITS PER SLIDING SCALE.
--- NOTE | 2021-12-20 03:30 | NUR ---
MS RN NOTES STILL LEAKING ON GT SITE, LIGHT BROWN IN COLOR,GT SITE CARE DONE.GT FEEDING IN PROGRESS,
--- NOTE | 2021-12-20 05:40 | NUR ---
MS RN NOTES ACCU-CHECK BLOOD SUGAR CHECK 132,COVERED WITH HUMULIN R 2 UNITS PER SLIDING SCALE.
[2021-12-20] MEDS: BLOOD SUGAR DIAGNOSTIC 1 EACH STRIP IN SCH ×3 (05:56→17:52)
[2021-12-20] MEDS: INSULIN REGULAR, HUMAN 100 UNIT/ML 3 ML VIAL SQ PRN ×3 (05:58→17:52)
--- NOTE | 2021-12-20 07:01 | NUR ---
MS RN NOTES AFEBRILE THRU OUT SHIFT,GT FEEDING TOLERATED WELL,NO N/D/V NOTED,GT SITE STILL LEAKING BUT NOT MUCH.IN NO ACUTE DISTRESS.
--- NOTE | 2021-12-20 07:25 | NUR ---
MS RN OPENING NOTES RECEIVED PT AWAKE IN BED IN NO ACUTE SIGNS OF DISTRESS. HOB ELEVATED. PT IS A/O X0. OBTUNDED AND HIS EYES OPEN. PT ON COOL AEROSOL T-PIECE ON 4 LPM O2,TOLERATING WELL WITH NO SOB NOTED. ANA MIDLINE INTACT AND PATENT WITH 1/2 NS @ 80 ML/HR INFUSING WELL. G-TUBE IN PLACE WITH FEEDING OF GLUCERNA @ 80ML/HR IN PROGRESS TOLERATING WELL. ASPIRATION PRECAUTIONS MAINTAINED. RENDON CATH IN PLACE DRAINING CLEAR YELLOW URINE OUTPUT VIA GRAVITY. SAFETY PRECAUTIONS IN PLACED. BED IN LOWEST LOCKED POSITION, SIDE RAILS UP X3, BED ALARM ON AND CALL LIGHT WITHIN REACH. WILL CONTINUE TO MONITOR.
[2021-12-20 07:27] LABS: BASOPHILS % (AUTO) 0.2 % (0.0-2.0); EOSINOPHILS % (AUTO) 0.1 % (0.0-6.0); HEMATOCRIT 27 % (39-51); HEMOGLOBIN 8.4 g/dL (13.5-17.5); LYMPHOCYTES # (AUTO) 1.5 K/uL (0.8-4.8); LYMPHOCYTES % (AUTO) 20.5 % (20.0-44.0); MEAN CORPUSCULAR HGB CONC 32 g/dl (31.0-36.0); MEAN CORPUSCULAR VOLUME 83 fL (80-96); MONOCYTES # (AUTO) 0.5 K/uL (0.1-1.30); MONOCYTES % (AUTO) 6.4 % (2.0-12.0); NEUTROPHILS # (AUTO) 5.4 K/uL (1.8-8.9); NEUTROPHILS % (AUTO) 72.8 % (43.0-81.0); PLATELET COUNT (AUTO) 284 K/uL (150-450); RED BLOOD CELL COUNT(AUTO) 3.21 MIL/uL (4.5-6.0); WHITE BLOOD COUNT (AUTO) 7.4 K/uL (4.3-11.0)
[2021-12-20 07:58] LABS: CALCIUM, SERUM 9.6 mg/dL (8.5-10.1); CREATININE 1.7 mg/dL (0.6-1.3); MAGNESIUM 2.4 mg/dL (1.8-2.4); PHOSPHORUS 3.3 mg/dL (2.5-4.9); POTASSIUM 4.1 mmol/L (3.5-5.1)
[2021-12-20 08:00] VITALS: BP 152/84
[2021-12-20] MEDS: POLYETHYLENE GLYCOL 3350 17 GM POWD.PACK GT SCH ×2 (08:26→17:16)
[2021-12-20] MEDS: GLYCOPYRROLATE 1 MG TABLET GT SCH ×3 (08:26→17:17)
[2021-12-20] MEDS: DOCUSATE SODIUM 250 MG CAPSULE PO SCH (08:26)
[2021-12-20] MEDS: FERROUS SULFATE (325 MG) 325 MG/TAB TABLET GT SCH ×2 (08:26→17:17)
[2021-12-20] MEDS: ASPIRIN 81 MG TAB.CHEW GT SCH (08:26)
[2021-12-20] MEDS: FAMOTIDINE (20 MG) 20 MG TABLET PO SCH (08:26)
[2021-12-20] MEDS: PANTOPRAZOLE 40 MG/PACK PACK GT SCH (08:26)
[2021-12-20] MEDS: ASCORBIC ACID 500 MG TABLET GT SCH ×2 (08:26→17:16)
[2021-12-20] MEDS: DEXAMETHASONE SOD PHOSPHATE 10 MG/ML VIAL IV SCH (08:27)
[2021-12-20] MEDS: LEVETIRACETAM SOL (5 ML) 100 MG/ML UDC GT SCH ×2 (08:27→17:16)
[2021-12-20] MEDS: HEPARIN SODIUM, PORCINE 5000 UNITS/1 ML VIAL SQ SCH (08:30)
[2021-12-20] MEDS: SUCRALFATE 1 G/10 ML UDC GT SCH ×4 (08:31→21:45)
[2021-12-20] MEDS: SODIUM BICARBONATE 650 MG TABLET GT SCH (08:31)
[2021-12-20] MEDS: PROSTAT (PYXIS) 30 ML UDC GT SCH ×3 (08:32→17:14)
[2021-12-20] MEDS: METOPROLOL TARTRATE 25 MG TABLET GT SCH ×4 (08:37→21:45)
[2021-12-20] MEDS ORDERED: IV NS 0.9% 500 ML IV ONE (09:30)
[2021-12-20] MEDS: MEROPENEM 500 MG in IV NS 0.9% 50 ML IV SCH ×2 (11:03→23:07)
[2021-12-20] MEDS: VANCOMYCIN 1 GM in IV D5W 250ml IV SCH (11:56)
--- NOTE | 2021-12-20 12:06 | NUR ---
RN NOTES ANA MIDLINE REMOVED PER ORDER. PT WITH PIV ACCESS ON RIGHT WRIST G #20, IVF OF 1/2 NS @ 80 ML/HR CONTINUES.
[2021-12-20 16:00] VITALS: BP 144/76
[2021-12-20] MEDS: GLUCERNA 1.2 1,000 ML BOTTLE NG PRN (16:57)
[2021-12-20] MEDS: IV 1/2NS 1000 ML 1,000 ML IV PRN (17:13)
--- NOTE | 2021-12-20 18:49 | NUR ---
MS RN CLOSING NOTES PT IN BED LYING AT MODERATE HIGH BACKREST POSITION. A/O X0. OBTUNDED AND HIS EYES OPEN. PT ON COOL AEROSOL T-PIECE ON 4 LPM O2,TOLERATING WELL WITH NO SOB NOTED DURING THE DAY. IV ACCESS ON RIGHT WRIST G#20 INTACT AND PATENT WITH 1/2 NS @ 80 ML/HR INFUSING WELL, NO S.SX OF INFILTRATION AT SITE NOTED. G-TUBE IN PLACE WITH FEEDING OF GLUCERNA @ 60ML/HR IN PROGRESS, TOLERATING WELL. ASPIRATION PRECAUTIONS MAINTAINED. PT TURNED AND REPOSITIONED Q 2HRS AND PRN. KEPT CLEAN, DRY AND COMFORTABLE AT ALL TIMES. ALL NEEDS AND CARE PROVIDED WELL. RENDON CATH IN PLACE DRAINING CLEAR YELLOW URINE OUTPUT VIA GRAVITY, RENDON CARE DONE. SAFETY PRECAUTIONS IN PLACED: BED IN LOWEST LOCKED POSITION, SIDE RAILS UP X3, HOB KEPT ELEVATED, BED ALARM ON AND CALL LIGHT WITHIN REACH. WILL ENDORSE SELMA TO PARKS WORKER NURSE.
[2021-12-20 20:00] VITALS: BP 144/82
--- NOTE | 2021-12-20 20:30 | NUR ---
MS RN NOTES: RECEIVED PATIENT AWAKE EYES OPEN NO COMPLAIN OF PAIN AND DISCOMFORT AT THIS TIME, PATIENT ON T PIECE AEROSOL COOL SATURATING AT 94% WITH IV LINE AT ANA #18 WITH ONGOING 1/2NSS@80ML PER HOUR INFUSING WELL, PATIENT ON G TUBE FEEDING OF GLUCERNA 1.2@60ML PER HOUR, ON RENDON CATHETER WITH 100CC URINE OUTPUT, PATIENT KEPT CLEAN AND DRY, ALL NEEDS MET, WILL CONTINUE TO MONITOR.
--- NOTE | 2021-12-20 21:35 | NUR ---
PLACED PT ON CA 28% 5L. SPO2 94%. WILL CONTINUE TO MONITOR T/O SHIFT.
--- NOTE | 2021-12-20 23:00 | NUR ---
INCREASED O2 TO 98% COOL AEROSOL 10L DUE TO DESATURATION OF SPO2 84% . NOTIFIED RN CECIL AND CHARGE NURSE CORI. WILL CONTINUE TO MONITOR PT T/O SHIFT.
[2021-12-20] MEDS: INSULIN GLARGINE, 100 UNIT/ML CARTRIDGE SQ SCH (23:10)
[2021-12-21] MEDS: INSULIN REGULAR, HUMAN 100 UNIT/ML 3 ML VIAL SQ PRN ×4 (01:13→17:54)
--- NOTE | 2021-12-21 03:00 | NUR ---
TITRATE O2 TO 40%, SPO2 97%. RN JUS NOTIFIED. WILL CONTINUE TO MONITOR PT T/O SHIFT
--- NOTE | 2021-12-21 03:53 | NUR ---
INCREASED 02 BACK TO 98% CA 1O L DUE TO DESATURATION OF SPO2 87%. CHARGE NURSE CORI AWARE. WILL CONTINUE TO MONITOR T/O SHIFT
[2021-12-21 04:00] VITALS: BP 151/91
[2021-12-21] MEDS: IV 1/2NS 1000 ML 1,000 ML IV PRN ×2 (06:08→22:26)
[2021-12-21 06:30] LABS: BASOPHILS % (AUTO) 0.3 % (0.0-2.0); EOSINOPHILS % (AUTO) 0.1 % (0.0-6.0); HEMATOCRIT 26 % (39-51); HEMOGLOBIN 8.1 g/dL (13.5-17.5); LYMPHOCYTES # (AUTO) 1.7 K/uL (0.8-4.8); LYMPHOCYTES % (AUTO) 22.1 % (20.0-44.0); MEAN CORPUSCULAR HGB CONC 32 g/dl (31.0-36.0); MEAN CORPUSCULAR VOLUME 84 fL (80-96); MONOCYTES # (AUTO) 0.4 K/uL (0.1-1.30); MONOCYTES % (AUTO) 5.7 % (2.0-12.0); NEUTROPHILS # (AUTO) 5.6 K/uL (1.8-8.9); NEUTROPHILS % (AUTO) 71.8 % (43.0-81.0); PLATELET COUNT (AUTO) 253 K/uL (150-450); RED BLOOD CELL COUNT(AUTO) 3.04 MIL/uL (4.5-6.0); WHITE BLOOD COUNT (AUTO) 7.7 K/uL (4.3-11.0)
[2021-12-21] MEDS: BLOOD SUGAR DIAGNOSTIC 1 EACH STRIP IN SCH ×4 (06:38→17:51)
--- NOTE | 2021-12-21 07:08 | NUR ---
MS RN CLOSING NOTES: PATIENT SLEEP IN BED COMFORTABLY, BED IN LOW POSITION, CALL LIGHTS WITHIN REACH, NO COMPLAIN OF PAIN AND DISCOMFORT AT THIS TIME, PATIENT ON T PIECE, ON COOL AEROSOL SATURATING WELL, PATIENT ON G TUBE FEEDING GLUCERNA 1.2 @60ML PER HOUR, ON RENDON CATHETER WITH 700 URINE OUTPUT, PATIENT KEPT CLEAN AND DRY ALL NEEDS MET, ENDORSE TO INCOMING SHIFT.
[2021-12-21 07:14] LABS: CALCIUM, SERUM 9.1 mg/dL (8.5-10.1); CREATININE 1.7 mg/dL (0.6-1.3); MAGNESIUM 2.4 mg/dL (1.8-2.4); PHOSPHORUS 3.4 mg/dL (2.5-4.9); POTASSIUM 3.5 mmol/L (3.5-5.1)
[2021-12-21 08:00] VITALS: BP 123/77
[2021-12-21] MEDS: DOCUSATE SODIUM 250 MG CAPSULE PO SCH (08:50)
[2021-12-21] MEDS: LEVETIRACETAM SOL (5 ML) 100 MG/ML UDC GT SCH ×2 (08:50→16:21)
[2021-12-21] MEDS: SODIUM BICARBONATE 650 MG TABLET GT SCH (08:50)
[2021-12-21] MEDS: GLYCOPYRROLATE 1 MG TABLET GT SCH ×3 (08:50→16:21)
[2021-12-21] MEDS: ASPIRIN 81 MG TAB.CHEW GT SCH (08:50)
[2021-12-21] MEDS: SUCRALFATE 1 G/10 ML UDC GT SCH ×4 (08:50→22:20)
[2021-12-21] MEDS: ASCORBIC ACID 500 MG TABLET GT SCH ×2 (08:50→16:21)
[2021-12-21] MEDS: METOPROLOL TARTRATE 25 MG TABLET GT SCH ×4 (08:51→22:22)
[2021-12-21] MEDS: POLYETHYLENE GLYCOL 3350 17 GM POWD.PACK GT SCH ×2 (08:51→16:21)
[2021-12-21] MEDS: DEXAMETHASONE SOD PHOSPHATE 10 MG/ML VIAL IV SCH (08:51)
[2021-12-21] MEDS: FERROUS SULFATE (325 MG) 325 MG/TAB TABLET GT SCH ×2 (08:51→16:22)
[2021-12-21] MEDS: PROSTAT (PYXIS) 30 ML UDC GT SCH ×3 (08:52→16:23)
[2021-12-21] MEDS: FAMOTIDINE (20 MG) 20 MG TABLET PO SCH (08:52)
[2021-12-21] MEDS: PANTOPRAZOLE 40 MG/PACK PACK GT SCH (09:09)
[2021-12-21] MEDS ORDERED: IV D5W 500 ML IV ONE ×2 (10:00→18:00)
--- NOTE | 2021-12-21 10:08 | NUR ---
MS RN OPENING NOTES RECEIVED PT IN BED IN NO ACUTE SIGNS OF DISTRESS. HOB ELEVATED. PT IS A/O X0. OBTUNDED AND OPENS EYES TO PAIN. PT ON COOL AEROSOL T-PIECE ON 10 LPM O2,TOLERATING WELL WITH NO SOB NOTED. IV ACESS RIGHT WRIST INTACT AND PATENT WITH 1/2 NS @ 80 ML/HR INFUSING WELL. G-TUBE IN PLACE WITH FEEDING OF GLUCERNA @ 60ML/HR IN PROGRESS TOLERATING WELL. ASPIRATION PRECAUTIONS MAINTAINED. RENDON CATH IN PLACE DRAINING CLEAR YELLOW URINE OUTPUT VIA GRAVITY. SAFETY PRECAUTIONS IN PLACED. BED IN LOWEST LOCKED POSITION, SIDE RAILS UP X3, BED ALARM ON AND CALL LIGHT WITHIN REACH. WILL CONTINUE TO MONITOR ACCORDINGLY.
[2021-12-21] MEDS: MEROPENEM 500 MG in IV NS 0.9% 50 ML IV SCH ×2 (11:12→22:20)
[2021-12-21] MEDS: VANCOMYCIN 1 GM in IV D5W 250ml IV SCH (11:43)
--- NOTE | 2021-12-21 12:00 | NUR ---
RN NOTES REPEAT SODIUM RESULT IN, RELAYED TO JOYA MCNEILL CASUALTY INSURANCE CLAIM ADJUSTER WITH ORDER MADE AND CARRIED OUT.
[2021-12-21] MEDS: GLUCERNA 1.2 1,000 ML BOTTLE NG PRN (12:27)
[2021-12-21 16:00] VITALS: BP 146/77
[2021-12-21] MEDS ORDERED: IV D5W 1,000 ML IV ONE (19:00)
--- NOTE | 2021-12-21 19:04 | NUR ---
MS RN CLOSING NOTES PT IN BED IN NO ACUTE SIGNS OF DISTRESS. HOB ELEVATED. PT IS A/O X0. OBTUNDED AND OPENS EYES TO PAIN. PT ON COOL AEROSOL T-PIECE ON 10 LPM O2,TOLERATING WELL WITH NO SOB NOTED. IV ACCESS RIGHT WRIST INTACT AND PATENT WITH 1/2 NS @ 80 ML/HR INFUSING WELL. G-TUBE IN PLACE WITH FEEDING OF GLUCERNA @ 60ML/HR IN PROGRESS TOLERATING WELL. ASPIRATION PRECAUTIONS MAINTAINED. RENDON CATH IN PLACE DRAINING CLEAR YELLOW URINE OUTPUT VIA GRAVITY. SAFETY PRECAUTIONS IN PLACED. BED IN LOWEST LOCKED POSITION, SIDE RAILS UP X3, BED ALARM ON AND CALL LIGHT WITHIN REACH. ALL NEEDS ATTENDED AND MET, DUE MEDS GIVEN ORDERED. WILL ENDORSED TO ONCOMING SHIFT FOR SELMA.
--- NOTE | 2021-12-21 19:20 | NUR ---
MS RN OPENING NOTES: RECEIVED PATIENT IN BED, AWAKE, NON VERBAL. NO S/S OF DISTRESS NOTED. NOT MOANING. HOB ELEVATED AT ALL TIMES. CALL LIGHT WITHIN REACH. BED ALARM ON. BED IN LOWEST AND LOCKED POSITION. WITH TRACH INTACT. WITH RENDON CATHETER INTACT, DRAINING CLEAR YELLOW URINE OUTPUT.
[2021-12-21 20:00] VITALS: BP 143/80
[2021-12-21 21:26] VITALS: BP 121/57
[2021-12-21] MEDS: INSULIN GLARGINE, 100 UNIT/ML CARTRIDGE SQ SCH (22:45)
[2021-12-21] MEDS: ACETAMINOPHEN ES 500 MG TABLET GT PRN (23:12)
[2021-12-22] MEDS: INSULIN REGULAR, HUMAN 100 UNIT/ML 3 ML VIAL SQ PRN ×4 (01:02→17:45)
[2021-12-22] MEDS: BLOOD SUGAR DIAGNOSTIC 1 EACH STRIP IN SCH ×4 (06:07→17:43)
[2021-12-22 07:20] LABS: CALCIUM, SERUM 8.6 mg/dL (8.5-10.1); CREATININE 1.6 mg/dL (0.6-1.3); MAGNESIUM 2.4 mg/dL (1.8-2.4); PHOSPHORUS 2.9 mg/dL (2.5-4.9); POTASSIUM 3.2 mmol/L (3.5-5.1)
--- NOTE | 2021-12-22 08:31 | NUR ---
RN NOTES INFORMED JOYA MCNEILL NP, IF OK FOR PATIENT TO HAVE MIDLINE; VIDEOGRAPHER AGREED W/ ORDER NOTED.
[2021-12-22] MEDS ORDERED: IV D5W 500 ML IV ONE ×3 (09:00→15:30)
[2021-12-22] MEDS: DEXAMETHASONE SOD PHOSPHATE 10 MG/ML VIAL IV SCH (09:06)
[2021-12-22 09:07] VITALS: BP 166/90
[2021-12-22] MEDS: SODIUM BICARBONATE 650 MG TABLET GT SCH (09:07)
[2021-12-22] MEDS: ASCORBIC ACID 500 MG TABLET GT SCH ×2 (09:07→16:22)
[2021-12-22] MEDS: LEVETIRACETAM SOL (5 ML) 100 MG/ML UDC GT SCH ×2 (09:07→16:22)
[2021-12-22] MEDS: SUCRALFATE 1 G/10 ML UDC GT SCH ×4 (09:07→20:26)
[2021-12-22] MEDS: POLYETHYLENE GLYCOL 3350 17 GM POWD.PACK GT SCH ×2 (09:08→16:23)
[2021-12-22] MEDS: FAMOTIDINE (20 MG) 20 MG TABLET PO SCH (09:08)
[2021-12-22] MEDS: DOCUSATE SODIUM 250 MG CAPSULE PO SCH (09:08)
[2021-12-22] MEDS: PANTOPRAZOLE 40 MG/PACK PACK GT SCH (09:08)
[2021-12-22] MEDS: GLYCOPYRROLATE 1 MG TABLET GT SCH ×3 (09:08→16:22)
[2021-12-22] MEDS: FERROUS SULFATE (325 MG) 325 MG/TAB TABLET GT SCH ×2 (09:08→16:22)
[2021-12-22] MEDS: ASPIRIN 81 MG TAB.CHEW GT SCH (09:08)
[2021-12-22] MEDS: PROSTAT (PYXIS) 30 ML UDC GT SCH ×3 (09:17→16:23)
[2021-12-22] MEDS: METOPROLOL TARTRATE 25 MG TABLET GT SCH ×4 (09:18→20:27)
--- NOTE | 2021-12-22 09:30 | NUR ---
RN NOTES MIDLINE NURSE ABLE TO INSERT MIDLINE ON ANA #18, INTACT AND PATENT.
[2021-12-22] MEDS: MEROPENEM 500 MG in IV NS 0.9% 50 ML IV SCH ×2 (11:18→22:00)
[2021-12-22 11:41] LABS: BASOPHILS % (AUTO) 0.4 % (0.0-2.0); EOSINOPHILS % (AUTO) 0.4 % (0.0-6.0); HEMATOCRIT 21 % (39-51); LYMPHOCYTES # (AUTO) 0.9 K/uL (0.8-4.8); LYMPHOCYTES % (AUTO) 9.8 % (20.0-44.0); MEAN CORPUSCULAR HGB CONC 32 g/dl (31.0-36.0); MEAN CORPUSCULAR VOLUME 85 fL (80-96); MONOCYTES # (AUTO) 0.4 K/uL (0.1-1.30); MONOCYTES % (AUTO) 4.1 % (2.0-12.0); NEUTROPHILS # (AUTO) 7.8 K/uL (1.8-8.9); NEUTROPHILS % (AUTO) 85.3 % (43.0-81.0); PLATELET COUNT (AUTO) 241 K/uL (150-450); RED BLOOD CELL COUNT(AUTO) 2.48 MIL/uL (4.5-6.0); WHITE BLOOD COUNT (AUTO) 9.1 K/uL (4.3-11.0)
[2021-12-22 11:48] LABS: HEMOGLOBIN 6.8 g/dL (13.5-17.5)
[2021-12-22] MEDS ORDERED: POTASSIUM CL. PREMIX PERIPHER. 50 ML IV SCH (12:00)
--- NOTE | 2021-12-22 12:13 | NUR ---
RN NOTES PATIENT W/ STANDING CONSENT FOR BLOOD TRANSFUSION IN CHART.
[2021-12-22] MEDS: VANCOMYCIN 1 GM in IV D5W 250ml IV SCH (12:37)
--- NOTE | 2021-12-22 12:38 | NUR ---
RN NOTES RECEIVED VANCO TROUGH OF15, OK TO GIVE VANCO 1GM DOSE PER PHARMACY.
[2021-12-22 13:30] LABS: LYMPHOCYTES % (MANUAL) 10 % (16-48); MONOCYTES % (MANUAL) 5 % (0-11.0); NEUTROPHILS % (MANUAL) 85 (42-76)
--- NOTE | 2021-12-22 13:30 | NUR ---
RN NOTES PATIENT SEEN BY JOYA MCNEILL NP, W/ ORDER NOTED.
[2021-12-22] MEDS: POTASSIUM CHLORIDE 20 MEQ POWDER PACKET GT SCH ×2 (13:34→14:47)
--- NOTE | 2021-12-22 15:09 | NUR ---
RN NOTES PHLEB TECH UNABLE TO DRAW BLOOD PATIENT IS HARD STICK; UNABLE TO DRAW ENOUGH BLOOD FOR DRAW FROM MIDLINE
--- NOTE | 2021-12-22 15:59 | NUR ---
RN NOTES FAMILY AT BEDSIDE TO SEE PATIENT; UPDATED W/ PATIENT'S CONDITION AND CURRENT PROGRESS.
[2021-12-22 16:09] VITALS: BP 151/86
--- NOTE | 2021-12-22 16:12 | NUR ---
RN NOTES FAMILY IS REQUESTING INFORMATION REGARDING PALLIATIVE CARE UPON DISCHARGE FROM HOSPITAL. WILL INFORM SS/CM/MD APPLICABLE.
--- NOTE | 2021-12-22 19:26 | NUR ---
RN NOTES PATIENT CONTINUES ON T-PIECE AT 10L O2, NO RESPIRATORY DISTRESS NOTED. MIDLINE INTACT AND PATENT; STILL AWAITING BLOOD FROM LAB. REPOSITIONED IN BED FOR COMFORT. DUE MEDS GIVEN TODAY. SAFETY MEASURES MAINTAINED. ENDORSED TO SHEETMETAL PATTERNMAKER RN FOR SELMA.
[2021-12-22] MEDS: ACETAMINOPHEN 325 MG TABLET PO PRN (20:26)
[2021-12-22 20:35] VITALS: BP 147/85
[2021-12-22] MEDS: INSULIN GLARGINE, 100 UNIT/ML CARTRIDGE SQ SCH (21:21)
--- NOTE | 2021-12-22 21:48 | NUR ---
Cooling measures and tylenol given for low grade fever 99.8.
--- NOTE | 2021-12-22 22:30 | NUR ---
Called lab. No one in for blood bank until 2300 per staff.
[2021-12-22 23:53] LABS: HEMOGLOBIN 6.7 g/dL (13.5-17.5)
[2021-12-23] VITALS (8 sets, daily range): BP systolic 140–161; BP diastolic 74–102
[2021-12-23] MEDS: INSULIN REGULAR, HUMAN 100 UNIT/ML 3 ML VIAL SQ PRN ×4 (00:20→17:20)
[2021-12-23] MEDS: BLOOD SUGAR DIAGNOSTIC 1 EACH STRIP IN SCH ×4 (00:23→17:20)
[2021-12-23] MEDS: CLONIDINE HCL 0.1 MG TABLET GT PRN (00:35)
[2021-12-23] MEDS: IV 1/2NS 1000 ML 1,000 ML IV PRN (00:52)
--- NOTE | 2021-12-23 01:00 | NUR ---
Blood transfusion started. Will monitor for adverse reactions.
--- NOTE | 2021-12-23 01:31 | NUR ---
Patient tolerating transfusion well, no adverse reactions seen. VS WNL.
--- NOTE | 2021-12-23 03:46 | NUR ---
Patient tolerated blood transfusion well. End of transfusion VS: 148/78, HR 101, temp 98.8, O2 sat 99% on 10L cool aerosol via trach. No signs of distress.
[2021-12-23] MEDS: GLUCERNA 1.2 1,000 ML BOTTLE NG PRN (06:42)
[2021-12-23 07:14] LABS: BASOPHILS % (AUTO) 0.4 % (0.0-2.0); EOSINOPHILS % (AUTO) 0.5 % (0.0-6.0); HEMATOCRIT 21 % (39-51); HEMOGLOBIN 7.8 g/dL (13.5-17.5); LYMPHOCYTES # (AUTO) 1.7 K/uL (0.8-4.8); MEAN CORPUSCULAR HGB CONC 38 g/dl (31.0-36.0); MEAN CORPUSCULAR VOLUME 89 fL (80-96); MONOCYTES # (AUTO) 0.5 K/uL (0.1-1.30); MONOCYTES % (AUTO) 5.5 % (2.0-12.0); NEUTROPHILS # (AUTO) 6.7 K/uL (1.8-8.9); NEUTROPHILS % (AUTO) 74.6 % (43.0-81.0); PLATELET COUNT (AUTO) 204 K/uL (150-450); RED BLOOD CELL COUNT(AUTO) 2.33 MIL/uL (4.5-6.0)
[2021-12-23 07:16] LABS: CALCIUM, SERUM 8.7 mg/dL (8.5-10.1); CREATININE 1.3 mg/dL (0.6-1.3); MAGNESIUM 2.4 mg/dL (1.8-2.4); PHOSPHORUS 3.3 mg/dL (2.5-4.9); POTASSIUM 3.7 mmol/L (3.5-5.1)
--- NOTE | 2021-12-23 07:17 | NUR ---
RN CLOSING NOTES PAtient has been obtunded during shift responsive only to light and deep pain. Unable to wean off of 10L cool aerosol via trach. Suctioned PRN thin white secretions. Temperature resolved and patient tolerated blood transfusion well. During thursday weekly skin check patient was noted to have open area to sacrum, clean with NS, pat dry, apply mepilex, repositioning and offloading, put in order for wound care consult. Tolerating G-tube feeding well. 40cc residual only.
--- NOTE | 2021-12-23 07:18 | NUR ---
MS RN OPENING NOTES RECEIVED PT IN BED IN NO ACUTE SIGNS OF DISTRESS. HOB ELEVATED. PT IS A/O X0. OBTUNDED AND OPENS EYES TO PAIN. PT ON COOL AEROSOL T-PIECE ON 10 LPM O2,TOLERATING WELL WITH NO SOB NOTED. IV ACESS RIGHT UPPER ARM MIDLINE G-TUBE IN PLACE WITH FEEDING OF GLUCERNA @ 60ML/HR IN PROGRESS TOLERATING WELL. ASPIRATION PRECAUTIONS MAINTAINED. RENDON CATH IN PLACE DRAINING CLEAR YELLOW URINE OUTPUT VIA GRAVITY. SAFETY PRECAUTIONS IN PLACED. BED IN LOWEST LOCKED POSITION, SIDE RAILS UP X3, BED ALARM ON AND CALL LIGHT WITHIN REACH. WILL CONTINUE TO MONITOR
--- NOTE | 2021-12-23 07:30 | NUR ---
RT NOTE RECEIVED PT ON CA 98% (10LPM) SPO2 95 %. SX DONE. SMALL, WHITE, FOUL SMELLING SECRETIONS SX'ED. NO SOB OR S/S OF ACUTE RESPIRATORY DISTRESS NOTED. WILL CONTINUE TO MONITOR T/O SHIFT.
--- NOTE | 2021-12-23 08:08 | NUR ---
WOUND CARE CONSULT: PT PRESENTS WITH SCARRING TO SACRUM WHICH EXTENDS TO BUTTOCKS AND INCONTINENCE ASSOCIATED SKIN DAMAGE OVER PREVIOUS SCARRING. PT NOTED TO BE INCONTINENT OF LOOSE STOOL. RECOMMENDATIONS MADE FOR SKIN PROTECTION. DISCUSSED WITH NURSING STAFF. MD IN AGREEMENT WITH PLAN OF CARE. PT TO BE PLACED ON ADORE ISOFLEX LOW AIRLOSS BED.
[2021-12-23] MEDS: PANTOPRAZOLE 40 MG/PACK PACK GT SCH (08:11)
[2021-12-23] MEDS: FAMOTIDINE (20 MG) 20 MG TABLET PO SCH (08:11)
[2021-12-23] MEDS: SODIUM BICARBONATE 650 MG TABLET GT SCH (08:11)
[2021-12-23] MEDS: ASPIRIN 81 MG TAB.CHEW GT SCH (08:11)
[2021-12-23] MEDS: LEVETIRACETAM SOL (5 ML) 100 MG/ML UDC GT SCH ×2 (08:11→16:27)
[2021-12-23] MEDS: SUCRALFATE 1 G/10 ML UDC GT SCH ×3 (08:11→16:27)
[2021-12-23] MEDS: POLYETHYLENE GLYCOL 3350 17 GM POWD.PACK GT SCH ×2 (08:12→16:27)
[2021-12-23] MEDS: DEXAMETHASONE SOD PHOSPHATE 10 MG/ML VIAL IV SCH (08:12)
[2021-12-23] MEDS: DOCUSATE SODIUM 250 MG CAPSULE PO SCH (08:12)
[2021-12-23] MEDS: ASCORBIC ACID 500 MG TABLET GT SCH ×2 (08:12→16:27)
[2021-12-23] MEDS: GLYCOPYRROLATE 1 MG TABLET GT SCH ×3 (08:12→16:27)
[2021-12-23] MEDS: FERROUS SULFATE (325 MG) 325 MG/TAB TABLET GT SCH ×2 (08:12→16:27)
[2021-12-23] MEDS: METOPROLOL TARTRATE 25 MG TABLET GT SCH ×3 (08:13→16:27)
[2021-12-23] MEDS: ACETAMINOPHEN 325 MG TABLET PO PRN ×2 (08:15→15:25)
[2021-12-23] MEDS: PROSTAT (PYXIS) 30 ML UDC GT SCH ×3 (08:46→16:27)
[2021-12-23] MEDS: ERGOCALCIFEROL (VITAMIN D 2) 50,000 UNIT CAPSULE GT SCH (08:49)
[2021-12-23] MEDS: MEROPENEM 500 MG in IV NS 0.9% 50 ML IV SCH (09:31)
[2021-12-23] MEDS: VANCOMYCIN 1 GM in IV D5W 250ml IV SCH (10:01)
--- NOTE | 2021-12-23 18:23 | NUR ---
MS RN CLOSING NOTES PT IN BED IN NO ACUTE SIGNS OF DISTRESS. HOB ELEVATED. PT IS A/O X0. OBTUNDED AND OPENS EYES TO PAIN. PT ON COOL AEROSOL T-PIECE ON 10 LPM O2,TOLERATING WELL WITH NO SOB NOTED. IV ACCESS RIGHT UPPER ARM MIDLINE PATENT AND INTACT. G-TUBE IN PLACE WITH FEEDING OF GLUCERNA @ 60ML/HR IN PROGRESS TOLERATING WELL. ASPIRATION PRECAUTIONS MAINTAINED. RENDON CATH IN PLACE DRAINING CLEAR YELLOW URINE OUTPUT VIA GRAVITY. ALL MEDICATIONS GIVEN ORDERED. FAMILY IN THE PROCESS OF CHANGING CODE STATUS WITH MD. SAFETY PRECAUTIONS IN PLACED. BED IN LOWEST LOCKED POSITION, SIDE RAILS UP X3, BED ALARM ON AND CALL LIGHT WITHIN REACH. WILL ENDORSE TO ONCOMING SHIFT
[2021-12-23] MEDS ORDERED: GLYCOPYRROLATE 0.2 MG/ML VIAL IV PRN (18:30)
[2021-12-23] MEDS ORDERED: MORPHINE SULFATE INJ 4 MG/ML DISP.SYRIN IV PRN (18:30)
[2021-12-23] MEDS ORDERED: MORPHINE SULFATE PF DRIP 250 MG in IV D5W 240 ML IV PRN (18:30)
[2021-12-23] MEDS ORDERED: LORAZEPAM INJ 2 MG/ML VIAL IV PRN (18:30)
[2021-12-23] MEDS ORDERED: SCOPOLAMINE PATCH 1 MG/72HR TD SCH (18:30)
--- NOTE | 2021-12-23 19:54 | NUR ---
RN OPENING NOTES Patient is obtunded, responding to pain only. Currently on 10L O2 via cool aerosol to trach. and Glucerna at 60mL/hr to G-tube feeding. ANA midline flushed and patent. Patient will soon go to comfort measures only. Called central supply to find a [employer]OL MA[employer]TE[employer] WORKER pump for morphine drip. None in central at this time but central supply employee representative is searching the hospital. Medication is currently in Med room safe. Family at bedside.
[2021-12-23] MEDS ORDERED: KEY,NONCONTROL,TO KEEP IN PYXI 1 EA MC ONE ×2 (19:59→21:32)
[2021-12-23] MEDS: ACETAMINOPHEN ES 500 MG TABLET GT PRN (20:41)
--- NOTE | 2021-12-23 21:54 | NUR ---
morphine drip initiated with charge operator as co-signer. 5mg/hr. Patient appears calm at this time.
--- NOTE | 2021-12-23 21:55 | NUR ---
GTF stopped, flushed. IVF only on TKO at 10cc/hr per family request. Comfort measures only.
--- NOTE | 2021-12-23 23:05 | NUR ---
Family states they are ready for oxygen to be removed by RT. RT called. Patient appears comfortable. Not in distress.
--- NOTE | 2021-12-23 23:51 | NUR ---
Ativan PRN given as per order for s/s of anxiety after removal of O2.
--- NOTE | 2021-12-24 02:00 | NUR ---
Patient TOD 0025 called by charge auditor. Pupils dilated, no pulses able to be palpated, upon auscultation no heart sounds, or breath sounds, no chest rise and fall, skin color dusky. Family at bedside. [facility], admitting, Doctor, nursing telemarketer supervisor, and mortuary notified. [facility] stated okay to release remains case number documented in paper chart. [facility] [place] [facility], per client services representative no one can apple picking supervisor body until morning, body was sent to [facility]. Addendum: 12/24/21 at 0307 by ROZINA BENAVIDEZ RN [facility] case # [id number]
== END 2021-12-24 00:25 | DRG 720 ==
LOC: ER 20:20 → TELE-TD 12-13 02:38 → MEDSG1 12-13 02:55 → MED 12-17 20:17
PROVIDERS: ADMIT Internal Medicine; ATTEND Registered Nurse
PROC: 5A1935Z Respiratory Ventilation, Less than 24 Consecutive Hours (ICD-10-PCS; 2021-12-13)
PROC: 05H933Z Insertion of Infusion Device into Right Brachial Vein, Percutaneous Approach (ICD-10-PCS; 2021-12-13)
PROC: 0DH63UZ Insertion of Feeding Device into Stomach, Percutaneous Approach (ICD-10-PCS; principal; 2021-12-16)
PROC: 30233N1 Transfusion of Nonautologous Red Blood Cells into Peripheral Vein, Percutaneous Approach (ICD-10-PCS; 2021-12-22)
DX: A41.1 Sepsis due to other specified staphylococcus (principal); J96.21 Acute and chronic respiratory failure with hypoxia; N17.0 Acute kidney failure with tubular necrosis; E11.00 Type 2 diabetes mellitus with hyperosmolarity without nonketotic hyperglycemic-hyperosmolar coma (NKHHC); G93.41 Metabolic encephalopathy; E43 Unspecified severe protein-calorie malnutrition; E87.2 Acidosis; K94.23 Gastrostomy malfunction; J18.9 Pneumonia, unspecified organism; I69.354 Hemiplegia and hemiparesis following cerebral infarction affecting left non-dominant side; R13.10 Dysphagia, unspecified; E86.0 Dehydration; N39.0 Urinary tract infection, site not specified; I10 Essential (primary) hypertension; E11.65 Type 2 diabetes mellitus with hyperglycemia; E78.5 Hyperlipidemia, unspecified; K21.9 Gastro-esophageal reflux disease without esophagitis; Z66 Do not resuscitate; Z51.5 Encounter for palliative care; Z20.822 Contact with and (suspected) exposure to COVID-19; Z79.84 Long term (current) use of oral hypoglycemic drugs; Z79.4 Long term (current) use of insulin; Z79.82 Long term (current) use of aspirin; Z79.51 Long term (current) use of inhaled steroids; Z79.899 Other long term (current) drug therapy; I25.10 Atherosclerotic heart disease of native coronary artery without angina pectoris; D64.9 Anemia, unspecified; K29.70 Gastritis, unspecified, without bleeding; Z16.12 Extended spectrum beta lactamase (ESBL) resistance; Y95 Nosocomial condition; R74.01 Elevation of levels of liver transaminase levels; Y92.9 Unspecified place or not applicable; Y84.8 Other medical procedures as the cause of abnormal reaction of the patient, or of later complication, without mention of misadventure at the time of the procedure
CPT/HCPCS: 31720; 36415; 36600; 43246; 71045-TC; 71250-TC; 74018; 76770-TC; 80048-TC; 80076-TC; 80202-TC; 81001; 82803-TC; 82962-TC; 83605-TC; 83735-TC; 84100-TC; 84295-TC; 84484-TC; 85025-TC; 85027-TC; 85378-TC; 85730-TC; 86140-TC; 86850-TC; 87040-TC; 87081-TC; 87086-TC; 87186-TC; 94003-TC; 94640-TC; 94664-TC; 94799-TC; A4349; A6253; A7526; C9803; G0378; J0456; J0690; J0713; J1100; J1644; J1815; J1953; J2060; J2185; J2270; J2274; J2543; J2704; J3370; J3480; J3490; J7030; J7040; J7050; J7060; J7070; P9016; Q9963; U0003